=== PATIENT | male | born 1935 | race Caucasian/White ===

== ENCOUNTER 2020-06-14 18:34 | Observation (INO) | payer OTHER ==
--- OUTSIDE RECORDS SUMMARY | 2020-06-14 18:37 | XMS REPORT | Clinical Summary ---
:1935 Author Organization [facility] Address [address] [place] [address] Care Team Providers Name Role Phone Asked, Pcp Primary Care Provider Unavailable Allergies Active Allergy Reactions Severity Noted Date Comments Cefuroxime 03/27/2018 Morphine High 04/25/2016 Redness going u p his arm. Redness going u p his arm. Redness going u p his arm. Opioids - Morphine 07/14/2015 Analogues Penicillins Rash Low 04/25/2016 Sulfa (Sulfonamide Shortness Of Breath High 04/25/2016 Antibiotics) Sulfasalazine 01/21/2012 Medications Medication Sig Dispensed Refills Start Date End Date Status fluticasone (FLONASE) 2 sprays by Each 1 11/25/2016 Active 50 mcg/actuation nasal Nare route as spray needed. MULTIVITAMIN ORAL Take 1 tablet by 0 Active mouth. calcium carb-vitamin Take 1,200 mg by 0 Active D3-vit K2 600 mg-1,000 mouth. unit-90 mcg tablet warfarin (COUMADIN) 7.5 Take 7.5 mg by 0 Active MG tablet mouth. Taking for 6 days vitamins Take by mouth 2 0 Acti ve A,C,V-cecf-nwjerj (two) times a (ICAPS AREDS) day. [id number] onsr-tj-kwhj capsule metoprolol succinate XL Take 25 mg by 3 08/06/2018 Active (TOPROL-XL) 25 mg 24 hr mouth daily. tablet doxazosin (CARDURA) 4 TAKE 1 TABLET BY 90 tablet 4 09/09/2018 Active MG tablet MOUTH EVERY DAY Additional Information Patient taking differently: 4 mg oral nightly, Informant: Self, Reported on 10/27/2019 11:14 AM LISINOPRIL-HCTZ 20-12.5 Take 1 tablet by 0 Active MG COMBO DOSE mouth daily. aspirin (ECOTRIN) 81 MG Take 1 tablet (81 90 tablet 4 04/13/20 1 Active enteric coated tablet mg total) by mouth 9 daily. amLODIPine (NORVASC) 5 Take 1 tablet (5 90 tablet 3 10/18/19 Active mg tablet mg total) by mouth 0 21 daily. lansoprazole (PREVACID) Take 30 mg by 0 Active 30 MG capsule mouth daily. psyllium husk (METAMUCIL Take by mouth. 2 0 Active ORAL) tsp. daily vit Place under the 0 Acti ve D2-byznew-O6-V00-znaovvo tongue. h (B COMPLEX) 1.7-20-2-1.2 mg/mL liquid cholecalciferol, vitamin Take 2,000 Units 0 Active D3, (VITAMIN D3) 2,000 by mouth daily. unit tablet atorvastatin (LIPITOR) TAKE 1 TABLET BY 90 tablet 4 Active 40 MG tablet MOUTH EVERY DAY 0 warfarin (COUMADIN) 5 MG TAKE 1 & 1/2 TABS 135 tablet 3 Active tablet 6 DAYS A WEEK AND 0 1 TAB ONE DAY A WEEK lansoprazole (PREVACID) TAKE 1 CAPSULE 90 capsule 2 10/27/19 Discontinued 30 MG capsule EVERY DAY 6 20 atorvastatin (LIPITOR) Take 1 tablet (40 90 tablet 4 10/27/19 Discontinued 40 MG tablet mg total) by mouth 9 20 daily. warfarin (COUMADIN) 5 MG TAKE 1 & 1/2 TABS 135 tablet 3 10/27/19 Discontinued tablet 6 DAYS A WEEK AND 9 20 1 TAB ONE DAY A WEEK sodium citrate (CITRA PH Take by mouth. 0 10/27/19 Discontinued ORAL) Powder dissolves 20 in water once daily atorvastatin (LIPITOR) Take 40 mg by 0 06/01 Discontinued 40 MG tablet mouth daily. 20 Default OP ins doxazosin (CARDURA) 4 MG Take 4 mg by mouth 0 10/28/19 Discontinued tablet nightly. 20 warfarin (COUMADIN) 5 MG Take 5 mg by mouth 0 03/27/20 Discontinued tablet daily. Taking only 20 on Tuesdays. doxazosin (CARDURA) 4 MG TAKE 1 TABLET BY 90 tablet 4 10/28/19 2 10/28/19 Discontinued tablet MOUTH EVERY DAY 0 20 Active Problems Problem Noted Date Atherosclerosis of mi[place]kmaq coronary artery of mi[place]ma[place] he art without angina 10/21/2019 pectoris Overview: Added automatically from request for [place] jimenez [id number] L[place]ia angina 10/21/2019 Coronary atherosclerosis of mi'kmaq coronary artery 11/2018 History of colonic polyps 04/13/2019 longterm current use of anticoagulant therapy 019 Multiple nodules of lung 03/17/2019 Adenocarcinoma of prostate 02/23/2019 Essential hypertension 11/24/2018 Mixed hyperlipidemia 11/24/2018 Class 1 obesity due to excess calories without serious comorbidity with 11/24/2018 body mass index (BMI) of 31.0 to 31.9 in adult Anticoagulated on Coumadin 03/17/2018 Combined forms of age-related cataract of both eyes Presence of stent in coronary artery in patient with c oronary artery 08/12/2017 disease Atrial fibrillation [I48.91] 08/23/2016 Macular degeneration, bilateral 07/22/2016 Nuclear senile cataract of both eyes 07/22/2016 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 Reflux esophagitis 06/24/2012 Memory loss 01/21/2012 Resolved Problems Problem Noted Date Resolved Date Progressive angina 08/12/2017 11/12/2019 Encounters Date Type Specialty Care Team Description 06/13/2020 Telephone Cardiology Lana Rodriguez MA 06/01/2020 Telephone Cardiology [place], Anticoagulation Anuradha, STEWARD/STEWARDESS SECOND CLASS 05/16/2020 Telephone Cardiology [place], Anticoagulation Anuradha, STEWARD/STEWARDESS SECOND CLASS 05/02/2020 Telephone Cardiology [place], Anticoagulation Anuradha, STEWARD/STEWARDESS SECOND CLASS 04/19/2020 Telephone Cardiology Lana Rodriguez MA 04/04/2020 Telephone Cardiology [place], Anticoagulation Anuradha, STEWARD/STEWARDESS SECOND CLASS 03/26/2020 Refill Cardiology Jose E Lynch MD 03/22/2020 Telephone Cardiology [place], Anticoagulation Anuradha, STEWARD/STEWARDESS SECOND CLASS 03/07/2020 Telephone Cardiology [place], Anticoagulation Anuradha, STEWARD/STEWARDESS SECOND CLASS 02/22/2020 Telephone Cardiology [place], Anticoagulation Anuradha, STEWARD/STEWARDESS SECOND CLASS 02/08/2020 Telephone Cardiology [place], Anticoagulation Anuradha, STEWARD/STEWARDESS SECOND CLASS 01/25/2020 Telephone Cardiology Lana Rodriguez ANTICOAGULATIO Jude Pina, MALCOM 01/18/2020 Refill Cardiology ZoJose E whitman Refill MD Indira 01/11/2020 Telephone Cardiology Lana Rodriguez ANTICOAGULATIO Jude Pina, MALCOM 01/04/2020 Telephone Cardiology [place], Anticoagulation Anuradha, STEWARD/STEWARDESS SECOND CLASS 12/22/2019 Telephone Cardiology [place], Anticoagulation Anuradha, STEWARD/STEWARDESS SECOND CLASS 12/08/2019 Telephone Cardiology [place], Anticoagulation Anuradha, STEWARD/STEWARDESS SECOND CLASS 11/09/2019 [facility] Atrial fibri llation, unspecified type (HCC) (Primary Dx); MD Indira Coronary artery disease with angina pectoris, unspecified vessel or lesion type, unspecified whether mi'kmaq or transplanted heart (HCC); Louisa pina (HCC); Essential hyper tension 11/09/2019 Telephone Cardiology [place], Anticoagulation Anuradha, STEWARD/STEWARDESS SECOND CLASS 10/28/2019 Surgery Procedural Lazaro Meza Selective coron scott Cardiology MD Susan angiography [[id number] (CPT)] 10/28/2019 Hospital Encounter Procedural Lazaro Meza Atheroscl erosis of Cardiology MD Susan mi'kmaq coronary artery of mi'kmaq heart without angina pectoris 10/27/2019 [facility] Indira 10/26/2019 Telephone Cardiology [place], Anticoagulation Anuradha, STEWARD/STEWARDESS SECOND CLASS 10/21/2019 Orders Only Cardiology Libia, Lorenzo [employer] [facility] [place] mi'kmaq coronary artery of mi'kmaq heart without angina pectoris (Primary Dx) 10/19/2019 Office Visit Cardiology Jose E Lynch Atrial fibri llation, unspecified type (HCC) (Primary Dx); MD Indira Essential hyper tension; Mixed hyperlipi demia; Louisa pina (HCC) 10/14/2019 Telephone Cardiology [place], Anticoagulation Anuradha, STEWARD/STEWARDESS SECOND CLASS 09/28/2019 Telephone Cardiology Lana Rodriguez ANTICOAGULATIO Jude Pina, MALCOM 09/20/2019 Telephone Cardiology [place], Anticoagulation Anuradha, STEWARD/STEWARDESS SECOND CLASS 09/01/2019 Telephone Cardiology [place], Anticoagulation Anuradha, STEWARD/STEWARDESS SECOND CLASS 08/18/2019 Telephone Cardiology [place], Anticoagulation Anuradha, STEWARD/STEWARDESS SECOND CLASS 08/04/2019 Telephone Cardiology Lana Rodriguez ANTICOAGULATIO Jude Pina, MALCOM 07/20/2019 Telephone Cardiology [place], Anticoagulation Anuradha, STEWARD/STEWARDESS SECOND CLASS 07/06/2019 Telephone Cardiology [place], Anticoagulation Anuradha, STEWARD/STEWARDESS SECOND CLASS 06/22/2019 Telephone Cardiology Naeem Anticoagulation Anuradha, STEWARD/STEWARDESS SECOND CLASS after 06/14/2019 Family History Medical History Relation Name Comments Colon cancer Father Liam Loredo Colon polyps Father Liam Loredo No Known Problems Mother Relation Name Status Comments Father Liam Loredo Mother Social History Tobacco Use Types Packs/Day Years Used Date Former Smoker Cigarettes, Pipe, Cigars 1.5 10 Qu it: 1970 Smokeless Tobacco: Never Used Tobacco Cessation: Counseling Given: No Alcohol Use Drinks/Week oz/Week Comments Not Currently Sex Assigned at Date Recorded Not on file Job Start Date Occupation Industry Not on file Not on file Not on file Travel History Travel Start Travel End No recent travel history available. Last Filed Vital Signs Vital Sign Reading Time Taken Comments Blood Pressure 151/80 11/19/2019 9:44 AM HEEL [facility]DER Pulse 60 11/19/2019 9:44 AM HEEL MOLDER Temperature 36.9 C (98.5 F) 10/28/2019 1:30 PM HEEL MOLDER Respiratory Rate 16 11/09/2019 10:02 AM HEEL MOLDER Oxygen Saturation 100% 11/19/2019 9:44 AM HEEL MOLDER Inhaled Oxygen Concentration - - Weight 102 kg (224 lb) 11/19/2019 9:44 AM HEEL MOLDER Height 167.6 cm (5' 6") 11/19/2019 9:44 AM HEEL MOLDER Body Mass Index 36.15 11/19/2019 9:44 AM HEEL MOLDER Plan of Treatment Health Maintenance Due Date Last Done Comments SHINGLES VACCINES (#1) 1984 65+ PNEUMOCOCCAL VACCINE (1 of 2 - PCV13) 1999 INFLUENZA VACCINE 07/13/2020 07/15/2019, 07/14/2018 Procedures Procedure Name Priority Date/Time Associated Diagnosis Comme nts PROTHROMBIN TIME WITH Routine 06/13/2020 Result s for this INR procedure are i n the results section. PROTHROMBIN TIME WITH Routine 05/31/2020 Result s for this INR procedure are i n the results section. PROTHROMBIN TIME WITH Routine 05/02/2020 Result s for this INR procedure are i n the results section. PROTHROMBIN TIME WITH Routine 04/18/2020 Result s for this INR procedure are i n the results section. PROTHROMBIN TIME WITH Routine 04/04/2020 Result s for this INR procedure are i n the results section. PROTHROMBIN TIME WITH Routine 03/21/2020 Result s for this INR procedure are i n the results section. PROTHROMBIN TIME WITH Routine 03/07/2020 Result s for this INR procedure are i n the results section. PROTHROMBIN TIME WITH Routine 02/22/2020 Result s for this INR procedure are i n the results section. PROTHROMBIN TIME WITH Routine 02/08/2020 Result s for this INR procedure are i n the results section. PROTHROMBIN TIME WITH Routine 01/25/2020 Result s for this INR procedure are i n the results section. PROTHROMBIN TIME WITH Routine 01/11/2020 Result s for this INR procedure are i n the results section. PROTHROMBIN TIME WITH Routine 01/04/2020 Result s for this INR procedure are i n the results section. PROTHROMBIN TIME WITH Routine 12/22/2019 Result s for this INR procedure are i n the results section. PROTHROMBIN TIME WITH Routine 12/08/2019 Result s for this INR procedure are i n the results section. NM MYOCARDIAL Routine 11/19/2019 3:36 Coronary artery Results for this PERFUSION STRESS REST PM HEEL MOLDER disease with angina procedure are in 1 DAY pectoris, unspecified the re sults vessel or lesion type, secti on. unspecified whether mi'kmaq or transplanted heart (HCC) CV STRESS TEST Routine 11/19/2019 3:36 Coronary artery Result s for this NUCLEAR CARDIO PM HEEL MOLDER disease with angina proced ure are in pectoris, unspecified the re sults vessel or lesion type, secti on. unspecified whether mi'kmaq or transplanted heart (HCC) ECG 12-LEAD Routine 11/09/2019 10:17 Atrial fibrillation, Res ults for this AM [facility]EL M[facility]DER unspecified type (HCC) proce dure are in the results section. PROTHROMBIN TIME WITH Routine 11/09/2019 Result s for this INR procedure are i n the results section. CV SELECTIVE CORONARY Routine 10/28/2019 12:57 Atherosclerosis of Results for this ANGIOGRAPHY PM HEEL MOLDER mi'kmaq coronary artery proce dure are in of mi'kmaq heart the results without angina section. pectoris PROTHROMBIN TIME WITH STAT 10/28/2019 11:56 Re sults for this INR AM [facility]EL M[facility]DER procedure are i n the results section. POC PANEL Routine 10/28/2019 11:54 Results for this AM [facility]EL [facility]DER procedure are i n the results section. ESTIMATED GFR Routine 10/28/2019 11:54 Results fo r this AM [facility]EL [facility]DER procedure are i n the results section. PROTHROMBIN TIME WITH Routine 10/26/2019 Result s for this INR procedure are i n the results section. COMPREHENSIVE Routine 10/19/2019 12:13 Atrial fibrillation, Re sults for this METABOLIC PANEL PM HEEL MOLDER unspecified type (HCC) procedure are in Essential hypert ension the results Mixed hyperlipidemia section . CBC WITH PLATELET AND Routine 10/19/2019 12:13 Atrial fibrilla tion, Results for this DIFFERENTIAL PM HEEL MOLDER unspecified type (HCC) procedure are in Essential hypert ension the results Mixed hyperlipidemia section . ECG 12-LEAD Routine 10/19/2019 11:10 Atrial fibrillation, Res ults for this AM HEEL MOLDER unspecified type (HCC) proce dure are in the results section. PROTHROMBIN TIME WITH Routine 10/13/2019 Result s for this INR procedure are i n the results section. PROTHROMBIN TIME WITH Routine 09/28/2019 Result s for this INR procedure are i n the results section. PROTHROMBIN TIME WITH Routine 09/16/2019 Result s for this INR procedure are i n the results section. PROTHROMBIN TIME WITH Routine 09/01/2019 Result s for this INR procedure are i n the results section. PROTHROMBIN TIME WITH Routine 08/18/2019 Result s for this INR procedure are i n the results section. PROTHROMBIN TIME WITH Routine 08/04/2019 Result s for this INR procedure are i n the results section. PROTHROMBIN TIME WITH Routine 07/20/2019 Result s for this INR procedure are i n the results section. PROTHROMBIN TIME WITH Routine 07/06/2019 Result s for this INR procedure are i n the results section. PROTHROMBIN TIME WITH Routine 06/22/2019 Result s for this INR procedure are i n the results section. after 06/14/2019 Results Prothrombin time with INR (06/13/2020)Only the most recent of26 resultswithin the time period is included. Pathologist [facility] [place] 2.50 EXTERNAL LAB NON-INTERFACED Specimen Blood Performing Organization Address [facility] Phone Number EXTERNAL LAB NON-INTERFACED Cv stress test (11/19/2019 3:36 PM HEEL MOLDER) Resting HR 66 [facility] Resting BP 151 [facility] Peak MET Achieved 1.0 [facility] Protocol Name Isauro [facility] Time in Exercise 00:00:15 [facility] Phase Max Systolic BP 151 [facility] Max Diastolic BP 80 [facility] Max Heart Rate 91 [facility] Max Predicted Heart 135 [facility] Rate Target HR Formula (220 - Age)*85% [facility] Test Indication coronary artery disease [facility] with angina pectioris Arrhy During Ex [facility] ECG Interp Before EX [facility] ECG Interp During Ex [facility] Ex Summary Comment [facility] Overall HR Response [facility] to Exercise Overall BP Response [facility] To Exercise Reason for As per Isauro [facility] Termination protocol Stress Test Waveform interpreted in [facility] Impression report associated with image study. No interpretation is provided as part of this Stress ECG report.--Electronically Signed By Maycol COVARRUBIAS, Radha Monteiro ([id number]), editorial director Jacqueline Flannery ([id number]) on 11/23/2019 9:14:38 AM Specimen Narrative Performed At This result has an attachment that is no t available. Performing Organization Address City/State/Zipcode Phone Number [facility] [address] [place] [address] Nd myocardial perfusion (11/19/2019 3:36 PM HEEL MOLDER) Specimen Narrative Performed At [facility] [address] [facility], [address] [place] [id number] Myocardial Pe rfusion Imaging Report Pat.Name: AV LOREDO Pat.ID: [id number]Date: 11/19/2019 Refer.MD: JOSE E LYNCH MD Exam Time: 10:38:00 AM Study Type:Myocardial Perfusion Imaging Height: 69in Weight: 224lb BSA: 2.17 m2 Ag e: 1935,84Y Sex: MALE Nuclear Tech:GEOVANI LassiterMT, [facility] ( [place]) Nuclear Event ID:[id number] Order ID: [id number] Reason for Study:CAD, unspecified*, Shor tness of breath Procedures: Single Day Stress / Rest Race: Clinical Symptoms:Regadenoson SUMMARY: BASELINE ECG Atrial fibrillation with slow ventricular response, Nonspecific ST abnormality STRESS TEST RESULTS Maximal Predicted HR 135 beats/minute 85% Maximal Predicted HR 114 beats/minute Stress Test Duration 1 minutes 00 seco nds Resting Heart Rate 66 beats/minute Max imal Heart Rate 91 beats/minute Resting Blood Pressure 151/80 mmHg Max imal Blood Pressure 151/80 mmHg % Maximal Heart Rate Achieved 67% Symptoms During Test None Reason for Stopping Test As per regade noson protocol Maximal ST-segment shift None Stress-Induced Arrhythmias None Ischemic electrocardiographic changes (S T-segment depression) did not occur at peak regadenoson stress. _. STRESS TEST INTERPRETATION Normal saturnino l regadenoson stress test. _. SCINTIGRAPHIC RESULTS Perfusion Defect Size (% LV) 0 % Total 0 % Ischemia 0 % Scar Left Ventricular Perfusion Results There is normal tracer distribution duri ng stress and rest. Gated SPECT Results The post-stress left ventricular ejectio n fraction is 73 % with normal regional wall motion and left ventricula r thickening. Left ventricular end-diastolic volume is 88 m l; end-systolic volume is 24 ml. The left ventricle is of normal size at stress and at rest. The right ventricle is of normal size with n ormal wall motion. Conclusion Normal regadenoson Tc-99m tetrofosmin my ocardial perfusion study. The left ventricular ejection fraction is no rmal. Comments Patients with a normal stress myocardial perfusion study have a low (< 1%) annual risk of cardiac or nonf atal myocardial infarction. Study Quality/Artifacts The study quality is good. The mild redu ction in basal inferolateral wall counts during stress is probably du e to diaphragmatic and other soft tissue attenuation artifacts rather than coronary artery disease. Comparison to Previous Study The previous study dated 02/03/2017 was a lso normal. FINDINGS: Signed 11/19/2019 04:14 PM Radha Severino MD Procedure Note Interface, Radiology Results In - 2019 4:14 PM HEEL MOLDER Nuclear Cardiology L [facility] [address] [facility], [address] [place], [place] [address] Fax: Myocardial Perfusion I magganesh Report Pat.Name: AV LOREDOI D: [id number] .Date: 11/19/2019 Refer .MD: JOSE E LYNCH MD Exam Time: 10:38:00 AM Study Type:Myocardial Perfusion Imaging Height: 69in Weigh t: 224lb BSA: 2.17 m2 Age: 7 1935,84Y Sex: MALE Nuclear Tech:Emelina Levin [facility] ( [place]) Nuclear Event ID:[id number] Order ID: [id number] Reason for Study:CAD, unspecified*, Shor tness of breath Procedures: Single Day Stress / Rest Race: Clinical Symptoms:Regadenoson SUMMARY: BASELINE ECG Atrial fibrillation with s low ventricular response, Nonspecific ST abnormality STRESS TEST RESULTS Maximal Predicted HR 135 beats/minute 8 5% Maximal Predicted HR 114 beats/minute Stress Test Duration 1 minutes 00 secon ds Resting Heart Rate 66 beats/minute Maxi mal Heart Rate 91 beats/minute Resting Blood Pressure 151/80 mmHg Maxi mal Blood Pressure 151/80 mmHg % Maximal Heart Rate Achieved 67% Symptoms During Test None Reason for Stopping Test As per regaden oson protocol Maximal ST-segment shift None Stress-Induced Arrhythmias None Ischemic electrocardiographic changes (S T-segment depression) did not occur at peak regadenoson stress. _. STRESS TEST INTERPRETATION Normal saturnino l regadenoson stress test. _. SCINTIGRAPHIC RESULTS Perfusion Defect Size (% LV) 0 % Total 0 % Ischemia 0 % Scar Left Ventricular Perfusion Results There is normal tracer distribution duri ng stress and rest. Gated SPECT Results The post-stress left ventricular ejectio n fraction is 73 % with normal regional wall motion and left ventricula r thickening. Left ventricular end-diastolic volume is 88 m l; end-systolic volume is 24 ml. The left ventricle is of normal size at stress and at rest. The right ventricle is of normal size with n ormal wall motion. Conclusion Normal regadenoson Tc-99m tetrofosmin my ocardial perfusion study. The left ventricular ejection fraction is no rmal. Comments Patients with a normal stress myocardial perfusion study have a low (< 1%) annual risk of cardiac or nonf atal myocardial infarction. Study Quality/Artifacts The study quality is good. The mild redu ction in basal inferolateral wall counts during stress is probably du e to diaphragmatic and other soft tissue attenuation artifacts rather than coronary artery disease. Comparison to Previous Study The previous study dated 02/03/2017 was a lso normal. FINDINGS: Signed 11/19/2019 04:14 PM Radha Severino MD Performing Organization Address [facility] Phone Number [facility] [id number] [place] [address] ECG 12 lead (11/09/2019 10:17 AM HEEL MOLDER)Only the most recent of2 resultswithin the time period is included. Pathologist Sig nature Ventricular rate 61 [facility] Atrial rate 88 [facility] QRSD interval 92 [facility] QT interval 428 [facility] QTC interval 430 [facility] QRS axis 1 -39 [facility] T wave axis -20 [facility] EKG impression Atrial [facility] fibrillation-Left axis deviation-Abnormal ECG-In automated comparison with ECG of 19-OCT-2019 11:10,-No significant change was found- Specimen Narrative Performed At This result has an attachment that is no t available. Performing Organization Address City/[facility] Phone Number [facility] [address] [place] [address] blood bank laboratory technologist procedure (10/28/2019 12:57 PM HEEL MOLDER) Specimen Narrative Performed At This result has an attachment that is no t available. PATIENT PROFILE: SYNGO 84 YO M with PMHx of HTN, HLD, Afib and CAD now presen ting with worsening angina. PROCEDURE DETAILS: The right radial artery was located, skin was infiltra valorie was lidocaine. The artery was accessed under ultrasound guidance delores carrera the Seldinger technique, and a 6F glidesheath was inserted. NTG and verapamil were administered intra-arterially via sheath. Heparin was administered intravenously. A TIG catheter was advanced over a wh oley wire and selective coronary angiography was performed, standard views were obtained. 6Fr 3DRC was used for right coronary angiogr aphy. At the end of the procedure, the right radial sheath w as removed and TR band was applied. DIAGNOSTIC ANGIOGRAM: LMT: Mild (20%) stenosis distally. LAD: Mild (40%) stenosis proximal and distal to prior stent. Patent stent with no ISR in mid LAD LCx: Mild disease in the proximal segment. Non dominan t artery. RCA: Mild (40%) disease in the proximal segment. CONCLUSION: - Patent stent in mid LAD. - Mild disease elsewhere. - No significant interval changes since the last cath in 2016. PLAN: - Aggressive medical management and life style modific ations Performing Organization Address [facility] Phone Number [facility] [address] [place] [address], Estimated GFR (10/28/2019 11:54 AM HEEL MOLDER) [facility] Estimated GFR 77 mL/min/1.73 [facility] Comment: HOSPITAL Catergory Units Interpretation G1 >=90 Normal or high G2 60-89 Mildly decreased G3a 45-59 Mildly to moderately decreas ed G3b 30-44 Moderately to severely decre ased G4 15-29 Severely decreased G5 <15 Kidney failure The eGFR was calculated using the Chronic Kidney Disea se Epidemiology Collaboration (CKD-EPI) equation. Interpretation is based on recommendations of the National Kidney Foundation-Kidney Disease Outcomes Lenin lity Initiative (NKF-KDOQI) published in 2014. Specimen Blood Performing Organization Address [facility] [facility]/Zipcode Phone Number [facility] DEPARTMENT OF PATHOLOGY AND [address] [place], [place] [address] GENOMIC MED[address]INE [address] [address] POC panel (10/28/2019 11:54 AM HEEL MOLDER) Pathologist [facility] POC sodium 137 135 - 148 [facility] mmol/L [facility] POC potassium 4.1 3.5 - 5.0 [facility] mmol/L [facility] POC chloride 101 99 - 109 [facility] mmol/L [facility] POC CO2 28 24 - 31 mmol/L [facility] POC glucose 116 (H) 65 - 99 mg/dL [facility] POC BUN 17 8 - 24 mg/dL [facility] POC creatinine 0.9 0.7 - 1.2 [facility] mg/dl [facility] POC hematocrit 37 (L) 41 - 51 % [facility] POC anion gap 14 8 - 20 mmol/L [facility] Comment: HOSPITAL Stuffed Casing Tier Name: Radha Penalzoa Device ID: [id number] Specimen Performing Organization Address City/State/Zipcode Phone Number [facility] DEPARTMENT OF PATHOLOGY AND [address] [place], [place] [address] GENOMIC MEDICINE [facility] [address] [place] [phone] CBC with platelet and differential (10/19/2019 12:13 PM HEEL MOLDER) WBC 4.8 3.8 - 10.8 [facility] Thousand/uL [place] RBC 3.56 (L) 4.20 - 5.80 [facility] Million/uL [place] HGB 12.9 (L) 13.2 - 17.1 [facility] g/dL [place] HCT 36.2 (L) 38.5 - 50.0 % [facility] [place] MCV 101.7 (H) 80.0 - 100.0 [facility] fL [place] MCH 36.2 (H) 27.0 - 33.0 pg [facility] [place] MCHC 35.6 32.0 - 36.0 [facility] g/dL [place] RDW 14.1 11.0 - 15.0 % [facility] Platelet count 158 140 - 400 [facility] Thousand/uL [place] MPV 11.7 7.5 - 12.5 fL [facility] Neutrophils, absolute 3,029 1,500 - 7,800 [facility] cells/uL [place] Lymphocytes, absolute 1,022 850 - 3,900 [facility] cells/uL [place] Monocytes, absolute 518 200 - 950 [facility] cells/uL [place] Eosinophils, absolute 202 15 - 500 [facility] cells/uL [place] Basophils, absolute 29 0 - 200 [facility] cells/uL [place] Neutrophils 63.1 % [facility] [place] Lymphocytes 21.3 % [facility] [place] Monocytes 10.8 % [facility] [place] Eosinophils 4.2 % [facility] Basophils + RC 0.6 % [facility] [place] Specimen Blood Resulting Agency Comment Performing Organization Information: Site ID: [id number] Name: [facility] Danielle lin Address: [address] [place] [id number] Director: Warren Mcmullen Performing Organization Address City/State/Zipcode Phone Number [facility] [place] [address] [place] [address] Comprehensive metabolic panel (10/19/2019 12:13 PM HEEL MOLDER) Glucose 109 (H) 65 - 99 [facility] Comment: mg/dL [place] Fasting reference interval For someone without known diabetes, a glucose value between 100 and 125 mg/dL is consistent with prediabetes and should be confirmed with a follow-up test. BUN 16 7 - 25 mg/dL [facility] [place] Creatinine 0.93 0.70 - 1.11 [facility] Comment: mg/dL [place] For patients >49 years of age, the reference limit for Creatinine is approximately 13% higher for people identified as -Surinamese. EGFR Non-Afr. 75 > OR = 60 [facility] [place]amese mL/min/1.73m [place] 2 EGFR 86 > OR = 60 [facility] [place] mL/min/1.73m [place] 2 BUN/creatinine NOT APPLICABLE 6 - 22 [facility] ratio (calc) [place] Sodium 141 135 - 146 [facility] mmol/L [place] Potassium 4.1 3.5 - 5.3 [facility] mmol/L [place] Chloride 102 98 - 110 [facility] mmol/L [place] CO2 31 20 - 32 [facility] mmol/L [place] Calcium 9.9 8.6 - 10.3 [facility] mg/dL [place] Protein 6.9 6.1 - 8.1 [facility] g/dL [place] Albumin, S 4.3 3.6 - 5.1 [facility] g/dL [place] Globulin, total 2.6 1.9 - 3.7 [facility] g/dL (calc) [place] Albumin/globulin 1.7 1.0 - 2.5 [facility] ratio (calc) [place] Total bilirubin 0.7 0.2 - 1.2 [facility] mg/dL [place] Alkaline 47 40 - 115 U/L [facility] phosphatase [place] AST 34 10 - 35 U/L [facility] [place] ALT 50 (H) 9 - 46 U/L [facility] [place] Specimen Blood Resulting Agency Comment Performing Organization Information: Site ID: [id number] Name: [facility] Address: [address] [place] [address] Director: Warren Mcmullen Performing Organization Address City/State/Zipcode Phone Number [facility] [place] [address] [place] [address] [phone] after 06/14/2019 (Work) Advance Directives For more information, please contact: [phone] Type Date Recorded Patient Telemetry Monitor Explanati on Advance Directives, Living Will 01/21/2017 10:57 AM and Medical Power of Animal Damage Control Agent
--- OUTSIDE RECORDS SUMMARY | 2020-06-14 18:37 | XMS REPORT | Clinical Summary ---
:1935 Author Organization [facility] Address [address] [place] [address] Care Team Providers Name Role Phone Mathew Garsia MD Primary Care Provider Allergies Active Allergy Reactions Severity Noted Date Comments Cefuroxime 03/27/2018 Morphine 04/25/2016 Redness going u p his arm. Penicillins Rash Low 04/25/2016 Sulfa (Sulfonamide Shortness Of Breath High 04/25/2016 Antibiotics) Medications Medication Sig Dispensed Refills Start Date End Date Status atorvastatin (LIPITOR) Take 20 mg by 0 Active 20 MG tablet mouth daily. clopidogrel (PLAVIX) 75 Take 75 mg by 0 Active mg tablet mouth daily. doxazosin (CARDURA) 4 Take 4 mg by 0 Active MG tablet mouth nightly. fluticasone (FLONASE) 1 spray by Nasal 0 Active 50 mcg/actuation nasal route daily. spray lisinopril Take 20 mg by 0 Activ e (PRINIVIL,ZESTRIL) 20 mouth daily. MG tablet olopatadine (PATADAY) Apply to eye(s). 0 Active 0.2 % Drop lansoprazole (PREVACID) Take 30 mg by 0 Active 30 MG capsule mouth daily. warfarin (COUMADIN) 10 Take 10 mg by 0 Active MG tablet mouth daily. warfarin (COUMADIN) 7.5 Take 7.5 mg by 0 Active MG tablet mouth daily. difluprednate (DUREZOL) Apply to eye(s). 0 Active 0.05 % Drop bromfenac (PROLENSA) Apply to eye(s). 0 Active 0.07 % Drop polymyxin B 1 drop. 0 Active sulf-trimethoprim (POLYTRIM) 10,000 unit- 1 mg/mL Drop omega 5-myj-tqm-fish Take by mouth. 0 Active oil (FISH OIL) 1,000 mg (120 mg-180 mg) Cap loratadine (CLARITIN) Take 10 mg by 0 Active 10 mg tablet mouth daily. multivitamin per tablet Take 1 tablet by 0 Active mouth daily. cholecalciferol, Take by mouth. 0 Active vitamin D3, 2,000 unit Cap cyanocobalamin (VITAMIN Take 1,000 mcg by 0 Active B-12) 1000 MCG tablet mouth daily. calcium Take 1 tablet by 0 Act joao carbonate-vitamin D3 mouth 2 (two) (CALCIUM-VITAMIN D) 500 times daily with mg(1,250mg) -200 unit breakfast and per tablet dinner. ascorbic acid, vitamin Take 1,000 mg by 0 Active C, (VITAMIN C) 1000 MG mouth daily. tablet VIT A/VIT C/VIT Take by mouth. 0 Active E/ZINC/COPPER (ICAPS AREDS ORAL) Active Problems Not on file Social History Tobacco Use Types Packs/Day Years Used Date Former Smoker Quit: 10/13/18 63 Smokeless Tobacco: Never Used Alcohol Use Drinks/Week oz/Week Comments No Sex Assigned at Date Recorded Not on file Job Start Date Occupation Industry Not on file Not on file Not on file Travel History Travel Start Travel End No recent travel history available. Last Filed Vital Signs Not on file Plan of Treatment Not on file Implants Implanted Type Area Precision Lens Centerer And Edger Device Shelf Model / Identifier Expiration Serial / Lot Date Ring Tension Capsular 12-14.5 Actr12 - [id number] Ophthalmology Left: [facility]:SURG 02/09/2022 [id number] / Implanted: Qty: 1 on 03/30/2018 by Bob Kunz MD Eye [id number] / [employer]ERSON Iol Lens 16.0 Diopter [id number] 16.0 - [id number] Ophthalmology Left: [employer] 02/15/2021 [id number] 16.0 / Implanted: Qty: 1 on 03/30/2018 by Bob Kunz MD Eye [id number] / Iol Tecnis Toric Aspheric 225 [id number] - [id number] Ophthalm ology Right: [employer] & 01/22/2021 [id number] / Implanted: Qty: 1 on 05/11/2018 by Bob Kunz MD [employer] [id number] / Results Not on fileafter 06/14/2019 Insurance Payer Benefit Plan / Subscriber ID Type Phone Address Group AET[employer] - MEDICARE AETNA MEDICARE HMO xxxxxxxx [address] [place] [address]
--- OUTSIDE RECORDS SUMMARY | 2020-06-14 18:38 | XMS REPORT | Summary of Care ---
:1935 Author Organization [facility] [place] [address] Care Team Providers Name Role Phone Mathew Garsia MD Primary Care Provider Reason for Visit Reason Comments Procedure Outpatient Surgery (Routine) Status Reason Specialty Diagnoses / Referred By Referred To Procedures Contact Contact Authorization Not Ophth Cornea Diagnoses Other secondary cataract, left eye YAG OS ADVISED MASK REQ. Ze Cooley Douglas Needed Specialist / Procedures PA DISCISSION,2ND CATARACT,LASER YAG LASER 15 Ca Prado MD Ophthalmology OD [address] Phone: [phone] Phone: Encounter Details Date Type Department Care Team Description 05/09/2020 Office Visit [facility] Bob Kunz MD Procedure Ophthalmology [address] 1977 [facility] [place] [address] [place] [address] [phone] Allergies Active Allergy Reactions Severity Noted Date Comments Cefuroxime 03/27/2018 Opioid Analgesics 07/14/2015 Penicillin G Potassium 01/21/2012 Sulfa Antibiotics 01/21/2012 documented as of this encounter (statuses as of 05/09/2020) Medications Medication Sig Dispensed Refills Start Date End Date Status doxazosin (CARDURA) 4 MG Take 4 mg by 0 Active tablet mouth daily. warfarin (COUMADIN) 7.5 Take 7.5 mg by 0 Active MG tablet mouth daily. Mondays, Friday, Fri, and Fred aspirin 81 MG tablet Take 81 mg by 0 Active mouth daily. lisinopril (PRINIVIL, Take 10 mg by 0 Active ZESTRIL) 10 MG tablet mouth two times daily. Multiple Take by mouth. 0 Acti ve Vitamins-Minerals (VITEYES COMPLETE OR) olopatadine HCl 0 Acti ve (PATADAY) 0.2 % ophthalmic solution atorvastatin (LIPITOR) Take 20 mg by 0 Active 20 MG tablet mouth daily. Xpihimn-Tddxdlqhw-Ihhssi Take 1,200 mg by 0 Active n D (CALCIUM 1200+D3 OR) mouth. Cholecalciferol (VITAMIN Take by mouth. 0 Active D3) 2000 UNITS CAPS Cyanocobalamin (VITAMIN Take by mouth. 0 Active B-12 OR) docusate (COLACE) 50 Take 1 tablet by 0 Active MG/5ML liquid mouth. Nepafenac (ILEVRO) 0.3 % Place 1 Drop 1.7 mL 1 01/21/2018 Active SUSP into the left eye daily. Calcium Take 1 Tab by 0 Active Carb-Cholecalciferol mouth. (CALCIUM-VITAMIN D) 500-200 MG-UNIT per tablet lisinopril-hydrochloroth TAKE 1 TABLET BY 3 05/14/20 19 Active iazide (PRINZIDE, MOUTH TWICE A ZESTORETIC) 20-12.5 MG DAY per tablet Multiple Vitamin Take 1 Tab by 0 Active (MULTI-VITAMINS) TABS mouth. metoprolol (TOPROL-XL) Take 25 mg by 0 06/19/2018 Active 25 MG XL tablet mouth. fluticasone (FLONASE) 50 daily as needed. 0 11/25/19 17 Active MCG/ACT nasal spray FERROCITE 324 MG TABS TAKE 1 TABLET BY 0 04/19/2020 Active MOUTH EVERY DAY Calcium-Vitamin Take 1,200 mg by 0 Active D-Vitamin K mouth. 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 COVID-19 Exposure Response Date Recorded In the last month, have you been in contact with No / Unsure 05/05/2020 11:46 AM CDT someone who was confirmed or suspected to have Coronavirus / COVID-19? documented as of this encounter Last Filed Vital Signs Not on filedocumented in this encounter Progress Notes Bob Kunz MD - 05/09/2020 3:25 PM CDTWill likely need OD done soon documented in this encounter Plan of Treatment Date Type Specialty Care Team Description 05/24/2020 Office Visit Ophthalmology Jacob Sebastian, OD [address] [facility] [address] [place], [place] [address] [phone] Health Maintenance Due Date Last Done Comments TETANUS SHOT (ADULT) 1950 FALL SCREEN 1999 PNEUMOVAX >=65 (PPSV23) 1999 MEDICARE AWV (Initial) 10/13/2013 FLU VACCINE > 6 MONTHS 05/13/2020 documented as of this encounter Procedures Procedure Name Priority Date/Time Associated Comments Diagnosis YAG CAPSULOTOMY - OS Routine 05/09/2020 5:44 PCO (posterior R esults for this - LEFT EYE PM CDT capsular procedure are i n opacification), the results bilateral section. documented in this encounter Results YAG CAPSULOTOMY - OS - LEFT EYE (05/09/2020 5:44 PM CDT) Specimen Impressions Performed At AND REVIEW OF INFORMED CONSENT: Memo Loredo and I have discussed that there is a visually significant secondary cataract (cloudy posterior capsu le) in the left eye and that the patient has requested Nd:YAG laser surger y. I have reviewed with the patient the risks, benefits, and alternatives to this surgery. The major potential sight-threatening complication is retinal detachment, which would require additional surgery a nd could result in permanent partial or complete loss of vision. A partial list of other potential complications includes glaucoma, floaters, and damage to the lens implant. PLAN: The planned procedure is Nd:YAG posterior capsulotomy in the left eye. Nd:YAG posterior capsulotomy was perform ed on the left eye. Parameters were: 22 pulses 3.5 mJ There were no complications. One drop of Combigan was given, and I reviewed instructions re care of the eye and activity. Narrative Performed At ASSESSMENT: Posterior capsular opacification, left e ye documented in this encounter Visit Diagnoses Diagnosis PCO (posterior capsular opacification), bilateral - Primary After-cataract, unspecified documented in this encounter Insurance Payer Benefit Plan / Subscriber ID Effective Dates Phone Addre ss Type Group [employer] MEDICARE PLAN PPO xxxxxxxx 2013-Present [address] [place] [id number] documented as of this encounter
--- OUTSIDE RECORDS SUMMARY | 2020-06-14 18:38 | XMS REPORT | Continuity of Care Document ---
:1935 Author Organization [facility] t Address [address] [place] [place] [address] Care Team Providers Name Role Phone Mathew Garsia MD Primary Care Physician Jeny Rodriguez MA Attending Clinician Unavailable Naeem ZAVALA Attending Clinician Unavailable Rachael Sebastian OD Attending Clinician Indira Gao MD Attending Clinician Sabino COVARRUBIAS RMichelle Attending Clinician Libia العراقي Attending Clinician Unavailable SABINO Admitting Clinician Unavailable Payers Payer Name Policy Type Policy Number Effective Date Expiration Date S alma AETNA xxxxxxxx 2013 [place] MEDICAREAETNA 00:00:00 Hindu MEDIC[facility] HMO[facility] Problems Condition Condition Condition Status Onset Resolution Last Treating Co mments Source Name Details Category Date Date Treatment Clinician Date Atheroscle Atheroscle Disease Active Overview : [place] rosis of rosis of 10-21 Added Method i benton benton 00:00: automatic st coronary coronary 00 ally from artery of artery of request benton benton for heart heart surgery without without [id number] angina angina pectoris pectoris Crescendo Crescendo Disease Active Yael ston angina angina 10-21 Methodi 00:00: st 00 Coronary Coronary Disease Active [place]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 atheroscle 04-13 [facility] rosis of rosis of 00:00: st benton benton 00 coronary coronary artery artery History of History of Disease Active H matias colonic colonic 04-13 Methodi polyps polyps 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: 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 MCFP Disease Active Yael kovacs current current 04-13 Methodi use of use of 00:00: st anticoagul anticoagul 00 ant ant therapy therapy Multiple Multiple Disease Active [place] nodules of nodules of 03-17 Me odi lung lung 00:00: st 00 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 00:00: st 00 Essential Essential Disease Active Yael kovacs hypertensi hypertensi 2-12 Me thodi on on 00:00: st 00 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 2-12 Me thodi emia emia 00:00: st 00 Class 1 Class 1 Disease Active [place] obesity obesity 2-12 Methodi due to due to 00:00: st excess excess 00 calories calories without without serious serious comorbidit comorbidit y with y with body mass body mass index index (BMI) of (BMI) of 31.0 to 31.0 to 31.9 in 31.9 in adult adult Anticoagul Anticoagul Disease Active H matias ated on ated on 03-17 Methodi Coumadin Coumadin 00:00: st 00 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 Method i 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 age-relate 00:00: st d cataract d cataract 00 of both of both eyes eyes Presence Presence Disease Active 2016-10 [place] of stent of stent 0 Method i in in 00:00: st coronary coronary 00 artery in artery in patient patient with with coronary coronary artery artery disease disease Atrial Atrial Disease Active 2015-10 [place] fibrillati fibrillati 1-11 Me thodi on on 00:00: st [I48.91] [I48.91] 00 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 0-10 Me thodi on, on, 00:00: st bilateral bilateral 00 Nuclear Nuclear Disease Active 2015-10 [place] senile senile 0-10 Methodi cataract cataract 00:00: st of both of both 00 eyes eyes Pseudoexfo Pseudoexfo Disease Active 2015-10 matias liation liation 0-10 Methodi (PXF) of (PXF) of 00:00: st lens lens 00 capsule capsule Reflux Reflux Disease Active [place] esophagiti esophagiti 9-12 Me thodi s s 00:00: st 00 Memory Memory Disease Active [place] loss loss 4-10 Methodi 00:00: st 00 History of Past Illness Condition Condition Condition Status Onset Resolution Last Treating Co mments Source Name Details Category Date Date Treatment Clinician Date Progressiv Progressiv Disease Resolve 2016-102019-11-12 2019-11-12 [place] e angina e angina d 00:00:00 06:26:17 Me thodi 00:00: st 00 Allergies, Adverse Reactions, Alerts Allergy Allergy Status Severity Reaction(s) Onset Inactive Treating Comm ents Source Name Type Date Date Clinician Cefuroxi Propensi Active [facility] adverse [facility]: [facility] reaction 00 Center s Cefuroxi Propensi Active [place] ty to 6-15 Methodi adverse 00:00: st reaction 00 s to drug Morphine Propensi Active Redness [facility] 7[facility]14 [facility] up [facility] - adverse 00:00: his arm. Medical reaction 00 Center s Penicill Propensi Active Rash [facility] ins ty to 7-14 [facility] - adverse 00:00: Medical reaction 00 Center s Sulfa Propensi Active Shortness Of [facility] (Sulfona ty to Breath 7-14 [facility] - mide adverse 00:00: Medical Antibiot reaction 00 Center ics) s Morphine Propensi Active Severe Redness [place] ty to 7-14 going up Methodi adverse 00:00: his st reaction 00 arm.Redne s to ss going drug up his arm.Redne ss going up his arm. Penicill Propensi Active Rash [place] ins ty to 7-14 Methodi adverse 00:00: st reaction 00 s to drug Sulfa Propensi Active Shortness Of [place] ra[place] (Sulfona ty to Breath 7-14 Methodi mide adverse 00:00: st Antibiot reaction 00 ics) s to drug Opioids Propensi Active 2014-10 [facility] - ty to 0-02 Methodi Morphine adverse 00:00: st Analogue reaction 00 s s to drug Sulfasal Propensi Active [place] azine ty to 4-10 Methodi adverse 00:00: st reaction 00 s to drug Family History Family Member Diagnosis Comments Start Date Stop Date Source Natural father Colon cancer Allen Dillon Natural father Colon polyps Allen Dillon Natural mother No Known Problems Yaelsamara Dillon Social History Social Habit Start Date Stop Date Quantity Comments Source History of tobacco Current smoker Memo cabezas Hindu use Sex Assigned At [facility] ethodist Cigarettes smoked 2019-11-19 2019-11-19 Allen Jacobsonist current (pack per 00:00:00 00:00:00 day) - Reported Cigarette 2019-11-19 2019-11-19 Allen Jacobson ist pack-years 00:00:00 00:00:00 Alcohol intake 2019-11-19 2019-11-19 Ex-drinker [facility] thodist 00:00:00 00:00:00 (finding) Smoking Status Start Date Stop Date Source Former smoker 2019-11-19 00:00:00 2019-11-19 00:00:00 Allen Jacobsonist Medications Ordered Filled Start Stop Current Ordering Indication Dosage Frequency Signature Comments Components Source Medication Medication Date Date Medication? Clinician (SIG) Name Name warfarin 2020- No 5mg QD Take 5 mg Yael krisn (COUMADIN) 6-15 06-15 by mouth Meth breanna 5 MG tablet 09:02: 00:[address] 20 :00 Taking only on Tuesdays. warfarin Yes TAKE 1 & [place] (COUMADIN) 6-15 1/2 TABS 6 Met hodi 5 MG tablet 00:00: DAYS A st 00 WEEK AND 1 TAB ONE DAY A WEEK atorvastati 2019- No 40mg QD Take 40 mg [place] n (LIPITOR) 4-08 04-08 by mouth Met hodi 40 MG 08:51: 00:[address] tablet 26 :00 Default OP ins atorvastati Yes TAKE 1 [place] (LIPITOR) 4-08 TABLET BY Met hodi 40 MG 00:00: MOUTH st tablet 00 EVERY DAY MULTIVITAMI 2019- Yes 1{tbl} Take 1 [place] N ORAL 1-28 tablet by Methodi 10:03: mouth. st 07 calcium 2019- Yes 1200mg Take 1,200 [place] carb-vitami 1-28 mg by Methodi n D3-vit K2 10:03: mouth. st 600 07 mg-1,000 unit-90 mcg tablet warfarin 2020-0 Yes 7.5mg Take 7.5 [place] (COUMADIN) 1-28 mg by Methodi 7.5 MG 10:03: mouth. st tablet 07 Taking for 6 days vitamins 2020-0 Yes Q.5D Take by Naheed geronimo A,C,E-zinc- 11-09 mouth 2 Metho di copper 10:03: (two) st (ICAPS 07 times a AREDS) day. 14,320-226- 200 unit-mg-uni t capsule LISINOPRIL- 2020-0 Yes 1{tbl} QD Take 1 [place] HCTZ - tablet by Methodi 20-12.5 MG 10:03: mouth st COMBO DOSE 07 daily. lansoprazol 2020-0 Yes 30mg QD Take 30 mg [facility] e 11-09 by mouth Methodi (PREVACID) 10:03: daily. st 30 MG 07 capsule psyllium 2020-0 Yes Take by Naheed geronimo husk 11-09 mouth. 2 Methodi (METAMUCIL 10:03: tsp. daily s t ORAL) 07 vit 2020-[address] [place] B2-niacin-B 11-09 under the Met hodi 6-R43-kobyw 10:03: tongue. st nth (B 07 COMPLEX) 1.7-20-2-1. 2 mg/mL liquid cholecalcif 2020-0 Yes 2000U QD Take 2,000 [place] dickson, 1-28 Units by Methodi vitamin D3, 10:03: mouth st (VITAMIN 07 daily. D3) 2,000 unit tablet doxazosin 2020-0 2020- No 4mg QD Take 4 mg [place] (CARDURA) 4 10-28 by mouth Met hodi MG tablet 13:16: 00:[address] 32 :00 doxazosin 2020-0 2020- No TAKE 1 [place] (CARDURA) 4 10-28 TABLET BY Nc thodi MG tablet 00:00: 00:[address] 00 :00 EVERY DAY sodium 2020-0 2020- No Take by [place] citrate 10-2715 mouth. Methodi (CITRA PH 11:17: 00:[address] ORAL) 07 :00 dissolves in water once daily amLODIPine 20192020- No 5mg QD Take 1 [place] (NORVASC) 5 1-07 01-06 tablet (5 Me thodi mg tablet 00:00: 23:59 mg total) st 00 :00 by mouth daily. aspirin Yes 81mg QD Take 1 [facility] (ECOTRIN) 7-02 tablet (81 Meth breanna 81 MG 00:00: mg total) st enteric 00 by mouth coated daily. tablet warfarin 2019- No TAKE 1 & Christen ton (COUMADIN) 4-10-27 1/2 TABS 6 Me thodi 5 MG tablet 00:00: 00:[address] 00 :00 WEEK AND 1 TAB ONE DAY A WEEK atorvastati 2019- No 40mg QD Take 1 Yael kovacs n (LIPITOR) 210-27 tablet (40 M ethodi 40 MG 00:00: 00:00 mg total) st tablet 00 :00 by mouth daily. doxazosin 2017-10 Yes TAKE 1 Christento n (CARDURA) 4 - TABLET BY Met hodi MG tablet 00:00: MOUTH st 00 EVERY DAY metoprolol 2017-10 Yes 25mg QD Take 25 mg [place] succinate 0-25 by mouth Method i XL 00:00: daily. st (TOPROL-XL) 00 25 mg 24 hr tablet cyanocobala Yes 1000ug QD Take 1,[address] min 6-15 mcg by [facility] - (VITAMIN 14:48: mouth Medical B-12) 1000 56 daily. Center MCG tablet calcium Yes 1{tbl} Take [address] carbonate-v 6-15 tablet by Brynn es - itamin D3 14:48: mouth 2 Medic al (CALCIUM- 56 (two) Center TAMIN D) times 500 daily with mg(1,250mg) breakfast -200 unit and per tablet dinner. ascorbic Yes 1000mg QD Take 1,[address] acid, 6-15 mg by [facility] - vitamin C, 14:48: mouth Medica l (VITAMIN C) 56 daily. Center 1000 MG tablet VIT A/VIT Yes Take by [facility] t C/VIT 6-15 mouth. Greg - E/ZINC/KENNETH 14:48: Medica l ER (ICAPS 56 Center AREDS ORAL) omega Yes Take by [facility] 3-dha-epa-f 6-15 mouth. [facility] - suhas oil 14:48: Medical (FISH OIL) 55 [place] 1,000 mg (120 mg-180 mg) Cap loratadine 0 Yes 10mg QD Take [address] (CLARITIN) 6-15 by mouth [facility] - 10 mg 14:48: daily. Medical tablet 55 [place] multivitami 2018-0 Yes 1{tbl} QD Take [address] n per 6-15 tablet by [facility] - tablet 14:48: mouth Medical 55 daily. [place] cholecalcif 0 Yes Take by [facility] dickson, 6-15 mouth. [facility] - vitamin D3, 14:48: Medica l 2,000 unit 55 Center Cap olopatadine 0 Yes Apply to [facility] (PATADAY) 6-15 eye(s). [facility] - 0.2 % Drop 14:47: Medical 14 [place] lansoprazol 20180 Yes 30mg QD Take [address] [facility] e 6-15 by mouth [facility] - (PREVACID) 14:47: daily. Medic al 30 MG 14 [place] capsule warfarin 0 Yes 10mg QD Take [address] (COUMADIN) 6-15 by mouth [facility] - 10 MG 14:47: daily. Medical tablet 14 [place] warfarin 0 Yes 7.5mg QD Take 7.[address] (COUMADIN) 6-15 mg by [facility] - 7.5 MG 14:47: mouth Medical tablet 14 daily. [place] diflupredna Yes Apply to [facility] te 6-15 eye(s). [facility] - (DUREZOL) 14:47: Medical 0.05 % Drop 14 Center bromfenac 0 Yes Apply to [facility] (PROLENSA) 6-15 eye(s). [facility] - 0.07 % Drop 14:47: Medica l 14 [place] polymyxin B 2017-0 Yes 1[drp] [address] sulf-trimet 6-15 [facility] - hoprim 14:47: Medical (POLYTRIM) 14 [place] 10,000 unit- 1 mg/mL Drop atorvastati 2018-0 Yes 20mg QD Take [address] n (LIPITOR) 6-15 by mouth Luke s - 20 MG 14:47: daily. Medical tablet 13 [place] clopidogrel 20180 Yes 75mg QD Take [address] (PLAVIX) 75 6-15 by mouth Luke s - mg tablet 14:47: daily. Medica l 13 [place] doxazosin Yes 4mg QD Take [address] (CARDURA) 4 6-15 by mouth Luke s - MG tablet 14:47: nightly. Medi germania 13 [place] fluticasone Yes 1{spray QD [address] (FLONASE) 6-15 } Nasal [facility] - 50 14:47: route Medical mcg/actuati 13 daily. Center on nasal spray lisinopril Yes 20mg QD Take [address] (PRINIVIL,Z 6-15 by mouth Luke s - ESTRIL) 20 14:47: daily. Medic al MG tablet 13 [place] fluticasone Yes 2{spray 2 sprays [place] (FLONASE) 2-13 } by Each Methodi 50 00:00: Nare route st mcg/actuati 00 as needed. on nasal spray lansoprazol 2015-10- No TAKE 1 Yael ston e -30 15 CAPSULE Methodi (PREVACID) 00:00: 00:00 EVERY DAY s t 30 MG 00 :00 capsule Vital Signs Vital Name Observation Time Observation Value Comments Source Systolic blood 2019-11-19 09:44:00 151 mm[Hg] Christento n Hindu pressure Diastolic blood 2019-11-19 09:44:00 80 mm[Hg] [place] Hindu pressure Heart rate 2019-11-19 09:44:00 60 /min Allen Dillon Body height 2019-11-19 09:44:00 167.6 cm Allen Dillon Body weight 2019-11-19 09:44:00 101.606 kg Allen Dillon BMI 2019-11-19 09:44:00 36.15 kg/m2 Allen Dillon Oxygen saturation in 2019-11-19 09:44:00 100 /min Allen Dillon Arterial blood by Pulse oximetry Respiratory rate 2019-11-09 10:02:00 16 /min Christen Dillon Body temperature 2019-10-28 13:30:00 36.94 Hazel Christen ton Hindu Procedures Procedure Date / Time Performed Performing Clinician Mohsen ortiz PROTHROMBIN TIME WITH INR 2020-06-13 00:00:00 Provider, Historic al [place] [facility] PROTHROMBIN TIME WITH INR 2020-05-31 00:00:00 Provider, Historic al [place] [facility] PROTHROMBIN TIME WITH INR 2020-05-02 00:00:00 Provider, Historic al [place] [facility] PROTHROMBIN TIME WITH INR 2020-04-18 00:00:00 Provider, Historic al [place] [facility] PROTHROMBIN TIME WITH INR 2020-04-04 00:00:00 Provider, Historic al [place] [facility] PROTHROMBIN TIME WITH INR 2020-03-21 00:00:00 Provider, Historic al [place] [facility] PROTHROMBIN TIME WITH INR 2020-03-07 00:00:00 Provider, Historic al [place] [facility] PROTHROMBIN TIME WITH INR 2020-02-22 00:00:00 Provider, Historic al [place] [facility] PROTHROMBIN TIME WITH INR 2020-02-08 00:00:00 Provider, Historic al [place] [facility] PROTHROMBIN TIME WITH INR 2020-01-25 00:00:00 Provider, Historic al [place] [facility] PROTHROMBIN TIME WITH INR 2020-01-11 00:00:00 Provider, Historic al [place] [facility] PROTHROMBIN TIME WITH INR 2020-01-04 00:00:00 Provider, Historic al [place] [facility] PROTHROMBIN TIME WITH INR 2019-12-22 00:00:00 Provider, Historic al [place] [facility] PROTHROMBIN TIME WITH INR 2019-12-08 00:00:00 Provider, Kekeic al Allen Hindu CV STRESS TEST NUCLEAR 2019-11-19 15:36:50 Romain Gao CARDIO NM MYOCARDIAL PERFUSION 2019-11-19 15:36:50 Romain Gao STRESS REST 1 DAY ECG 12-LEAD 2019-11-09 10:17:13 Romain Gao M ethodist PROTHROMBIN TIME WITH INR 2019-11-09 00:00:00 Provider, Sasha Pineda CV SELECTIVE CORONARY 2019-10-28 12:57:44 Taz Meza n Hindu ANGIOGRAPHY PROTHROMBIN TIME WITH INR 2019-10-28 11:56:00 Taz Meza Hindu ESTIMATED GFR 2019-10-28 11:54:00 Taz Meza Meth odist POC PANEL 2019-10-28 11:54:00 Taz Meza Meth odist PROTHROMBIN TIME WITH INR 2019-10-26 00:00:00 Provider, Sasha Pineda CBC WITH PLATELET AND 2019-10-19 12:13:00 Romain Gao DIFFERENTIAL COMPREHENSIVE METABOLIC 2019-10-19 12:13:00 Romain Gao PANEL ECG 12-LEAD 2019-10-19 11:10:40 Romain Gao ethodist PROTHROMBIN TIME WITH INR 2019-10-13 00:00:00 Provider, Historic elidia [place] Hindu PROTHROMBIN TIME WITH INR 2019-09-28 00:00:00 Provider, Historic al Allen Hindu PROTHROMBIN TIME WITH INR 2019-09-16 00:00:00 Provider, Historic elidia [place] Hindu PROTHROMBIN TIME WITH INR 2019-09-01 00:00:00 Provider, Historic al Allen Hindu PROTHROMBIN TIME WITH INR 2019-08-18 00:00:00 Provider, Historic al Allen Hindu PROTHROMBIN TIME WITH INR 2019-08-04 00:00:00 Provider, Historic elidia [place] Hindu PROTHROMBIN TIME WITH INR 2019-07-20 00:00:00 Provider, Historic al Allen Hindu PROTHROMBIN TIME WITH INR 2019-07-06 00:00:00 Provider, Historic al Allen Hindu PROTHROMBIN TIME WITH INR 2019-06-22 00:00:00 Provider, Sasha Pineda Plan of Care Planned Activity Planned Date Details Comments Source Future Scheduled 2020-07-13 INFLUENZA VACCINE Chrisetnto juanpablo Hindu Test 00:00:00 [code = INFLUENZA VACCINE] Future Scheduled 1999 65+ PNEUMOCOCCAL [facility] Hindu Test 00:00:00 VACCINE (1 of 2 - PCV13) [code = 65+ PNEUMOCOCCAL VACCINE (1 of 2 - PCV13)] Future Scheduled 1984 SHINGLES VACCINES (#1) H matias Hindu Test 00:00:00 [code = SHINGLES VACCINES (#1)] Encounters Start End Encounter Admission Attending Care Care Encounter Source Date/Time Date/Time Type Type Clinicians Facility Department ID 2020-05-24 2020-05-24 Office JACQUES Sebastian [id number] 09:07:01 11:32:48 Visit Jacob Cano AMBULATOR [id number] Y [id number] 2019-10-28 2019-10-28 Outpatient SABINO, [facility] [id number] [place] 00:00:00 00:00:00 TAZ [address] Results Test Description Test Time Test Comments Results Result Comments Source Prothrombin time with INR 2020-06-13 00:00:00 Test Item Value Reference Range Interpretation Comme nts INR (test code = 47582-4) 2.50 [facility]G 12 [id number] 16:21:50 Test Item Value Reference Range Interpretation Comments Ventricular rate (test 61 code = 253) Atrial rate (test code 88 = 255) QRSD interval (test 92 code = 260) QT interval (test code 428 = 264) QTC interval (test code 430 = 265) QRS axis 1 (test code = -39 268) T wave axis (test code -20 = 270) EKG impression (test Atrial code = 273) fibrillation-Left axis deviation-Abnormal ECG-In automated comparison with ECG of 19-OCT-2019 11:10,-No significant change was found- [facility] [id number] 13:23:56PATIENT PROFILE: 84 YO M with PMHx of HTN, HLD, Afib and CAD now presenting with worsening angina. P ROCEDURE DETAILS: The right radial artery was located, skin was infiltrated was lidocaine. The artery was accessed under ultrasound guidance using the Seldinger technique, and a 6F glidesheath was inserted. NTG and verapamil were administered intra-arterially via sheath. Heparin was administered intrav enously. A TIG catheter was advanced over a wholey wire and selective coronary angiography was performed, standard views were obtained. 6Fr 3DRC was used for right coronary angiography. At the end of the procedure, the right radial sheath was removed and TR band was applied. DIAGNOSTIC ANGIOGRAM:LMT: Mild (20%) stenosis distally. LAD: Mild (40%) stenosis proximal and distal to prior stent. Patent stent with no ISR in mid LAD LCx: Mild disease in the proximal segment. Non dominant artery. RCA:Mild (40%) disease in the proximal segment. CONCLUSION: - Patent stent in mid LAD. - Mild disease elsewhere. - No significant interval changes since the last cath in 2015. PLAN:- Aggressive medical management and life style modificationsMakoti MethodistPOC panel 2019-10-28 11:56:33 Test Item Value Reference Range Interpretation Comments POC sodium (test code = 137 mmol/L 772-177 1352-0) POC potassium (test code 4.1 mmol/L 3.5-5 = 6298-4) POC chloride (test code = 101 mmol/L 99-109 2069-3) POC CO2 (test code = 28 mmol/L 24-31 01340-6) POC glucose (test code = 116 mg/dL 65-99 H 2339-0) POC BUN (test code = 17 mg/dL 8-24 6299-2) POC creatinine (test code 0.9 mg/dl 0.7-1.2 = 60828-2) POC hematocrit (test code 37 % 41-51 L = 4544-3) POC anion gap (test code 14 mmol/L 8 Ope rator Name: = [id number]) Radha Baltazar DDevice ID: [id number] Lab Interpretation (test Abnormal code = 99088-5) [place] MethodistEstimated [id number] 11:56:33 Test Item Value Reference Range Interpretation Comments Estimated GFR (test 77 mL/min/1.73 m2 Caterg ory Units code = 17151-8) Interpretati onG1 >=90 Normal or highG2 60-89 Mildly hqgkqjfkoG7x 45-59 Mildly to mode rately jgyjuvqlgD1x 30-44 Moderately to severely decreasedG4 15-29 Severely decre asedG5 <15 Kidn ey failureThe eGFR was calculated delores carrera the Chronic Kidney Disease Epidemiology Co llaboration (CKD-EPI) equat ion. Interpretation is based on recommendations of the National Kidney Foundation-Kidn ey Disease Outcomes Qualit y Initiative (NKF-KDOQI) pub lished in 2014. [facility]Comprehensive metabolic [id number] 09:24:00 Test Item Value Reference Interpretation Comments Range Glucose (test code 109 mg/dL 65-99 H Fasting = 2345-7) reference inter do For someone wit hout known diabetes, a glucose valuebe tween 100 and 125 mg/ dL is consistent withprediabetes and should be confi rmed with afollow-up test. BUN (test code = 16 mg/dL 05-06 3094-0) Creatinine (test 0.93 mg/dL 0.7-1.11 For patient s >49 code = 2160-0) years of age, the reference limit for Creatinine is approximately 1 3% higher for peopleidentifie d as -Odalys n. EGFR Non-Afr. 75 > OR = 60 Zambian (test code mL/min/1.73m2 = 2775) EGFR 86 > OR = 60 [place]ian (test code mL/min/1.73m2 = 79066-2) BUN/creatinine NOT APPLICABLE - 22 (calc) ratio (test code = 3097-3) Sodium (test code = 141 mmol/L 003-891 6028-2) Potassium (test 4.1 mmol/L 3.5-5.3 code = 2823-3) Chloride (test code 102 mmol/L 98-110 = 2075-0) CO2 (test code = 31 mmol/L 20-32 2027-) Calcium (test code 9.9 mg/dL 8.6-10.3 = 91977-8) Protein (test code 6.9 g/dL 6.1-8.1 = 2885-2) Albumin, S (test 4.3 g/dL 3.6-5.1 code = 1751-7) Globulin, total 2.6 1.9- 3.7 g/dL (test code = (calc) 16615-3) Albumin/globulin 1.7 1.0- 2.5 ratio (test code = (calc) 1759-0) Total bilirubin 0.7 mg/dL 0.2-1.2 (test code = 1974-2) Alkaline 47 U/L 40-115 phosphatase (test code = 6768-6) AST (test code = 34 U/L 10-35 0-8) ALT (test code = 50 U/L 9-46 H 1742-6) RAC (test code = Performing RAC) Organization Information: Site ID: [id number] Name: [facility] Address: [address] [place] [address] Director: Warren Mcmullen Lab Interpretation Abnormal (test code = 73241-5) [facility] with platelet and [id number] 09:24:00 Test Item Value Reference Range Interpretation Comments WBC (test code = 4.8 3.8- 10.8 6690-2) Thousand/uL RBC (test code = 789-8) 3.56 4.20- 5.80 L Million/uL HGB (test code = 718-7) 12.9 g/dL 13.2-17.1 L HCT (test code = 36.2 % 38.5-50 L 4544-3) MCV (test code = 787-2) 101.7 fL 80-100 H MCH (test code = 785-6) 36.2 pg 27-33 H MCHC (test code = 35.6 g/dL 32-36 786-4) RDW (test code = 788-0) 14.1 % 11-15 Platelet count (test 158 140- 400 code = 777-3) Thousand/uL MPV (test code = 776-5) 11.7 fL 7.5-12.5 Neutrophils, absolute 3029 1,500 - 7,800 (test code = 751-8) cells/uL Lymphocytes, absolute 1022 850- 3,900 (test code = 731-0) cells/uL Monocytes, absolute 518 200- 950 cells/uL (test code = 742-7) Eosinophils, absolute 202 15- 500 cells/uL (test code = 711-2) Basophils, absolute 29 0- 200 cells/uL (test code = 704-7) Neutrophils (test code 63.1 % = 770-8) Lymphocytes (test code 21.3 % = 736-9) Monocytes (test code = 10.8 % 5905-5) Eosinophils (test code 4.2 % = 713-8) Basophils + RC (test 0.6 % code = 706-2) RAC (test code = RAC) Performing Organization Information: Site ID: [id number] [facility]: [facility] Address: [address] [place] [id number] Director: Warren Mcmullen Lab Interpretation Abnormal (test code = 86204-6) Allen Dillon
--- OUTSIDE RECORDS SUMMARY | 2020-06-14 18:38 | XMS REPORT | Summary of Care ---
:1935 Author Organization [facility] [place] [address] Care Team Providers Name Role Phone Mathew Garsia MD Primary Care Provider Reason for Visit Reason Comments Pseudophakia Encounter Details Date Type Department Care Team Description 04/27/2020 Office Visit [facility] Usama Cooley, Pseudophakia Ophthalmology OD [address] [place] [address] [place] [address] [phone] Allergies Active Allergy Reactions Severity Noted Date Comments Cefuroxime 03/27/2018 Opioid Analgesics 07/14/2015 Penicillin G Potassium 01/21/2012 Sulfa Antibiotics 01/21/2012 documented as of this encounter (statuses as of 04/27/2020) Medications Medication Sig Dispensed Refills Start Date End Date Status doxazosin (CARDURA) Take 4 mg by 0 Active 4 MG tablet mouth daily. warfarin (COUMADIN) Take 7.5 mg 0 Active 7.5 MG tablet by mouth daily. Mondays, Friday, Fri, and Friday aspirin 81 MG tablet Take 81 mg by 0 Active mouth daily. lisinopril Take 10 mg by 0 Activ e (PRINIVIL, ZESTRIL) mouth two 10 MG tablet times daily. Multiple Take by 0 Active Vitamins-Minerals mouth. (VITEYES COMPLETE OR) olopatadine HCl 0 Acti ve (PATADAY) 0.2 % ophthalmic solution atorvastatin Take 20 mg by 0 Act joao (LIPITOR) 20 MG mouth daily. tablet Gongjzc-Soorwxxha-Qm Take 1,200 mg 0 Active tamin D (CALCIUM by mouth. 1200+D3 OR) Cholecalciferol Take by 0 Acti ve (VITAMIN D3) 2000 mouth. UNITS CAPS Cyanocobalamin Take by 0 Activ e (VITAMIN B-12 OR) mouth. docusate (COLACE) 50 Take 1 tablet 0 Active MG/5ML liquid by mouth. Nepafenac (ILEVRO) Place 1 Drop 1.7 mL 1 01/21/2018 Active 0.3 % SUSP into the left eye daily. Calcium Take 1 Tab by 0 Active Carb-Cholecalciferol mouth. (CALCIUM-VITAMIN D) 500-200 MG-UNIT per tablet lisinopril-hydrochlo TAKE 1 TABLET 3 05/14/2019 Active rothiazide BY MOUTH (PRINZIDE, TWICE A DAY ZESTORETIC) 20-12.5 MG per tablet Multiple Vitamin Take 1 Tab by 0 Active (MULTI-VITAMINS) mouth. TABS metoprolol Take 25 mg by 0 06/19/2018 Acti ve (TOPROL-XL) 25 MG XL mouth. tablet fluticasone daily as 0 11/25/2016 Active (FLONASE) 50 MCG/ACT needed. nasal spray FERROCITE 324 MG TAKE 1 TABLET 0 04/19/2020 Active TABS BY MOUTH EVERY DAY Calcium-Vitamin Take 1,200 mg 0 Active D-Vitamin K by mouth. (CALCIUM+MENAQ7) 600-1000-90 MG-UNT-MCG TABS lansoprazole Take 30 mg by 0 04/27/20 Dis continued (PREVACID) 30 MG mouth daily. 20 (*Therapy capsule completed) metoprolol Take 50 mg by 0 04/27/20 Disco ntinued (TOPROL-XL) 50 MG XL mouth daily. 20 (*Therapy tablet completed) warfarin (COUMADIN) Take 5 mg by 0 0 Discontinued 5 MG tablet mouth daily. 20 (*The rapy Friday and complet ed) Friday Loratadine 10 MG Take by 0 04/27/20 Dis continued CAPS mouth. 20 (*Therapy completed) cycloSPORINE 1 Drop two 0 04/27/20 Discon tinued (RESTASIS) 0.05 % times daily. 20 (*Therapy ophthalmic emulsion completed) Ascorbic Acid Take by 0 04/27/20 Discon tinued (VITAMIN C OR) mouth. 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 documented as of this encounter Last Filed Vital Signs Not on filedocumented in this encounter Progress Notes Kaylah Cooley, OD - 04/27/2020 9:00 AM CDTOphthalmology Service OPTOMETRY PROGRESS NOTE 84 y.o. male presented to clinic with complaints of decreased vision at distance and near OS>>OD. Pt has been using readers for the first time since his CEIOL since he hasn't been able to see well at all. ASSESSMENT/PLAN: Patient educated on all exam findings below: 1. 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 Refractive error OU - defer at this time - refract at fu 3. 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 Early dry AMD OU - continue on AREDS - OCT Mac after YAG - Return to clinic in PRN or sooner if any increase in flashes/floaters, no resolution of symptoms or sudden loss of vision. ATTESTATIONS: I have reviewed the [facility], SH, FHX, ROS, MEDS, ALLERGIES and TECH NOTE, and have updated the computerized patient record appropriately. The risks, benefits, and alternatives of treatment were discussed with the patient (& family, ifpresent). All questions regarding diagnosis and treatment were answered to the patient's satisfaction. 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
--- OUTSIDE RECORDS SUMMARY | 2020-06-14 18:38 | XMS REPORT | Summary of Care ---
:1935 Author Organization [facility] [place] [address] Care Team Providers Name Role Phone Mathew Garsia MD Primary Care Provider Reason for Visit Reason Comments Post-op Follow-up Encounter Details Date Type Department Care Team Description [facility] -[facility] Follow-up Medicine Ophthalmolo gy OD [address] [place] [address] [facility] [phone] [address] [place], [place] [address] [phone] Allergies Active Allergy Reactions Severity Noted Date Comments Cefuroxime 03/27/2018 Opioid Analgesics 07/14/2015 Penicillin G Potassium 01/21/2012 Sulfa Antibiotics 01/21/2012 documented as of this encounter (statuses as of 05/24/2020) Medications Medication Sig Dispensed Refills Start Date End Date Status doxazosin (CARDURA) 4 MG Take 4 mg by 0 Active tablet mouth daily. warfarin (COUMADIN) 7.5 Take 7.5 mg by 0 Active MG tablet mouth daily. Mondays, Friday, Fri, and Friday [...] 0 Active 20 MG tablet mouth daily. 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 documented as of this encounter Last Filed Vital Signs Not on filedocumented in this encounter Progress Notes Jacob Sebastian, OD - 05/24/2020 10:15 AM CDT S/P YAG OS ASSESSMENT: - IOL centered and clear - capsule open - a/c quite - vitreous debris noted - retina attached and unremarkable PLAN: - answered all questions - f/u as directed - f/u nov, likely YAG OD documented in this encounter Plan of Treatment Date Type Specialty Care Team Description 08/23/2020 Office Visit Ophthalmology Jacob Sebastian, OD [address] [facility] [address] [place], [place] [address] [phone] Health Maintenance Due Date Last Done Comments TETANUS SHOT (ADULT) 1950 ZOSTER VACCINE (1 of 2) 1984 FALL SCREEN 1999 PNEUMOVAX >=65 (PPSV23) 1999 MEDICARE AWV (Initial) 10/13/2013 FLU VACCINE > 6 MONTHS 05/13/2020 documented as of this encounter Results Not on filedocumented in this encounter Visit Diagnoses Diagnosis PCO (posterior capsular opacification), bilateral - Primary After-cataract, unspecified documented in this encounter Insurance Payer Benefit Plan / Subscriber ID Effective Dates Phone Addre ss Type Group [employer] MEDICARE PLAN PPO [id number] 2013-Present [id number] Medicare [place] [address] documented as of this encounter
[2020-06-14] MEDS ORDERED: FAMOTIDINE 20 MG/2 ML VIAL IV ONE (19:51)
[2020-06-14] MEDS ORDERED: NA CHLORIDE 0.9% 1,000 ML ONE (19:51)
[2020-06-14] MEDS ORDERED: METRONIDAZOLE 500mg IVPB 500 MG/100 ML BAG IV ONE (19:51)
[2020-06-14] MEDS ORDERED: CIPROFLOXACIN 400mg IV 400 MG/200 ML BAG IV ONE (19:51)
[2020-06-14 20:17] LABS: Basophils % 0.9 % (0-1.3); Hematocrit 29.7 % (39.6-49.0); Lymphocytes % 16.8 % (15.3-44.8); MPV 8.8 fL (7.6-11.3); RBC Red Blood Cell Count 2.93 M/uL (4.33-5.43)
[2020-06-14 20:48] LABS: ALT/SGPT 41 U/L (12-78); AST/SGOT 30 U/L (15-37); Albumin 3.3 g/dL (3.4-5.0); Alkaline Phosphatase 49 U/L (45-117); BUN Blood Urea Nitrogen 21 mg/dL (7-18); Bicarbonate 27 mmol/L (21-32); Bilirubin Direct 0.1 mg/dL (0-0.2); Bilirubin Total 0.3 mg/dL (0.2-1.0); Glucose Level 94 mg/dL (74-106); Lipase 109 U/L (73-393); Magnesium 1.5 mg/dL (1.8-2.4); NT PRO-BNP 276 pg/mL (<450); Potassium 3.8 mmol/L (3.5-5.1); Protein, Total 6.9 g/dL (6.4-8.2); Sodium Level 137 mmol/L (136-145); Troponin (Emerg Dept Use Only) < 0.02 ng/mL (0.0-0.045)
--- NOTE | 2020-06-14 20:54 | ER ---
Nurse's Notes [facility] Name: Memo Loredo Age: 85 yrs Sex: Male : 1935 Arrival Date: 06/14/2020 Time: 18:34 Bed 2 Private MD: Diagnosis: Gastrointestinal hemorrhage, unspecified-lower;Atrial fibrillation and flutter;Coagulation defect, unspecified-coumadin therapy Presentation: 06/14 18:45 Chief complaint: Patient states: Noticed bright red blood coming from rectum today 1 ll1 hour [employer]. Was just walking to his room. No BM. + weakness and SOB. Coronavirus screen: Client denies travel out of the [place] in the last 14 days. At this time, the client does not indicate any symptoms associated with coronavirus-19. Ebola Screen: Patient denies travel to an Ebola-affected area in the 21 days before illness onset. Initial Sepsis Screen: Does the patient meet any 2 criteria? No. Patient's initial sepsis screen is negative. Risk Assessment: Do you want to hurt yourself or someone else? Patient reports no desire to harm self or others. Onset of symptoms was June 14, 2020. 18:45 Method Of Arrival: Ambulatory ll1 18:45 Acuity: JOANNE 3 ll1 19:30 Initial Sepsis Screen: Does the patient have a suspected source of infection? No. mt2 Patient's initial sepsis screen is negative. Triage Assessment: 19:30 General: Appears in no apparent distress. Behavior is cooperative. Pain: Denies pain. mt2 EENT: No deficits noted. Neuro: No deficits noted. Cardiovascular: Rhythm is atrial fibrillation. Respiratory: No deficits noted. GI: Reports rectal bleeding. : No deficits noted. : Reports prostate ca. Derm: No deficits noted. Musculoskeletal: No deficits noted. Historical: - Allergies: 18:48 PENICILLINS; ll1 18:48 Morphine; ll1 18:48 Sulfa (Sulfonamide Antibiotics); ll1 18:48 Cefuroxime; ll1 - PMHx: 18:48 Atrial Fib; Hypertension; ll1 - PSHx: 18:48 Tonsillectomy; ll1 - Immunization history:: Flu vaccine is up to date. - Social history:: Smoking status: Patient denies any tobacco usage or history of. Patient/guardian denies using alcohol, street drugs. - Family history:: not pertinent. Screenin:30 Abuse screen: Denies threats or abuse. Nutritional screening: No deficits noted. mt2 Tuberculosis screening: No symptoms or risk factors identified. Fall Risk None identified. Assessment: 20:00 Reassessment: Patient and/or family updated on plan of care and expected duration. Pain mt2 level reassessed. Patient is alert, oriented x 3, equal unlabored respirations, skin warm/dry/pink. Patient denies pain at this time. General: Appears in no apparent distress. Behavior is cooperative. 21:00 Reassessment: Patient and/or family updated on plan of care and expected duration. Pain mt2 level reassessed. Patient is alert, oriented x 3, equal unlabored respirations, skin warm/dry/pink. Patient denies pain at this time. General: Appears comfortable, Behavior is cooperative. 22:00 Reassessment: Patient and/or family updated on plan of care and expected duration. Pain mt2 level reassessed. Patient is alert, oriented x 3, equal unlabored respirations, skin warm/dry/pink. Patient denies pain at this time. Vital Signs: 18:45 BP 109 / 66; Pulse 79; Resp 18; Temp 98.2; Pulse Ox 98% ; Weight 102.06 kg; Height 5 ll1 ft. 9 in. (175.26 cm); Pain 0/10; 20:13 BP 122 / 66; Pulse 67; Resp 16; Pulse Ox 96% on R/A; Pain 0/10; mt2 21:00 BP 127 / 67; Pulse 89; Resp 16; Temp 97.6; Pulse Ox 97% ; Pain 0/10; mt2 22:00 BP 122 / 56; Pulse 66; Resp 18; Pulse Ox 100% on R/A; mt2 18:45 Body Mass Index 33.23 (102.06 kg, 175.26 cm) ll1 ED Course: 18:34 Patient arrived in ED. ds1 18:47 Triage completed. ll1 18:48 Arm band placed on Patient placed in an exam room, on a stretcher. ll1 18:56 Armando Parham MD is Attending Physician. josué 19:30 Patient has correct armband on for positive identification. Call light in reach. Side mt2 rails up X 1. Side rails up X2. equipment monitor phototypesetting on. Pulse ox on. NIBP on. 19:54 Amarilys Mcmillan, BILLY is Primary Nurse. mt2 20:00 Inserted saline lock: 20 gauge in right antecubital area, using aseptic technique. oe Blood collected. 20:52 Jeny Garsia MD is Hospitalizing Provider. [facility] 21:00 XRAY Chest (1 view) In Process Unspecified. EDWY 21:37 No provider procedures requiring assistance completed. Patient admitted, IV remains in mt2 place. Administered Medications: 19:55 Drug: Cipro 400 mg Volume: 200 ml; Route: IVPB; Infused Over: 60 mins; Site: right mt2 antecubital; 21:04 Follow up: Response: No adverse reaction; IV Status: Completed infusion 19:55 Drug: Pepcid 20 mg Route: IVP; Site: right antecubital; ct2 21:04 Follow up: Response: No adverse reaction 21:28 Follow up: Response: No adverse reaction [facility] 19:56 Drug: NS 0.9% 1000 ml Route: IV; Rate: 125 ml/hr; Site: right antecubital; ct2 21:03 Follow up: Response: No adverse reaction; IV Status: Completed infusion 20:58 Drug: Flagyl 500 mg Volume: 100 ml; Route: IVPB; Rate: 200 ml/hr; Infused Over: 30 wh mins; Site: right antecubital; 21:46 Follow up: Response: No adverse reaction; IV Status: Completed infusion ct2 21:45 Drug: Magnesium Sulfate 2 grams Route: IVPB; Infused Over: 2 hrs; Site: right mt2 antecubital; 22:15 Follow up: Response: No adverse reaction; IV Status: Infusion continued upon admission mt2 Outcome: 20:54 Decision to Hospitalize by Provider. [facility] 21:37 Condition: stable mt2 21:37 Instructed on the need for admit. 22:14 Admitted to Med/surg accompanied by tech, via wheelchair, room 223, with chart, Report mt2 called to Susie Lobato RN 22:14 Condition: stable 22:14 Instructed on the need for admit. 22:17 Patient left the ED. mt2 Signatures: Dispatcher [employer] EDArmando Rivers MD MD cha Sanford, Demi ds1 Bassem Weir Rudy Dietrich Casper Santos RN RN ll1 Amarilys Mcmillan, RN RN mt2
--- NOTE | 2020-06-14 20:54 | EDPHYS ---
Physician Documentation [facility] Name: Memo Loredo Age: 85 yrs Sex: Male : 1935 Arrival Date: 06/14/2020 Time: 18:34 Bed 2 Private MD: ED Physician Armando Parham HPI: 06/14 20:47 This 85 yrs old Male presents to ER via Ambulatory with complaints of Rectal josué Bleeding. 20:47 The patient presents to the emergency department with bleeding from the rectum/anus, josué that is mild. Onset: The symptoms/episode began/occurred this morning. Context: the patient has no known special context relating to the rectal area complaint(s). Modifying factors: The symptoms are alleviated by nothing, The symptoms are aggravated by bowel movement. Associate signs and symptoms: The patient has no apparent associated signs or symptoms. The patient has not experienced similar symptoms in the past. Historical: - Allergies: 18:48 PENICILLINS; ll1 18:48 Morphine; ll1 18:48 Sulfa (Sulfonamide Antibiotics); ll1 18:48 Cefuroxime; ll1 - PMHx: 18:48 Atrial Fib; Hypertension; ll1 - PSHx: 18:48 Tonsillectomy; ll1 - Immunization history:: Flu vaccine is up to date. - Social history:: Smoking status: Patient denies any tobacco usage or history of. Patient/guardian denies using alcohol, street drugs. - Family history:: not pertinent. ROS: 20:47 Constitutional: Negative for fever, chills, and weight loss, Eyes: Negative for injury, josué pain, redness, and discharge, ENT: Negative for injury, pain, and discharge, Neck: Negative for injury, pain, and swelling, Cardiovascular: Negative for chest pain, palpitations, and edema, Respiratory: Negative for shortness of breath, cough, wheezing, and pleuritic chest pain, Back: Negative for injury and pain, : Negative for injury, bleeding, discharge, and swelling, MS/Extremity: Negative for injury and deformity, Skin: Negative for injury, rash, and discoloration, Neuro: Negative for headache, weakness, numbness, tingling, and seizure, Psych: Negative for depression, anxiety, suicide ideation, homicidal ideation, and hallucinations, Allergy/Immunology: Negative for hives, rash, and allergies, Endocrine: Negative for neck swelling, polydipsia, polyuria, polyphagia, and marked weight changes, Hematologic/Lymphatic: Negative for swollen nodes, abnormal bleeding, and unusual bruising. 20:47 Abdomen/GI: Positive for rectal bleeding. Exam: 20:47 Constitutional: This is a well developed, well nourished patient who is awake, alert, josué and in no acute distress. Head/Face: Normocephalic, atraumatic. Eyes: Pupils equal round and reactive to light, extra-ocular motions intact. Lids and lashes normal. Conjunctiva and sclera are non-icteric and not injected. Cornea within normal limits. Periorbital areas with no swelling, redness, or edema. ENT: Nares patent. No nasal discharge, no septal abnormalities noted. Tympanic membranes are normal and external auditory canals are clear. Oropharynx with no redness, swelling, or masses, exudates, or evidence of obstruction, uvula midline. Mucous membranes moist. Neck: Trachea midline, no thyromegaly or masses palpated, and no cervical lymphadenopathy. Supple, full range of motion without nuchal rigidity, or vertebral point tenderness. No Meningismus. Chest/axilla: Normal chest wall appearance and motion. Nontender with no deformity. No lesions are appreciated. Cardiovascular: Regular rate and rhythm with a normal S1 and S2. No gallops, murmurs, or rubs. Normal PMI, no JVD. No pulse deficits. Respiratory: Lungs have equal breath sounds bilaterally, clear to auscultation and percussion. No rales, rhonchi or wheezes noted. No increased work of breathing, no retractions or nasal flaring. Back: No spinal tenderness. No costovertebral tenderness. Full range of motion. Male : Normal genitalia with no discharge or lesions. MS/ Extremity: Pulses equal, no cyanosis. Neurovascular intact. Full, normal range of motion. Neuro: Awake and alert, GCS 15, oriented to person, place, time, and situation. Cranial nerves II-XII grossly intact. Motor strength 5/5 in all extremities. Sensory grossly intact. Cerebellar exam normal. Normal gait. Psych: Awake, alert, with orientation to person, place and time. Behavior, mood, and affect are within normal limits. 20:47 Abdomen/GI: Inspection: distension, Bowel sounds: normal, Palpation: abdomen is soft and non-tender, Rectal exam: Prostate: normal, rectal tone normal, Stool: guaiac positive, trace positive, no gross blolod, Liver: no appreciated palpable abnormalities, Hernia: not appreciated. 20:52 ECG was reviewed by the Attending Physician. [facility] Vital Signs: 18:45 BP 109 / 66; Pulse 79; Resp 18; Temp 98.2; Pulse Ox 98% ; Weight 102.06 kg; Height 5 ll1 ft. 9 in. (175.26 cm); Pain 0/10; 20:13 BP 122 / 66; Pulse 67; Resp 16; Pulse Ox 96% on R/A; Pain 0/10; mt2 21:00 BP 127 / 67; Pulse 89; Resp 16; Temp 97.6; Pulse Ox 97% ; Pain 0/10; mt2 22:00 BP 122 / 56; Pulse 66; Resp 18; Pulse Ox 100% on R/A; mt2 18:45 Body Mass Index 33.23 (102.06 kg, 175.26 cm) ll1 MDM: 18:56 Patient medically screened. [facility] 20:50 Data reviewed: vital signs, nurses notes, lab test result(s), EKG, radiologic studies, josué CT scan, plain films. 20:51 Differential diagnosis: hemorrhoids, fissure. 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 Interpretation: normal. Test interpretation: by ED physician or midlevel provider: ECG, plain radiologic studies. Counseling: I had a detailed discussion with the patient and/or guardian regarding: the historical points, exam findings, and any diagnostic results supporting the discharge/admit diagnosis, lab results, radiology results, the need for further work-up and treatment in the hospital. 06/14 19:21 Order name: Basic Metabolic Panel; Complete Time: 20:50 [facility] 06/14 19:21 Order name: CBC with Diff; Complete Time: 20:47 [facility] 06/14 19:21 Order name: LFT's; Complete Time: 20:50 [facility] 06/14 19:21 Order name: Magnesium; Complete Time: 20:50 [facility] 06/14 19:21 Order name: NT PRO-BNP; Complete Time: 20:50 [facility] 06/14 19:21 Order name: PT-INR; Complete Time: 20:47 [facility] 06/14 19:21 Order name: Troponin (emerg Dept Use Only); Complete Time: 20:50 [facility] 06/14 19:21 Order name: XRAY Chest (1 view); Complete Time: 22:04 [facility] 06/14 19:21 Order name: Lipase; Complete Time: 20:50 [facility] 06/14 19:21 Order name: Type And Screen; Complete Time: 22:04 [facility] 06/14 19:21 Order name: CT Abd/Pelvis - IV Contrast Only [facility] 06/14 19:21 Order name: EKG; Complete Time: 19:52 [facility] 06/14 19:21 Order name: Cardiac monitoring; Complete Time: 19:57 [facility] 06/14 19:21 Order name: EKG - Nurse/Tech; Complete Time: 19:57 [facility] 06/14 19:21 Order name: IV Saline Lock; Complete Time: 19:57 [facility] 06/14 19:21 Order name: Labs collected and sent; Complete Time: 19:57 [facility] 06/14 19:21 Order name: O2 Per Protocol; Complete Time: 19:58 [facility] 06/14 19:21 Order name: O2 Sat Monitoring; Complete Time: 19:58 [facility] 06/14 19:22 Order name: IV Saline Lock - Large Bore; Complete Time: 19:55 [facility] EC:52 Rate is 67 beats/min. Rhythm is irregularly irregular. QRS Melvin is Normal. NH interval josué is normal. QRS interval is normal. QT interval is normal. No Q waves. T waves are Normal. No ST changes noted. Clinical impression: Atrial Fibrillation. Interpreted by me. Reviewed by me. Administered Medications: 19:55 Drug: Cipro 400 mg Volume: 200 ml; Route: IVPB; Infused Over: 60 mins; Site: right mt2 antecubital; 21:04 Follow up: Response: No adverse reaction; IV Status: Completed infusion 19:55 Drug: Pepcid 20 mg Route: IVP; Site: right antecubital; nc2 21:04 Follow up: Response: No adverse reaction 21:28 Follow up: Response: No adverse reaction [facility] 19:56 Drug: NS 0.9% 1000 ml Route: IV; Rate: 125 ml/hr; Site: right antecubital; nc2 21:03 Follow up: Response: No adverse reaction; IV Status: Completed infusion 20:58 Drug: Flagyl 500 mg Volume: 100 ml; Route: IVPB; Rate: 200 ml/hr; Infused Over: 30 wh mins; Site: right antecubital; 21:46 Follow up: Response: No adverse reaction; IV Status: Completed infusion mt2 21:45 Drug: Magnesium Sulfate 2 grams Route: IVPB; Infused Over: 2 hrs; Site: right mt2 antecubital; 22:15 Follow up: Response: No adverse reaction; IV Status: Infusion continued upon admission mt2 Disposition: 06/14/20 20:54 Hospitalization ordered by Jeny Garsia for Inpatient Admission. Preliminary diagnosis are Gastrointestinal hemorrhage, unspecified - lower, Atrial fibrillation and flutter, Coagulation defect, unspecified - coumadin therapy. - Bed requested for Telemetry/MedSurg (Inpatient). - Status is Inpatient Admission. mt2 - Condition is Stable. - Problem is new. - Symptoms have improved. Signatures: Dispatcher [employer] EDMS Armando Parham MD MD cha Lasagna, Tonya, RN RN tl1 Rudy Dietrich Lynsay, RN RN ll1 Amarilys Mcmillan RN RN mt2 Corrections: (The following items were deleted from the chart) 20:55 20:54 Hospitalization Ordered by A Sun COVARRUBIAS for Inpatient Admission. Preliminary josué diagnosis is Gastrointestinal hemorrhage, unspecified - lower. Bed requested for Telemetry/MedSurg (Inpatient). Status is Inpatient Admission. Condition is Stable. Problem is new. Symptoms have improved. josué 21:32 20:55 06/14/2020 20:54 Hospitalization Ordered by A Sun COVARRUBIAS for Inpatient Admission. tl1 Preliminary diagnosis is Gastrointestinal hemorrhage, unspecified - lower; Atrial fibrillation and flutter; Coagulation defect, unspecified - coumadin therapy. Bed requested for Telemetry/MedSurg (Inpatient). Status is Inpatient Admission. Condition is Stable. Problem is new. Symptoms have improved. josué 22:17 21:32 06/14/2020 20:54 Hospitalization Ordered by A Sun COVARRUBIAS for Inpatient Admission. mt2 Preliminary diagnosis is Gastrointestinal hemorrhage, unspecified - lower; Atrial fibrillation and flutter; Coagulation defect, unspecified - coumadin therapy. Bed requested for Telemetry/MedSurg (Inpatient). Status is Inpatient Admission. Condition is Stable. Problem is new. Symptoms have improved. tl1
[2020-06-14] MEDS ORDERED: Magnesium Sulfate 2gm IVPB 2 G/50 ML BAG IV ONE (21:13)
--- NOTE | 2020-06-14 21:15 | RAD REPORT ---
EXAM DESCRIPTION: Maxime Single View06/14/2020 9:00 pm CLINICAL HISTORY: Abdominal pain COMPARISON: 2015 FINDINGS: The lungs appear clear of acute infiltrate. The heart is normal size IMPRESSION: No acute abnormalities displayed
[2020-06-14] MEDS ORDERED: ONDANSETRON 4 MG/2 ML VIAL IV PRN (23:06)
[2020-06-14] MEDS: NA CHLORIDE 0.9% 1,000 ML IV SCH (23:06)
[2020-06-14 23:25] VITALS: BMI 30.7
[2020-06-14] MEDS ORDERED: ACETAMINOPHEN 325 MG TABLET PO PRN (23:27)
[2020-06-14 23:44] VITALS: O2SAT 97
[2020-06-15] MEDS: METRONIDAZOLE 500mg IVPB 500 MG/100 ML BAG IV SCH ×2 (02:05→08:47)
[2020-06-15] MEDS: NA CHLORIDE 0.9% 1,000 ML IV SCH ×2 (05:11→09:06)
[2020-06-15 05:21] LABS: Absolute Lymphocytes (CBC) 0.9 K/uL (0.7-4.9); Basophils % 0.9 % (0-1.3); Hematocrit 28.2 % (39.6-49.0); Lymphocytes % 16.3 % (15.3-44.8); MPV 8.6 fL (7.6-11.3); RBC Red Blood Cell Count 2.78 M/uL (4.33-5.43)
[2020-06-15 05:22] LABS: Protime INR 2.42
[2020-06-15 05:48] LABS: Potassium 3.6 mmol/L (3.5-5.1)
[2020-06-15 08:41] LABS: Ferritin 136.1 ng/mL (26-388); Folic Acid, (Folate) 7.6 ng/mL (3.1-17.5)
[2020-06-15 08:46] VITALS: BP 150/83; TEMP 97.5
[2020-06-15] MEDS ORDERED: FAMOTIDINE 20 MG/2 ML VIAL IV SCH (09:00)
[2020-06-15] MEDS ORDERED: CIPROFLOXACIN 400mg IV 400 MG/200 ML BAG IV SCH (09:00)
--- NOTE | 2020-06-15 11:08 | RAD REPORT ---
EXAM DESCRIPTION: Abdomen Pelvis W Contrast CLINICAL HISTORY: 85 years Male ABD PAIN COMPARISON: None. TECHNIQUE: Contiguous axial images obtained through the abdomen and pelvis following IV contrast. Re formatted images obtained. This exam was performed according to our department optimization program which includes automated exp osure control, adjustment of the mA and/or kv according to patient size and/or use of iterative recon struction technique. FINDINGS: Minimal scarring/atelectasis in the lower lungs. The liver appears unremarkable. The spleen and pancreas appear unremarkable. No adrenal masses. The kidneys appear unremarkable. No hydronephrosis. The gallbladder is visualized. Atherosclerotic calcifications. No aneurysmal dilatation of the aorta. There is a splenic artery aneu rysm measuring approximately 1.8 cm in maximum diameter. No bowel obstruction. The appendix appears unremarkable. There is colonic diverticulosis most pr onounced in the descending and sigmoid colon. There is mild nonspecific stranding in the perirectal f at. This may be chronic but clinical correlation is recommended to exclude the possibility of proctit is or some other inflammatory process. No significant free pelvic fluid. There are small fat-containing inguinal hernias. There is a small fat-containing umbilical hernia. Degenerative changes in the spine. IMPRESSION: There is mild nonspecific stranding in the perirectal fat. This may be chronic but clini germania correlation is recommended to exclude the possibility of proctitis or some other inflammatory pro cess. 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 Colonic diverticulosis without diverticulitis. Other findings as above. Electronically signed by: Kris Melton MD 06/14/2020 10:18 PM CDT Due to temporary technical issues with the PACS/Fluency reporting system, reports are being signed by the in house radiologist without review as a courtesy to ensure prompt reporting. The interpreting r adiologist is fully responsible for the content of the report.
--- NOTE | 2020-06-16 06:46 | HP ---
Date of Admission: 06/15/2020 Chief Complaint: Rectal bleeding. 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 He felt like his underwear was feeling wet and back of the leg was feeling a little wet, so he went to the bathroom to check on it and noted a small amount of bright red blood. There was no active ongoing bleeding. Denies any constipation problem. Denies any pain in the rectum or any abdominal pain, nausea, vomiting, fever, chills, etc. He does have a history of small amount of blood that he noticed on the tissue paper from time to time after bowel movement, but what happened yesterday was something new, so he came into the emergency room. After he came into the ER, he was admitted to the hospital. Overnight, his condition has remained stable and does not have any new complaints. Medications: List reviewed. Review of Systems: GI: As mentioned above, all other systems reviewed and negative. Allergies: TO SULFA, PENICILLIN, MORPHINE, CEFUROXIME. Past Medical History: Significant for impaired fasting glucose, obstructive sleep apnea, hypertension, hyperlipidemia, coronary artery disease, chronic atrial fibrillation, on chronic anticoagulation therapy, gastroesophageal reflux disease, elevated PSA, thrombocytopenia, and hyponatremia. Past Surgical History: Tonsillectomy, adenoidectomy, coronary artery angioplasty with stent placement in 02/2016. Social History: Prior history of smoking, not at present time. Use of alcohol, negative. Family History: Father had colon cancer and hypertension. Mother, Alzheimer disease and hypertension. Physical Examination: Vital Signs: Temperature 97.9, pulse 89, respiratory rate 16, blood pressure 131/86, oxygen saturation 97%. Height 5 feet 9 inches, weight 208 pounds. General: Awake, alert, oriented, not in distress. HEENT: Head atraumatic, normocephalic. Conjunctivae nonerythematous. Sclerae white. Mouth, no thrush or edema noted. Ears/Nose, no mass, lesion, discharge noted. Neck: Supple. No JVD, lymph nodes, bruit, thyromegaly noted. Lungs: Bilateral good equal air entry. Clear to auscultation. No rhonchi. No rales. Heart: Normal heart sounds, no murmur or gallop. Abdomen: Soft, bowel sounds normal. No guarding, rigidity, tenderness, mass, hepatosplenomegaly, distention, or bruit noted. Extremities: No leg edema. No calf tenderness. Skin: No rash, ulcer, cellulitis. Lymphatics: No lymph node enlargement in neck, supraclavicular, infraclavicular region. Neuro: No focal neurological deficit. Chest: Unremarkable. External Genitalia: Deferred. Rectal: Exam was done which showed normal sphincter tone. No evidence of mass or tenderness in rectum. Rectum was empty. There was no evidence of any stool and no evidence of any blood on the examining finger. Laboratory Data: White count 5.9, hemoglobin 10.5, and platelets 159; this was last night. This morning; white count 5.2, hemoglobin 9.9, and platelets 153. Initial INR was 3, today INR 2.42. Yesterday; sodium 137, potassium 3.8, chloride 101, bicarb 27, BUN 21, creatinine 1.14, and glucose 94. Liver function tests unremarkable. Magnesium 1.5. Chest x-ray was no acute abnormality. CAT scan of the abdomen was also no acute abnormality. Hospital Course: After I evaluated the patient, we did anemia workup and B12 and folic acid level were normal. The patient was discharged to go home in stable condition. I suspect that his bleeding could be a problem and CAT scan of the abdomen did not show any acute changes, except it did show some inflammation in the perirectal fat area, could be due to proctitis. Overall, the patient's condition is stable and he was advised to go ahead and take Anusol rectal suppository as prescribed for 1 week and he was advised to call office to schedule followup appointment for next week. The patient says that about 2 years ago he went to get a repeat colonoscopy with his physician in [place], but he was advised instead of colonoscopy to go ahead and do Cologuard, but insurance will not cover it, so he never had Cologuard test or colonoscopy. We will discuss all the details with him next week when I see him and we will also talk about colonoscopy. Discharge Medications And Instructions: 1. Continue all prior home medications. 2. Anusol-HC rectal suppository 2 times a day for 1 week. Final Diagnoses: 1. Proctitis. 2. Anemia. 3. Hypertension. 4. Hyperlipidemia. 5. Chronic atrial fibrillation. 6. Coronary artery disease. 7. Gastroesophageal reflux disease. 8. Impaired fasting glucose. 9. Chronic anticoagulation therapy. BECCA/LIZBET Voice ID: [id number] MTDD
--- NOTE | 2020-06-16 11:15 | EKG ---
Test Date: 2020-06-14 Test Time: 19:35:50 Surgical Garment Assembler: JOHNATHAN MEASUREMENT RESULTS: Intervals: Rate: 67 VA: QRSD: 92 QT: 428 QTc: 452 Carriere: P: VA: QRS: -46 T: -8 INTERPRETIVE STATEMENTS: Atrial fibrillation Left anterior fascicular block Abnormal ECG Compared to ECG 01/22/2016 09:22:07 Left anterior fascicular block now present Left-axis deviation no longer present ST (T wave) deviation no longer present Electronically Signed On 06-16-20 11:10:42 CDT by Taiwo Burdick
== END 2020-06-15 11:51 | disposition home or self-care (01) ==
LOC: ER 18:34 → ERHOLD 20:57 → 2ND 21:39
PROVIDERS: ADMIT Internal Medicine; ATTEND Internal Medicine
DX: K62.89 Other specified diseases of anus and rectum (principal); K92.2 Gastrointestinal hemorrhage, unspecified; D64.9 Anemia, unspecified; I10 Essential (primary) hypertension; E78.5 Hyperlipidemia, unspecified; I48.20 Chronic atrial fibrillation, unspecified; I48.92 Unspecified atrial flutter; I25.10 Atherosclerotic heart disease of native coronary artery without angina pectoris; K21.9 Gastro-esophageal reflux disease without esophagitis; R73.01 Impaired fasting glucose; G47.33 Obstructive sleep apnea (adult) (pediatric); D69.6 Thrombocytopenia, unspecified; E87.1 Hypo-osmolality and hyponatremia; D68.9 Coagulation defect, unspecified; Z20.828 Contact with and (suspected) exposure to other viral communicable diseases; Z79.01 Long term (current) use of anticoagulants; Z95.5 Presence of coronary angioplasty implant and graft; Z87.891 Personal history of nicotine dependence; Z88.0 Allergy status to penicillin; Z88.1 Allergy status to other antibiotic agents; Z88.2 Allergy status to sulfonamides; Z88.6 Allergy status to analgesic agent; Z82.49 Family history of ischemic heart disease and other diseases of the circulatory system; Z80.0 Family history of malignant neoplasm of digestive organs
CPT/HCPCS: 96365; 96367; 93005 ×2; 85025 ×2; 80048 ×2; 36415; 86900; 83735; 86850; 85610 ×2; 86901; 80076; 84484; 82728; 82746; 82607; 83690; 83540; 83880; 84466; 74177; 71045; 96375; 99285; U0002; Q9967; J3475; J7030 ×2; J0744 ×2; G0378 ×2

== ENCOUNTER 2023-02-14 12:55 | Emergency (ER) | payer OTHER ==
--- OUTSIDE RECORDS SUMMARY | 2023-02-14 13:00 | XMS REPORT | Continuity of Care Document ---
:1935 Author Organization [facility] t Address [address] [place] [address] [address] [place] [address] Care Team Providers Name Role Phone [phone] Primary Care Physician Unavailable SYSTEM, PROVIDER NOT IN Attending Clinician Unavailable Anuradha Hartley LVN Attending Clinician Unavailable Lana Rodriguez MA Attending Clinician Unavailable LEVY TYLER Attending Clinician Unavailable Jose E Gao MD Attending Clinician STEPHANE GALLO Attending Clinician Unavailable Maria L Holliday MD Attending Clinician [phone] Eleuterio Christensen DO Attending Clinician iSl [place] Attending Clinician SIL GILBERT Attending Clinician Unavailable Doctor Unassigned, [place] Attending Clinician Unavailable Jacob Sebastian OD Attending Clinician Bob Kunz MD Attending Clinician Kaylah Cooley OD Attending Clinician TAZ GALLO Attending Clinician Unavailable Nakia Lara OD Attending Clinician KAYLEE BRAMBILA Attending Clinician Unavailable TAZ GALLO Admitting Clinician Unavailable Payers Payer Name Policy Type Policy Number Effective Date Expiration Date S alma AETNA MEDICARE PPO [id number] 2021 00:00:00 MEDICARE PLAN PPO [id number] - AETNA MEDICARE PART B - [id number] MEDICARE Problems Condition Condition Condition Status Onset Resolution Last Treating Co mments Source Name Details Category Date Date Treatment Clinician Date Other Other Disease Active Methodi chest pain chest pain 11-21 00:00: Hospita 00 l History of History of Disease Active M ethodi GI bleed GI bleed 11-21 st 00:00: Hospita 00 l Rectal Rectal Disease Active Methodi bleeding bleeding 07-11 st 00:00: Hospita 00 l Proctitis Proctitis Disease Active Met hodi 07-11 st 00:00: Hospita 00 l Atheroscle Atheroscle Disease Active Overview : Methodi rosis of rosis of 10-[address] nikolski nikolski 00:00: g of this Hospita coronary coronary 00 note l artery of artery of might be nikolski nikolski different heart heart from the without without original. 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 00:00: Hospita 00 l 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 00:00: Hospit a 00 l Essential Essential Disease Active Met hodi hypertensi hypertensi 2-12 st on on 00:00: Hospita 00 l 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 2-12 st emia emia 00:00: Hospita 00 l 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 2 st due to due to 00:00: Hospita excess excess 00 l calories calories without without serious serious comorbidit comorbidit y with y with body mass body mass index index (BMI) of (BMI) of 31.0 to 31.0 to 31.9 in 31.9 in adult adult Combined Combined Disease Active [facility]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 of 03-17 Colleg e age-relate age-relate 00:00: of d cataract d cataract 00 Me dicin of both of both e eyes eyes Anticoagul Anticoagul Disease Active M ethodi ated on ated on 03-17 Coumadin Coumadin 00:00: Hospit a 00 l 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 of 03-17 age-relate age-relate 00:00: Ho spita d cataract d cataract 00 l of both of both eyes eyes Presence Presence Disease Active 2016-10 Metho di of stent of stent 0 st in in 00:00: Hospita coronary coronary 00 l artery in artery in patient patient with with coronary coronary artery artery disease disease Atrial Atrial Disease Active 2015-10 Methodi fibrillati fibrillati 1-11 st on on 00:00: Hospita [I48.91] [I48.91] 00 l 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 0-10 st on, on, 00:00: Hospita bilateral bilateral 00 l Nuclear Nuclear Disease Active 2015-10 Methodi senile senile 0-10 st cataract cataract 00:00: Hospit a of both of both 00 l eyes eyes Pseudoexfo Pseudoexfo Disease Active 2015-10 M ethodi liation liation 0-10 st (PXF) of (PXF) of 00:00: Hospit a lens lens 00 l capsule capsule Reflux Reflux Disease Active Methodi esophagiti esophagiti 9-12 st s s 00:00: Hospita 00 l Memory Memory Disease Active [facility] loss loss 4-10 College 00:00: of 00 Medicin e Memory Memory Disease Active Methodi loss loss 4-10 st 00:00: Hospita 00 l Allergies, Adverse Reactions, Alerts Allergy Allergy Status Severity Reaction(s) Onset Inactive Treating Comm ents Source Name Type Date Date Clinician Sulfa Propensi Active Unknown - Patient Univ ers (Sulfona ty to See comments 9-11 states he ity of mide adverse 00:00: "Turns [place] Antibiot reaction 00 blue" Medica l ics) s Branch Cefuroxi Propensi Active Swelling 2020-0 Eyes Univ ers me ty to 9-11 swell ity of adverse 00:00: [place] reaction 00 Medical s Branch Morphine Propensi Active Other - See 2020-0 Pain in Univers ty to comments 9-11 arm and ity of adverse 00:00: gets red [place] reaction 00 Medical s Branch CEFUROXI DRUG Active Swelling 2020-0 Univer s ME INGREDI 9-11 ity of 00:00: [place] 00 Medical Branch MORPHINE DRUG Active Other-Cmnt 2020-0 Univ ers INGREDI 9-11 ity of 00:00: [place] 00 Medical Branch Penicill Propensi Active Rash 2020-0 Univer s in ty to 9-11 ity of adverse 00:00: [place] reaction 00 Medical s Branch PENICILL DRUG Active Rash 2020-0 Univers IN INGREDI 9 ity of 00:00: [place] 00 Medical Branch SULFA Drug Active Unknown-Cmnt 2020-0 Univ ers (SULFONA Class 9- ity of MIDE 00:00: [place] ANTIBIOT 00 Medical ICS) Branch CEFUROXI DRUG Active Swelling 2019-0 MD ME INGREDI 3-21 Anderso 00:00: n 00 CEFUROXI DRUG Active Swelling 2019-0 MD ME INGREDI 3-21 Anderso 00:00: n 00 CEFUROXI DRUG Active Swelling 2019-0 MD ME INGREDI 3-21 Anderso 00:00: n 00 CEFUROXI DRUG Active Swelling 2019-0 MD ME INGREDI 3-21 Anderso 00:00: n 00 CEFUROXI DRUG Active Swelling 2019-0 MD ME INGREDI 3-21 Anderso 00:00: n 00 CEFUROXI DRUG Active Swelling 2019-0 MD ME INGREDI 3-21 Anderso 00:00: n 00 CEFUROXI DRUG Active Swelling 2019-0 MD ME INGREDI 3-21 Anderso 00:00: n 00 CEFUROXI DRUG Active Swelling 2019-0 MD ME INGREDI 3-21 Anderso 00:00: n 00 Cefuroxi Propensi Active 2018-[address] [facility] 6[facility]15 [facility]: Medical reaction 00 Center s Cefuroxi Propensi Active 2018-0 Method i me ty to 6-15 st adverse 00:00: Hospita reaction 00 l s to drug Morphine Propensi Active 2016-0 [facility] adverse 00:[facility]: his arm. Medical reaction 00 Center s Penicill Propensi Active Rash 2016-[address] [facility] ins ty to 04-25 [facility] adverse 00:[facility]: Medical reaction 00 Center s Sulfa Propensi Active Shortness Of 2016-[address] (Sulfona ty to Breath 04-25 [facility] mide adverse 00:00: Medical Antibiot reaction 00 Center ics) s SULFA Drug Active High Sob 2016-0 MD (SULFONA Class 7-14 Anderso MIDE 00:00: n ANTIBIOT 00 ICS) PENICILL Drug Active Low Rash 2016-0 MD INS Class 7-14 Anderso 00:00: n 00 MORPHINE DRUG Active High 2016-0 MD INGREDI 7-14 Anderso 00:00: n 00 SULFA Drug Active High Sob 2016-0 MD (SULFONA Class 7-14 Anderso MIDE 00:00: n ANTIBIOT 00 ICS) PENICILL Drug Active Low Rash 2016-0 MD INS Class 7-14 Anderso 00:00: n 00 MORPHINE DRUG Active High 2016-0 MD INGREDI 7-14 Anderso 00:00: n 00 SULFA Drug Active High Sob 2016-0 MD (SULFONA Class 7-14 Anderso MIDE 00:00: n ANTIBIOT 00 ICS) PENICILL Drug Active Low Rash 2016-0 MD INS Class 7-14 Anderso 00:00: n 00 MORPHINE DRUG Active High 2016-0 MD INGREDI 7-14 Anderso 00:00: n 00 SULFA Drug Active High Sob 2016-0 MD (SULFONA Class 7-14 Anderso MIDE 00:00: n ANTIBIOT 00 ICS) PENICILL Drug Active Low Rash 2016-0 MD INS Class 7-14 Anderso 00:00: n 00 MORPHINE DRUG Active High 2016-0 MD INGREDI 7-14 Anderso 00:00: n 00 SULFA Drug Active High Sob 2016-0 MD (SULFONA Class 7-14 Anderso MIDE 00:00: n ANTIBIOT 00 ICS) PENICILL Drug Active Low Rash 2016-0 MD INS Class 7-14 Anderso 00:00: n 00 MORPHINE DRUG Active High 2016-0 MD INGREDI 7-14 Anderso 00:00: n 00 SULFA Drug Active High Sob 2016-0 MD (SULFONA Class 7-14 Anderso MIDE 00:00: n ANTIBIOT 00 ICS) PENICILL Drug Active Low Rash 2016-0 MD INS Class 7-14 Anderso 00:00: n 00 MORPHINE DRUG Active High 2016-0 MD INGREDI 7-14 Anderso 00:00: n 00 SULFA Drug Active High Sob 2016-0 MD (SULFONA Class 7-14 Anderso MIDE 00:00: n ANTIBIOT 00 ICS) PENICILL Drug Active Low Rash 2016-0 MD INS Class 7-14 Anderso 00:00: n 00 MORPHINE DRUG Active High 2016-0 MD INGREDI 7-14 Anderso 00:00: n 00 SULFA Drug Active High Sob 2016-0 MD (SULFONA Class 7-14 Anderso MIDE 00:00: n ANTIBIOT 00 ICS) PENICILL Drug Active Low Rash 2016-0 MD INS Class 7-14 Anderso 00:00: n 00 Morphine Propensi Active Redness Metho di ty to 04-[address] adverse 00:00: his Hospita reaction 00 arm.Redne l s to ss going drug up his arm.Redne ss going up his arm. Penicill Propensi Active Rash Method i ins ty to 04-25 st adverse 00:00: Hospita reaction 00 l s to drug Sulfa Propensi Active Shortness Of Me thodi (Sulfona ty to Breath 04-25 st mide adverse 00:00: Hospita Antibiot reaction 00 l ics) s to drug MORPHINE DRUG Active High 2015-0 MD INGREDI 7-14 Anderso 00:00: n 00 Opioid Propensi Active 2014-10 [facility] Analgesi ty to 0-02 [place] cs adverse 00:00: of reaction 00 Medicin s to e drug Opioids Propensi Active 2014-10 Methodi - ty to 0-02 st Morphine adverse 00:00: Hospita Analogue reaction 00 l s s to drug Penicill Propensi Active [facility] in G ty to 4-10 [place] Potassiu adverse 00:00: of m reaction 00 Medicin s to e drug Sulfa Propensi Active [facility] Antibiot ty to 4-10 [place] ics adverse 00:00: of reaction 00 Medicin s to e drug Sulfasal Propensi Active Method i azine ty to 4-10 st adverse 00:00: Hospita reaction 00 l s to drug NO KNOWN Drug Active Univers ALLERGIE Class ity of S [facility] Family History Family Member Diagnosis Comments Start Date Stop Date Source Natural [facility] father Colon polyps Method t [facility] Social History Social Habit Start Date Stop Date Quantity Comments Source Exposure to Not sure University SARS-CoV-2 (event) [facility] Gender identity [facility] Sexual orientation [facility] Alcohol intake 2020-11-25 2020-11-25 Ex-drinker [facility] 00:00:00 00:00:00 (finding) Hospital History of Social 2020-11-25 2020-11-[address] function 00:00:00 00:00:00 Hospital Tobacco use and 2020-05-24 2020-05-24 Never used [facility] llege of exposure 00:00:00 00:00:00 Medicine Cigarettes smoked 2019-10-28 2019-10-[address] current (pack per 00:00:00 00:00:00 Hospita l day) - Reported Cigarette 2019-10-28 2019-10-28 [facility] pack-years 00:00:00 00:00:00 Hospital History of tobacco 1973-10-13 Smoker [facility] College of use 00:00:00 Medicine Sex [birth year] [facility] 00:00:00 00:00:00 Hospital Smoking Status Start Date Stop Date Source Unknown if ever smoked [facility]it y [facility] Former smoker 2020-05-24 00:00:00 2020-05-24 00:00:00 [facility] of Medicine Medications Ordered Filled Start Stop Current Ordering Indication Dosage Frequency Signature Comments Components Source Medication Medication Date Date Medication? Clinician (SIG) Name Name warfarin Yes TAKE 1 & Metho di (COUMADIN) 2-03 1/[address] 5 MG tablet 00:00: DAYS A Hosp josé 00 WEEK AND 1 l TAB ONE DAY A WEEK isosorbide Yes TAKE 1 Metho di mononitrate 1-[address] (IMDUR) 30 00:00: MOUTH Hospit a MG 24 hr 00 EVERY DAY l tablet IN THE MORNING atorvastati Yes TAKE 1 Meth breanna n (LIPITOR) 9-[address] 40 mg 00:00: MOUTH Hospita tablet 00 EVERY DAY l enoxaparin Yes Patient to M ethodi (Lovenox) [address] 100 mg/mL 00:00: 0.95mg/ml Hos maurice syringe 00 SQ in l abdomen twice a day or as directed by MD office warfarin Yes TAKE ONE Metho di (COUMADIN) -[address] 5 MG tablet 00:00: HALF Hospit a 00 TABLET l DAILY OR DIRECTED BY MD OFFICE isosorbide 2020-10- No TAKE 1 Meth breanna mononitrate 2-21 -[address] (IMDUR) 30 00:00: 00:00 MOUTH Hospi ta MG 24 hr 00 :00 EVERY l tablet MORNING atorvastati 2021- No TAKE 1 Met hodi n (LIPITOR) 6-25 09-[address] 40 mg 00:00: 00:00 MOUTH Hospita tablet 00 :00 EVERY DAY l warfarin 2021- No Take one Meth breanna (COUMADIN) 5-24 - and one st 5 MG tablet 00:00: 00:00 half Hospi ta 00 :00 tablet l daily or as directed by MD office doxazosin Yes TAKE 1 Method i (CARDURA) 4 4-[address] MG tablet 00:00: MOUTH Hospita 00 EVERY DAY l MULTIVITAMI Yes 1{tbl} Take 1 Me thodi N ORAL 2-[address] 09:35: mouth. Hospita 02 l calcium Yes 1200mg Take 1,200 Me thodi carb-vitami 2-[address] n D3-vit K2 09:35: mouth. Hosp josé 600 02 l mg-1,000 unit-90 mcg tablet warfarin Yes 7.5mg Take 7.5 Meth breanna (COUMADIN) 2-[address] 7.5 MG 09:35: mouth. Hospita tablet 02 Taking for l 6 days vitamins Yes Q.5D Take by Method i A,C,E-zinc- 2-[address] copper 09:35: (two) Hospita (ICAPS 02 times a l AREDS) day. 14,320-226- 200 unit-mg-uni t capsule LISINOPRIL- Yes 1{tbl} Q.5D Take 1 Me thodi HCTZ 2-[address] 20-12.5 MG 09:35: mouth 2 Hosp josé COMBO DOSE 02 (two) l times a day. lansoprazol 0 Yes 30mg QD Take 30 mg Methodi e 2-[address] (PREVACID) 09:35: daily. Hospi ta 30 MG 02 l capsule psyllium Yes Take by Method i husk 2-[address] (METAMUCIL 09:35: tsp. daily H ospita ORAL) [address] Methodi B2-niacin-B 11-[address] [id number] 09:35: tongue. Hos maurice nth (B 02 l COMPLEX) 1.7-20-2-1. 2 mg/mL liquid cholecalcif Yes 2000U QD Take 2,000 Methodi dickson, 2-[address] vitamin D3, 09:35: mouth Hospi ta (VITAMIN 02 daily. l D3) 2,000 unit tablet amLODIPine 2019-10 Yes TAKE 1 Metho di (NORVASC) 5 2-[address] mg tablet 00:00: MOUTH Hospita 00 EVERY DAY l MULTIVITAMI 2019-0 Yes 1{tbl} Take 1 Un karlie N ORAL 9-11 tablet by ity of 15:58: mouth. [address] MULTIVITAMI 2019-0 Yes 1{tbl} Take 1 Un karlie N ORAL 9-11 tablet by ity of 15:58: mouth. [address] MULTIVITAMI 2019-0 Yes 1{tbl} Take 1 Un karlie N ORAL 9-11 tablet by ity of 15:58: mouth. [address] MULTIVITAMI 2019-0 Yes 1{tbl} Take 1 Un karlie N ORAL 9-11 tablet by ity of 15:58: mouth. [address] Cholecalcif 0 Yes Take by Uni vers dickson, 06-23 mouth. ity of Vitamin D3, 15:57: [place] (VITAMIN 16 Medical D3) 50 mcg Branch (2,000 unit) tablet docusate 0 Yes 250mg Take 250 Univ ers sodium 9-11 mg by ity of (STOOL 15:57: mouth [place] SOFTENER) 16 daily. Medical 250 mg Branch capsule cyanocobala 2020-[address] Uni vers min, - 5,000 mcg ity of vitamin 15:57: under the [place] B-12, 16 tongue. Medical (VITAMIN Branch B-12) 5,000 mcg Subl Cholecalcif 2020-0 Yes Take by Uni vers dickson, 9-11 mouth. ity of Vitamin D3, 15:57: [place] (VITAMIN 16 Medical D3) 50 mcg Branch (2,000 unit) tablet docusate 2020-0 Yes 250mg Take 250 Univ ers sodium 9-11 mg by ity of (STOOL 15:57: mouth [place] SOFTENER) 16 daily. Medical 250 mg Branch capsule cyanocobala 2020-[address] Uni vers min, 06-23 5,000 mcg ity of vitamin 15:57: under the [place] B-12, 16 tongue. Medical (VITAMIN Branch B-12) 5,000 mcg Subl Cholecalcif 2020-0 Yes Take by Uni vers dickson, -11 mouth. ity of Vitamin D3, 15:57: [place] (VITAMIN 16 Medical D3) 50 mcg Branch (2,000 unit) tablet docusate 2020-0 Yes 250mg Take 250 Univ ers sodium 9-11 mg by ity of (STOOL 15:57: mouth [place] SOFTENER) 16 daily. Medical 250 mg Branch capsule cyanocobala 2020-[address] Uni vers min, 06-23 5,000 mcg ity of vitamin 15:57: under the [place] B-12, 16 tongue. Medical (VITAMIN Branch B-12) 5,000 mcg Subl Cholecalcif 2020-0 Yes Take by Uni vers dickson, 9-11 mouth. ity of Vitamin D3, 15:57: [place] (VITAMIN 16 Medical D3) 50 mcg Branch (2,000 unit) tablet docusate 2020-0 Yes 250mg Take 250 Univ ers sodium 9-11 mg by ity of (STOOL 15:57: mouth [place] SOFTENER) 16 daily. Medical 250 mg Branch capsule cyanocobala 2020-[address] Uni vers min, - 5,000 mcg ity of vitamin 15:57: under the [place] B-12, 16 tongue. Medical (VITAMIN Branch B-12) 5,000 mcg Subl lisinopriL 2020-0 Yes 20mg Take 20 mg U nivers 20 mg 9-11 by mouth. ity of tablet 15:44: [address] aspirin 81 2020-0 Yes 81mg Take 81 mg U nivers mg EC 9-11 by mouth. ity of tablet 15:44: [address] doxazosin 4 2020-0 Yes 4mg Take 4 mg U nivers mg tablet 9-11 by mouth. ity o f 15:44: [address] fluticasone 2020-0 Yes 1{spray Use 1 Un karlie propionate 9-11 } [place] in ity o f 50 15:44: each [place] mcg/actuati 24 nostril. Medi germania on nasal Branch spray lisinopriL 2020-0 Yes 20mg Take 20 mg U nivers 20 mg 9-11 by mouth. ity of tablet 15:44: [address] aspirin 81 2020-0 Yes 81mg Take 81 mg U nivers mg EC 9-11 by mouth. ity of tablet 15:44: [address] doxazosin 4 2020-0 Yes 4mg Take 4 mg U nivers mg tablet 9-11 by mouth. ity o f 15:44: [address] fluticasone 2020-0 Yes 1{spray Use 1 Un karlie propionate 9-11 } [place] in ity o f 50 15:44: each [place] mcg/actuati 24 nostril. Medi germania on nasal Branch spray lisinopriL 2020-0 Yes 20mg Take 20 mg U nivers 20 mg 9-11 by mouth. ity of tablet 15:44: [address] aspirin 81 2020-0 Yes 81mg Take 81 mg U nivers mg EC 9-11 by mouth. ity of tablet 15:44: [address] doxazosin 4 2020-0 Yes 4mg Take 4 mg U nivers mg tablet 9-11 by mouth. ity o f 15:44: [address] fluticasone 2020-0 Yes 1{spray Use 1 Un karlie propionate 9-11 } [place] in ity o f 50 15:44: each [place] mcg/actuati 24 nostril. Medi germania on nasal Branch spray lisinopriL 2020-0 Yes 20mg Take 20 mg U nivers 20 mg 9-11 by mouth. ity of tablet 15:44: [place] 24 Medical Branch aspirin 81 2020-0 Yes 81mg Take 81 mg U nivers mg EC 9-11 by mouth. ity of tablet 15:44: [address] Branch doxazosin 4 2020-0 Yes 4mg Take 4 mg U nivers mg tablet 9-11 by mouth. ity o f 15:44: [address] fluticasone 2020-0 Yes 1{spray Use 1 Un karlie propionate 9-11 } [place] in ity o f 50 15:44: each [place] mcg/actuati 24 nostril. Medi germania on nasal Branch spray warfarin 2020-0 Yes 7.5mg Take 7.5 Univ ers 7.5 mg 9-11 mg by ity of tablet 15:42: mouth. [address] warfarin 2020-0 Yes 7.5mg Take 7.5 Univ ers 7.5 mg 9-11 mg by ity of tablet 15:42: mouth. [address] warfarin 2020-0 Yes 7.5mg Take 7.5 Univ ers 7.5 mg 9-11 mg by ity of tablet 15:42: mouth. [address] Branch warfarin 2020-0 Yes 7.5mg Take 7.5 Univ ers 7.5 mg 9-11 mg by ity of tablet 15:42: mouth. [address] Branch metoprolol 2020-0 Yes 12.5mg Take 12.5 Univers succinate 8-25 mg by ity of XL 25 mg 24 00:00: mouth [place] hr tablet 00 daily. Medical Branch metoprolol 2020-0 Yes 12.5mg Take 12.5 Univers succinate 8-25 mg by ity of XL 25 mg 24 00:00: mouth [place] hr tablet 00 daily. Medical Branch metoprolol 2020-0 Yes 12.5mg Take 12.5 Univers succinate 8-25 mg by ity of XL 25 mg 24 00:00: mouth [place] hr tablet 00 daily. [facility] Branch metoprolol 2020-0 Yes 12.5mg Take 12.5 Univers succinate 8-25 mg by ity of XL 25 mg 24 00:00: mouth [place] hr tablet 00 daily. Medical Branch tamsulosin 2020-0 Yes .4mg QD Take 0.4 Met hodi (FLOMAX) 8-[address] 0.4 mg 00:00: mouth Hospita capsule 00 daily. l tamsulosin 2020-0 Yes .4mg Take 0.4 Uni vers 0.4 mg 24 8-07 mg by ity of hr capsule 00:00: mouth. [place] [address] Medical Branch tamsulosin 2020-0 Yes .4mg Take 0.4 Uni vers 0.4 mg 24 8-07 mg by ity of hr capsule 00:00: mouth. [place] [address] Medical Branch tamsulosin 2020-0 Yes .4mg Take 0.4 Uni vers 0.4 mg 24 8-07 mg by ity of hr capsule 00:00: mouth. [place] [address] Medical Branch tamsulosin 2020-0 Yes .4mg Take 0.4 Uni vers 0.4 mg 24 8-07 mg by ity of hr capsule 00:00: mouth. [place] [address] Medical Branch olopatadine 2020-0 Yes [facility] HCl 7-28 [place] ([facility]) 21:34: of 0.2 % 51 Medicin ophthalmic e solution atorvastati 2020-0 Yes 20mg Take 20 mg [facility] n (LIPITOR) 7-28 by mouth Beto ege 20 MG 21:34: daily. of tablet 51 Medicin e Calcium-Mag 2020-0 Yes 1200mg Take 1,200 [facility] nesium-Leanna 7-28 mg by [place] min D 21:34: mouth. of (CALCIUM 51 Medicin 1200+D3 OR) e Cholecalcif 2020-0 Yes Take by [facility] dickson 7-28 mouth. [place] (VITAMIN 21:34: of D3) 2000 51 Medicin UNITS CAPS e Cyanocobala 2020-0 Yes Take by [place] kamilla min 7-28 mouth. [place] (VITAMIN 21:34: of B-12 OR) 51 Medicin e docusate 2020-0 Yes 1{tbl} Take 1 [facility] (COLACE) 50 7-28 tablet by Col lege MG/5ML 21:34: mouth. of liquid 51 Medicin e Calcium 2020-0 Yes 1{tbl} Take 1 Tab Ba ylor Carb-Cholec 7-28 by mouth. Col lege alciferol 21:34: of (CALCIUM- 51 Medicin TAMIN D) e 500-200 MG-UNIT per tablet Multiple 2020-0 Yes 1{tbl} Take 1 Tab B aylor Vitamin 7-28 by mouth. [place] (MULTI-LEANNA 21:34: of MINS) TABS 51 Medicin e Calcium-Vit 2020-0 Yes 1200mg Take 1,200 [place] marie 7-28 mg by [place] D-Vitamin K 21:34: mouth. of (CALCIUM+ME 51 Medicin NAQ7) e 600-1000-90 MG-UNT-MCG TABS olopatadine 2020-0 Yes [facility] HCl 7-28 [place] ([facility]) 21:34: of 0.2 % 51 Medicin ophthalmic e solution atorvastati 2020-0 Yes 20mg Take 20 mg [facility] n (LIPITOR) 7-28 by mouth Beto ege 20 MG 21:34: daily. of tablet 51 Medicin e Calcium-Mag 2020-0 Yes 1200mg Take 1,200 [facility] nesium-Leanna 7-28 mg by [place] min D 21:34: mouth. of (CALCIUM 51 Medicin 1200+D3 OR) e Cholecalcif 2020-0 Yes Take by [place] kamilla dickson 7-28 mouth. [place] (VITAMIN 21:34: of D3) 2000 51 Medicin UNITS CAPS e Cyanocobala 2020-0 Yes Take by [place] kamilla min 7-28 mouth. [place] (VITAMIN 21:34: of B-12 OR) 51 Medicin e docusate 2020-0 Yes 1{tbl} Take 1 [facility] (COLACE) 50 7-28 tablet by Col lege MG/5ML 21:34: mouth. of liquid 51 Medicin e Calcium 2020-0 Yes 1{tbl} Take 1 Tab Ba ylor Carb-Cholec 7-28 by mouth. Col lege alciferol 21:34: of (CALCIUM- 51 Medicin TAMIN D) e 500-200 MG-UNIT per tablet Multiple 2020-0 Yes 1{tbl} Take 1 Tab B aylor Vitamin 7-28 by mouth. [place] (MULTI-LEANNA 21:34: of MINS) TABS 51 Medicin e Calcium-Vit 2020-0 Yes 1200mg Take 1,200 [facility] marie 7-28 mg by [place] D-Vitamin K 21:34: mouth. of (CALCIUM+ME 51 Medicin NAQ7) e 600-1000-90 MG-UNT-MCG TABS Calcium-Vit 2020-0 Yes 1200mg Take 1,200 [place] marie 7-16 mg by [place] D-Vitamin K 13:29: mouth. of (CALCIUM+ME 01 Medicin NAQ7) e 600-1000-90 MG-UNT-MCG TABS lansoprazol 2020-0 2020- No 30mg Take 30 mg [facility] e 04-27 by mouth [place] (PREVACID) 13:29: 00:00 daily. of 30 MG 01 :00 Medicin capsule e metoprolol 2020- No 50mg Take 50 mg [facility] (TOPROL-XL) 04-27 by mouth Col lege 50 MG XL 13:29: 00:00 daily. of tablet 01 :00 Medicin e warfarin 2020- No 5mg Take 5 mg [place] kamilla (COUMADIN) 04-27 by mouth Beto ege 5 MG tablet 13:29: 00:00 daily. of 01 :00 Friday Medicin and Manuel e Loratadine 2020- No Take by [place] kamilla 10 MG CAPS 04-27 mouth. Colleg e 13:29: 00:00 of 01 :00 Medicin e cycloSPORIN 0 2020- No 1[drp] 1 Drop two Norman E 04-27 times [place] (RESTASIS) 13:29: 00:00 daily. of 0.05 % 01 :00 Medicin ophthalmic e emulsion Ascorbic 2020- No Take by [facility] Acid 04-27 mouth. [place] (VITAMIN C 13:29: 00:00 of OR) 01 :00 Medicin e FERROCITE 2020-0 Yes 1{tbl} Take 1 Univ ers 324 mg (106 7-08 tablet by ity of mg iron) 00:00: mouth [place] Tab 00 daily. Medical Branch FERROCITE 2020-0 Yes 1{tbl} Take 1 Univ ers 324 mg (106 7-08 tablet by ity of mg iron) 00:00: mouth [place] Tab 00 daily. Medical [facility] FERROCITE 2020-0 Yes 1{tbl} Take 1 Univ ers 324 mg (106 7-08 tablet by ity of mg iron) 00:00: mouth [place] Tab 00 daily. Medical Branch FERROCITE 2020-0 Yes 1{tbl} Take 1 Univ ers 324 mg (106 7-08 tablet by ity of mg iron) 00:00: mouth [place] Tab 00 daily. Medical Branch FERROCITE 2020-0 Yes TAKE 1 [facility] 324 MG TABS 7-08 TABLET BY Col lege 00:00: MOUTH of 00 EVERY DAY Medicin e FERROCITE 2020-0 Yes TAKE 1 [facility] 324 MG TABS 7-08 TABLET BY Col lege 00:00: MOUTH of 00 EVERY DAY Medicin e FERROCITE 2020-0 Yes TAKE 1 [facility] 324 MG TABS 7-08 TABLET BY Col lege 00:00: MOUTH of 00 EVERY DAY Medicin e Ferrocite 2020-0 Yes 1{tbl} QD Take 1 [facility] breanna 324 mg (106 7-[address] mg iron) 00:00: mouth [facility]osp[facility] tablet 00 daily. l amLODIPine 2020-0 Yes 5mg Take 5 mg Un karlie 5 mg tablet 6-14 by mouth ity of 00:00: daily. [place] [facility] amLODIPine 2020-0 Yes 5mg Take 5 mg Un karlie 5 mg tablet 6-14 by mouth ity of 00:00: daily. [place] [facility] amLODIPine 2020-0 Yes 5mg Take 5 mg Un karlie 5 mg tablet 6-14 by mouth ity of 00:00: daily. [place] [facility] amLODIPine 2020-0 Yes 5mg Take 5 mg Un karlie 5 mg tablet 6-14 by mouth ity of 00:00: daily. [place] [facility] atorvastati 2020-0 Yes 40mg 40 mg. Univ ers n 40 mg 4-08 ity of tablet 00:00: [address] atorvastati 2020-0 Yes 40mg 40 mg. Univ ers n 40 mg 4-08 ity of tablet 00:00: [address] atorvastati 2020-0 Yes 40mg 40 mg. Univ ers n 40 mg 4-08 ity of tablet 00:00: [address] atorvastati 2020-0 Yes 40mg 40 mg. Univ ers n 40 mg 4-08 ity of tablet 00:00: [address] Branch [place]-3 2019-0 2019- No Take by [place] Fatty Acids 06-09 mouth four C ollege (OMEGA-3 15:33: 00:00 times of FISH OIL) 00 :00 daily. Medicin 1200 MG e CAPS clopidogrel 2018-0 2019- No 75mg Take 75 mg [facility] (PLAVIX) 75 06-09 by mouth Col lege MG tablet 15:33: 00:00 daily. of 00 :00 Medicin e Calcium 2018-0 Yes 1{tbl} Take 1 Tab [facility] Carb-Cholec 8-28 by mouth. Col lege alciferol 15:32: of (CALCIUM- 58 Medicin TAMIN D) e 500-200 MG-UNIT per tablet Multiple 2019-0 Yes 1{tbl} Take 1 Tab [facility] Vitamin 8-28 by mouth. [place] (MULTI-LEANNA 15:32: of MINS) TABS 58 Medicin e Calcium 2019-0 Yes 1{tbl} Take 1 Tab [facility] Carb-Cholec 8-28 by mouth. Col lege alciferol 15:32: of (CALCIUM- 58 Medicin TAMIN D) e 500-200 MG-UNIT per tablet Multiple 2019-0 Yes 1{tbl} Take 1 Tab [facility] Vitamin 8-28 by mouth. [place] (MULTI-LEANNA 15:32: of MINS) TABS 58 Medicin e lisinopril- Yes TAKE 1 [facility] hydrochloro 8-02 TABLET BY Col lege thiazide 00:00: MOUTH of (PRINZIDE, 00 TWICE A Medici n ZESTORETIC) DAY e 20-12.5 MG per tablet lisinopril- Yes TAKE 1 [facility] hydrochloro 8-02 TABLET BY Col lege thiazide 00:00: MOUTH of (PRINZIDE, 00 TWICE A Medici n ZESTORETIC) DAY e 20-12.5 MG per tablet lisinopril- Yes TAKE 1 [facility] hydrochloro 8-02 TABLET BY Col lege thiazide 00:00: MOUTH of (PRINZIDE, 00 TWICE A Medici n ZESTORETIC) DAY e 20-12.5 MG per tablet lisinopril- Yes TAKE 1 [facility] hydrochloro 8-02 TABLET BY Col lege thiazide 00:00: MOUTH of (PRINZIDE, 00 TWICE A Medici n ZESTORETIC) DAY e 20-12.5 MG per tablet aspirin Yes 81mg QD Take 1 [facility] (ECOTRIN) 7-02 tablet (81 st 81 MG 00:00: mg total) Hospita enteric 00 by mouth l coated daily. tablet metoprolol 2017-10 Yes 12.5mg QD Take 12.5 [facility] succinate 0-[address] XL 00:00: mouth Hospita (TOPROL-XL) 00 daily. l 25 mg 24 hr tablet metoprolol 0 Yes 25mg Take 25 mg [facility] (TOPROL-XL) 907 by mouth. Col lege 25 MG XL 00:00: of tablet 00 Medicin e metoprolol 2018-0 Yes 25mg Take 25 mg [facility] (TOPROL-XL) 907 by mouth. Col lege 25 MG XL 00:00: of tablet 00 Medicin e metoprolol 2018-0 Yes 25mg Take 25 mg [facility] (TOPROL-XL) 907 by mouth. Col lege 25 MG XL 00:00: of tablet 00 Medicin e atorvastati 0 Yes 20mg QD Take [address] [facility] (LIPITOR) 7-30 by mouth Luke s 20 MG 13:32: daily. Medical tablet 30 [place] clopidogrel 0 Yes 75mg QD Take [address] [facility] (PLAVIX) 75 7-30 by mouth Luke s mg tablet 13:32: daily. Medica l 30 [place] doxazosin Yes 4mg QD Take [address] [facility] (CARDURA) 4 7-30 by mouth Luke s MG tablet 13:32: nightly. Medi germania 30 [place] fluticasone 0 Yes 1{spray QD [address] [facility] (FLONASE) 7-30 } Nasal [facility] 50 13:32: route Medical mcg/actuati 30 daily. [place] on nasal spray lisinopril 0 Yes 20mg QD Take [address] (PRINIVIL,Z 7-30 by mouth Luke s ESTRIL) 20 13:32: daily. Medic al MG tablet 30 Center olopatadine Yes Apply to [facility] (PATADAY) 7-30 eye(s). [facility] 0.2 % Drop 13:32: Medical 30 [place] lansoprazol 0 Yes 30mg QD Take [address] [facility] [facility] e 7-30 by mouth [facility] (PREVACID) 13:32: daily. Medic al 30 MG 30 Center capsule warfarin 0 Yes 10mg QD Take [address] [facility] [facility] (COUMADIN) 7-30 by mouth [facility] 10 MG 13:32: daily. Medical tablet 30 [place] warfarin 0 Yes 7.5mg QD Take 7.[address] (COUMADIN) 7-30 mg by [facility] 7.5 MG 13:32: mouth Medical tablet 30 daily. [place] diflupredna Yes Apply to [facility] te 7-30 eye(s). [facility] (DUREZOL) 13:32: Medical 0.05 % Drop 30 Center bromfenac Yes Apply to [facility] (PROLENSA) 7-30 eye(s). [facility] 0.07 % Drop 13:32: Medica l 30 Center polymyxin B Yes 1[drp] [address] sulf-trimet 730 Tammy[facility] hoprim 13:32: Medical (POLYTRIM) 30 Center 10,000 unit- 1 mg/mL Drop omega Yes Take by [facility] 3-dha-epa-f 730 mouth. [facility]my[facility] suhas oil 13:32: Medical (FISH OIL) 30 Center 1,000 mg (120 mg-180 mg) Cap loratadine Yes 10mg QD Take [address] (CLARITIN) 730 by mouth [facility] 10 mg 13:32: daily. Medical tablet 30 [place] multivitami Yes 1{tbl} QD Take [address] [facility] per 30 tablet by LuReadz tablet 13:32: mouth Medical 30 daily. [place] cholecalcif Yes Take by [facility] St dickson, 7-30 mouth. Greg vitamin D3, 13:32: Medica l 2,000 unit 30 [facility] cyanocobala Yes 1000ug QD Take 1,[address] min 7-30 mcg by Greg (VITAMIN 13:32: mouth Medical B-12) 1000 30 daily. [place] MCG tablet calcium Yes 1{tbl} Take [address] carbonate-v 7-30 tablet by Brynn es itamin D3 13:32: mouth 2 Medic al (CALCIUM- 30 (two) Center TAMIN D) times 500 daily with mg(1,250mg) breakfast -200 unit and per tablet dinner. ascorbic Yes 1000mg QD Take 1,[address] acid, 7-30 mg by TammyReadz vitamin C, 13:32: mouth Medica l (VITAMIN C) 30 daily. [place] 1000 MG tablet VIT A/VIT Yes Take by [facility] S t C/VIT 7-30 mouth. Greg E/ZINC/KENNETH 13:32: Medica l ER (ICAPS 30 Center AREDS ORAL) diflupredna 2019- No 1[drp] Place 1 [facility] te 7- Drop into [place] (DUREZOL) 00:00: 00:00 the right of 0.05 % 00 :00 eye 3 Medicin ophthalmic times e emulsion daily. diflupredna 2019- No 1[drp] Place 1 [facility] te 03-17- Drop into [place] (DUREZOL) 00:00: 00:00 the left of 0.05 % 00 :00 eye 3 Medicin ophthalmic times e emulsion daily. trimethopri 2019- No 1[drp] Place 1 [facility] m-polymyxin 03-17 Drop into Co llege b 00:00: 00:00 the left of (POLYTRIM) 00 :00 eye 3 Medicin ophthalmic times e solution daily. PROLENSA 2019- No 1[drp] Apply 1 [place] kamilla 0.07 % 03-17 Drop to College ophthalmic 00:00: 00:00 eye daily. of solution 00 :00 Medicin e Nepafenac 2017-0 Yes 1[drp] Place 1 [place] [facility] (ILEVRO) 4-11 Drop into Colleg e 0.3 % SUSP 00:00: the left of 00 eye daily. Medicin e Nepafenac 2018-0 Yes 1[drp] Place 1 [place] [facility] (ILEVRO) 4-11 Drop into Colleg e 0.3 % SUSP 00:00: the left of 00 eye daily. Medicin e Nepafenac 2018-0 Yes 1[drp] Place 1 [place] [facility] (ILEVRO) 4-11 Drop into Colleg e 0.3 % SUSP 00:00: the left of 00 eye daily. Medicin e Nepafenac 2018-0 Yes 1[drp] Place 1 [place] [facility] (ILEVRO) 4-11 Drop into Colleg e 0.3 % SUSP 00:00: the left of 00 eye daily. Medicin e besifloxaci 2019- No 1[drp] Place 1 [facility] n 4-08 20- Drop into [place] (BESIVANCE) 00:00: 00:00 the left o f 0.6 % 00 :00 eye 3 Medicin ophthalmic times e suspension daily. Shake well before instillati on diflupredna 2019- No 1[drp] Place 1 [facility] te 4-11 - Drop into College (DUREZOL) 00:00: 00:00 the left of 0.05 % 00 :00 eye two Medicin ophthalmic times e emulsion daily. docusate Yes 1{tbl} Take 1 [facility] (COLACE) 50 9-06 tablet by Col lege MG/5ML 18:50: mouth. of liquid 43 Medicin e docusate Yes 1{tbl} Take 1 [facility] (COLACE) 50 9-06 tablet by Col lege MG/5ML 18:50: mouth. of liquid 43 Medicin e lisinopril Yes 10mg Take 10 mg [facility] (PRINIVIL, 06-18 by mouth Colle ge ZESTRIL) 10 18:49: two times o f MG tablet 04 daily. Medicin e Multiple Yes Take by [facility] Vitamins-Mi 9-06 mouth. Colleg e nerals 18:49: of (VITEYES 04 Medicin COMPLETE e OR) doxazosin Yes 4mg Take 4 mg [place] [facility] (CARDURA) 4 06-18 by mouth Beto ege MG tablet 18:49: daily. of 04 Medicin e warfarin Yes 7.5mg Take 7.5 [facility] (COUMADIN) -06 mg by College 7.5 MG 18:49: mouth of tablet 04 daily. Medicin Mondays, e Friday, Fri, and Friday aspirin 81 Yes 81mg Take 81 mg [facility] MG tablet 06-18 by mouth Colleg e 18:49: daily. of 04 Medicin e lisinopril Yes 10mg Take 10 mg [facility] (PRINIVIL, 06-18 by mouth Colle ge ZESTRIL) 10 18:49: two times o f MG tablet 04 daily. Medicin e Multiple Yes Take by [facility] Vitamins-Mi 9-06 mouth. Colleg e nerals 18:49: of (VITEYES 04 Medicin COMPLETE e OR) lansoprazol Yes 30mg Take 30 mg [facility] e -06 by mouth College (PREVACID) 18:49: daily. of 30 MG 04 Medicin capsule e doxazosin Yes 4mg Take 4 mg [place] [facility] (CARDURA) 4 06-18 by mouth Beto ege MG tablet 18:49: daily. of 04 Medicin e warfarin Yes 7.5mg Take 7.5 [facility] (COUMADIN) - mg by [place] 7.5 MG 18:49: mouth of tablet 04 daily. Medicin Mondays, e Friday, Fri, and Friday warfarin Yes 5mg Take 5 mg [facility] (COUMADIN) 06-18 by mouth Colle ge 5 MG tablet 18:49: daily. of Friday Medicin and Friday e aspirin 81 Yes 81mg Take 81 mg [facility] MG tablet 06-18 by mouth Colleg e 18:49: daily. of Medicin e lisinopril Yes 10mg Take 10 mg [facility] (PRINIVIL, 06-18 by mouth Colle ge ZESTRIL) 10 18:49: two times o f MG tablet 04 daily. Medicin e Multiple Yes Take by [facility] Vitamins-Mi 06-18 mouth. Colleg e nerals 18:49: of (VITEYES 04 Medicin COMPLETE e OR) Loratadine Yes Take by [place] 10 MG CAPS 06-18 mouth. [place] 18:49: of 04 Medicin e atorvastati Yes 20mg Take 20 mg [facility] n (LIPITOR) 06-18 by mouth Beto ege 20 MG 18:49: daily. of tablet Medicin e Calcium-Mag Yes 1200mg Take 1,200 [facility] nesium-Leanna 06-18 mg by [place] min D 18:49: mouth. of (CALCIUM 04 Medicin 1200+D3 OR) e Cholecalcif Yes Take by [place] [facility] dickson 06-18 mouth. [place] (VITAMIN 18:49: of D3) 2000 01 Medicin UNITS CAPS e Cyanocobala Yes Take by [place] [facility] min 06-18 mouth. [place] (VITAMIN 18:49: of B-12 OR) 04 Medicin e Ascorbic Yes Take by [facility] Acid 06-18 mouth. [place] (VITAMIN C 18:49: of OR) 04 Medicin e doxazosin Yes 4mg Take 4 mg [place] [facility] (CARDURA) 4 06-18 by mouth Beto ege MG tablet 18:49: daily. of Medicin e warfarin Yes 7.5mg Take 7.5 [facility] (COUMADIN) 9-06 mg by [place] 7.5 MG 18:49: mouth of tablet 04 daily. Medicin Mondays, e Friday, Fri, and Friday aspirin 81 Yes 81mg Take 81 mg [facility] MG tablet 06-18 by mouth Colleg e 18:49: daily. of Medicin e lisinopril Yes 10mg Take 10 mg [facility] (PRINIVIL, 06-18 by mouth Colle ge ZESTRIL) 10 18:49: two times o f MG tablet 04 daily. Medicin e Multiple Yes Take by [facility] Vitamins-Mi 06-18 mouth. Colleg e nerals 18:49: of (VITEYES Medicin COMPLETE e OR) atorvastati Yes 20mg Take 20 mg [facility] n (LIPITOR) 06-18 by mouth Beto ege 20 MG 18:49: daily. of tablet Medicin e Calcium-Mag Yes 1200mg Take 1,200 [facility] nesium-Leanna - mg by [place] min D 18:49: mouth. of (CALCIUM 04 Medicin 1200+D3 OR) e Cholecalcif Yes Take by [place] k[place] dickson 06-18 mouth. [place] (VITAMIN 18:49: of D3) 2000 01 Medicin UNITS CAPS e Cyanocobala Yes Take by [facility] min 06-18 mouth. [place] (VITAMIN 18:49: of B-12 OR) 04 Medicin e doxazosin Yes 4mg Take 4 mg [place] [facility] (CARDURA) 4 06-18 by mouth Beto ege MG tablet 18:49: daily. of Medicin e warfarin Yes 7.5mg Take 7.5 [facility] (COUMADIN) 9-06 mg by [place] 7.5 MG 18:49: mouth of tablet 04 daily. Medicin Mondays, e Friday, Fri, and Friday aspirin 81 Yes 81mg Take 81 mg [facility] MG tablet 06-18 by mouth Colleg e 18:49: daily. of 04 Medicin e cycloSPORIN Yes 1[drp] 1 Drop two [facility] E 06-18 times College (RESTASIS) 18:43: daily. of 0.05 % 25 Medicin ophthalmic e emulsion olopatadine Yes [place] HCl 06-18 [place] ([facility]) 18:43: of 0.2 % 25 Medicin ophthalmic e solution olopatadine Yes [facility] HCl 06-18 [place] ([facility]) 18:43: of 0.2 % 25 Medicin ophthalmic e solution fluticasone Yes INSTILL 2 [facility] (FLONASE) 8-10 SPRAYS IN Colle ge 50 MCG/ACT 00:00: EACH of nasal spray 00 NOSTRIL Medic in EVERY DAY e fluticasone 2019- No INSTILL 2 [facility] (FLONASE) 8-10 07-16 SPRAYS IN Beto ege 50 MCG/ACT 00:00: 00:00 EACH of nasal spray 00 :00 NOSTRIL Medic in EVERY DAY e fluticasone Yes daily as [facility] (FLONASE) 2-13 needed. College 50 MCG/ACT 00:00: of nasal spray 00 Medicin e fluticasone 2017 Yes daily as [facility] (FLONASE) 2-13 needed. College 50 MCG/ACT 00:00: of nasal spray 00 Medicin e fluticasone 2017-0 Yes daily as [facility] (FLONASE) 2-13 needed. College 50 MCG/ACT 00:00: of nasal spray 00 Medicin e fluticasone Yes 2{spray 2 sprays [facility] (FLONASE) 2-13 } by Each 50 00:00: Nare route Hospita mcg/actuati 00 as needed. l on nasal spray metoprolol 2014-10 Yes 50mg Take 50 mg [facility] (TOPROL-XL) 0-02 by mouth Beto ege 50 MG XL 18:09: daily. of tablet 48 Medicin e Immunizations Ordered Immunization Filled Immunization Date Status Commen ts Source Name Name CAROLYN SANDYID-Mya 2020-12-07 Completed [facility] VACC[facility]ATION 00:00:00 Hospital [facility] COVID-19 2020-10-31 Completed Methodis t MRNA VACCINATION 00:00:00 Hospital Vital Signs Vital Name Observation Time Observation Value Comments Source Systolic blood 2020-06-23 15:13:00 104 mm[facility]Hg[facility] 2020-06-23 15:13:00 62 mm[Hg] [facility] Heart rate 2020-06-23 15:13:00 72 /min [facility] Body weight 2020-06-23 15:13:[facility] 2020-06-23 15:13:00 104 [facility]Hg[facility] 2020-06-23 15:13:00 62 mm[Hg] [facility] Heart rate 2020-06-23 15:13:00 72 [facility] 2020-06-23 15:13:00 97.523 kg [facility] Procedures Procedure Date / Time Performing Clinician Source Performed PROTHROMBIN TIME WITH 2023-02-11 00:00:00 Provider, Not In [facility] PROTHROMBIN TIME WITH 2023-01-28 00:00:00 Provider, Not In [facility] PROTHROMBIN TIME WITH 2023-01-14 00:00:00 Provider, Not In [facility] PROTHROMBIN TIME WITH 2022-12-31 00:00:00 Provider, Not In [facility] PROTHROMBIN TIME WITH 2022-12-17 00:00:00 Provider, Not In [facility] PROTHROMBIN TIME WITH 2022-12-03 00:00:00 Provider, Not In [facility] PROTHROMBIN TIME WITH 2022-11-19 00:00:00 Provider, Not In [facility] PROTHROMBIN TIME WITH 2022-11-05 00:00:00 Provider, Not In [facility] PROTHROMBIN TIME WITH 2022-10-22 00:00:00 Provider, Not In [facility] PROTHROMBIN TIME WITH 2022-10-09 00:00:00 Provider, Not In [facility] PROTHROMBIN TIME WITH 2022-09-24 00:00:00 Provider, Not In [facility] PROTHROMBIN TIME WITH 2022-09-10 00:00:00 Provider, Not In [facility] PROTHROMBIN TIME WITH 2022-08-27 00:00:00 Provider, Not In [facility] PROTHROMBIN TIME WITH 2022-08-13 00:00:00 Provider, Not In [facility] PROTHROMBIN TIME WITH 2022-07-30 00:00:00 Provider, Not In [facility] PROTHROMBIN TIME WITH 2022-07-16 00:00:00 Provider, Not In [facility] PROTHROMBIN TIME WITH 2022-07-02 00:00:00 Provider, Not In [facility] PROTHROMBIN TIME WITH 2022-06-18 00:00:00 Provider, Not In [facility] PROTHROMBIN TIME WITH 2022-06-04 00:00:00 Provider, Not In [facility] PROTHROMBIN TIME WITH 2022-05-21 00:00:00 Provider, Not In [facility] PROTHROMBIN TIME WITH 2022-05-06 00:00:00 Provider, Not In [facility] PROTHROMBIN TIME WITH 2022-04-22 00:00:00 Provider, Not In [facility] MRI SPINE EXTERNAL 2022-04-08 20:04:00 Maria L Holliday [facility] STUDY [place] XR SPINE EXTERNAL STUDY 2022-04-02 20:04:00 Maria L Holliday [facility] PROTHROMBIN TIME WITH 2022-04-01 00:00:00 Provider, Not In [facility] PROTHROMBIN TIME WITH 2022-03-18 00:00:00 Provider, Not In [facility] PROTHROMBIN TIME WITH 2022-03-06 00:00:00 Provider, Not In [facility] PROTHROMBIN TIME WITH 2022-02-18 00:00:00 Provider, Not In [facility] XR HIPS 2 VW RIGHT 2020-06-23 15:24:53 Sil Gilbert [facility] ASSIGNMENT OF BENEFITS 2020-06-23 14:45:46 Doctor Unassigned, No [facility] YAG CAPSULOTOMY - OS - 2020-05-09 22:44:17 Bob Kunz [facility] EYE [facility] Plan of Care Planned Activity Planned Date Details Comments Source Future Scheduled 2023-02-11 65+ PNEUMOCOCCAL [facility] Test 13:36:59 VACCINE (1 - PCV) [code = 65+ PNEUMOCOCCAL VACCINE (1 - PCV)] Future Scheduled 2023-02-11 SHINGLES VACCINES (1 Met [facility] Test 13:36:59 of 2) [code = SHINGLES VACCINES (1 of 2)] Future Scheduled 2023-02-11 COVID-19 VACCINE (4 - [facility] Test 13:36:59 Booster for Moderna series) [code = COVID-19 VACCINE (4 - Booster for Moderna series)] Future Scheduled 2023-02-11 INFLUENZA VACCINE [facility] Test 13:36:59 [code = INFLUENZA VACCINE] Future Scheduled TETANUS SHOT (ADULT) [facility] College of Test [code = TETANUS SHOT Medicin e (ADULT)] Future Scheduled FALL SCREEN [code = [facility] or College of Test FALL SCREEN] Medicine Future Scheduled PNEUMOVAX >=65 [facility] Co llege of Test (PPSV23) [code = Medicine PNEUMOVAX >=65 (PPSV23)] Future Scheduled MEDICARE AWV (Initial) B [facility] College of Test [code = MEDICARE AWV Medicin e (Initial)] Future Scheduled FLU VACCINE > 6 MONTHS B [facility] of Test [code = FLU VACCINE > Medici ne 6 MONTHS] Future Scheduled TETANUS SHOT (ADULT) [place] [facility] College of Test [code = TETANUS SHOT Medicin e (ADULT)] Future Scheduled ZOSTER VACCINE (1 of [facility] of Test 2) [code = ZOSTER Medicine VACCINE (1 of 2)] Future Scheduled FALL SCREEN [code = [facility] FALL SCREEN] Medicine Future Scheduled PNEUMOVAX >=65 [facility] Co llege of Test (PPSV23) [code = Medicine PNEUMOVAX >=65 (PPSV23)] Future Scheduled [facility] [code = MEDICARE AWV Medicin e (Initial)] Future Scheduled FLU VACCINE > 6 MON[facility] Test [code = FLU VACCINE > Medici ne 6 MONTHS] Future Scheduled MEDICARE AWV [code = [place] [facility] of Test MEDICARE AWV] Medicine Future Scheduled TETANUS SHOT (ADULT) [place] [facility] of Test [code = TETANUS SHOT Medicin e (ADULT)] Future Scheduled FALL SCREEN [code = [facility] Test FALL SCREEN] Medicine Future Scheduled PNEUMOVAX >=65 [facility] of Test (PPSV23) [code = Medicine PNEUMOVAX >=65 (PPSV23)] Future Scheduled PREVNAR >= 65 (PCV13) Ba [facility] of Test [code = PREVNAR >= 65 Medici ne (PCV13)] Future Scheduled FLU VACCINE > 6 MONTHS B [facility] of Test [code = FLU VACCINE > Medici ne 6 MONTHS] Future Scheduled TETANUS SHOT (ADULT) [facility] of Test [code = TETANUS SHOT Medicin e (ADULT)] Future Scheduled FALL SCREEN [code = [facility] Test FALL SCREEN] Medicine Future Scheduled [facility] ([facility]) [code = Medicine PNEUMOVAX >=65 (PPSV23)] Future Scheduled MEDICARE AWV (Initial) B [facility] of Test [code = MEDICARE AWV Medicin e (Initial)] Future Scheduled FLU VACCINE > 6 MONTHS B [facility] Test [code = FLU VACCINE > Medici ne 6 MONTHS] Encounters Start End Encounter Admission Attending Care Care Encounter Source Date/Time Date/Time Type Type Clinicians Facility Department ID 2022-08-24 Outpatient SYSTEM, [facility] [id number] 10:05:00 PROVIDER Tuan o n 2021-09-18 Outpatient SYSTEM, [facility] [id number] 10:12:49 PROVIDER Tuan o n 2023-02-11 2023-02-11 Telephone Naeem, 1.2.840.1 [id number] Methodi 00:00:00 00:00:[id number] 3.430.2.7 Hospit a .3.918045 l .8 2023-01-29 2023-01-29 Telephone Naeem, 1.2.840.1 [id number] [id number] Methodi 00:00:00 00:00:[id number] 3.430.2.7 Hospit a .3.689890 l .8 2023-01-14 2023-01-14 Telephone Naeem, 1.2.840.1 [id number] Methodi 00:00:00 00:00:[id number] 3.430.2.7 Hospit a .3.165052 l .8 2022-12-31 2022-12-31 Telephone Michael, 1.2.840.1 [id number] [id number] Methodi 00:00:00 00:00:00 Lana A [id number] 3.430.2.7 Hospit a .3.984458 l .8 2022-12-17 2022-12-17 Telephone Hartley, 1.2.840.1 [id number] [id number] Methodi 00:00:00 00:00:[id number] 3.430.2.7 Hospit a .3.741965 l .8 2022-12-03 2022-12-03 Telephone Hartley, 1.2.840.1 [id number] 2099 [id number] Methodi 00:00:00 00:00:[id number] 3.430.2.7 Hospit a .3.212421 l .8 2022-11-29 2022-11-29 [facility] WENDY [facility] [id number] 10:08:30 10:56:53 LEVY geronimo 2022-11-19 2022-11-19 Telephone Michael, 1.2.840.1 [id number] [id number] Methodi 00:00:00 00:00:00 Lana A [id number] 3.430.2.7 Hospit a .3.172794 l .8 2022-11-05 2022-11-05 Telephone Michael, 1.2.840.1 [id number] 2099 [id number] Methodi 00:00:00 00:00:00 Lana A [id number] 3.430.2.7 Hospit a .3.485667 l .8 2022-10-29 2022-10-29 Refill Murray, 1.2.840.1 [id number] Methodi 00:00:00 00:00:00 Jose E Jacobson [id number] 739 s t 3.430.2.7 Hospit a .3.856510 l .8 2022-10-22 2022-10-22 [facility], 1.2.840.1 [id number] Methodi 00:00:00 00:00:00 Jose E A. 71606.1.1 848 s t 3.430.2.7 Hospit a .3.336677 l .8 2022-10-22 2022-10-22 Telephone Hartley, 1.2.840.1 [id number] 2099 [id number] Methodi 00:00:00 00:00:[id number] 3.430.2.7 Hospit a .3.848441 l .8 2022-10-10 2022-10-10 Telephone Hartley, 1.2.840.1 [id number] 2099 [id number] Methodi 00:00:00 00:00:[address] 3.430.2.7 Hospit a .3.019145 l .8 2022-10-09 2022-10-09 Telephone Hartley, 1.2.840.1 [id number] 2099 [id number] Methodi 00:00:00 00:00:[address] 3.430.2.7 Hospit a .3.091028 l .8 2022-09-24 2022-09-24 Telephone Hartley, 1.2.840.1 [id number] 2099 [id number] Methodi 00:00:00 00:00:[address] 3.430.2.7 Hospit a .3.418370 l .8 2022-09-10 2022-09-10 Telephone Hartley, 1.2.840.1 [id number] 2099 [id number] Methodi 00:00:00 00:00:[address] 3.430.2.7 Hospit a .3.099342 l .8 2022-08-29 2022-08-29 Outpatient WENDY GALLO MDA MDA [id number] 09:02:26 09:54:56 STEPHANE geronimo 2022-08-27 2022-08-27 Telephone Hartley, 1.2.840.1 [id number] 2099 [id number] Methodi 00:00:00 00:00:[address] 3.430.2.7 Hospit a .3.515584 l .8 2022-08-13 2022-08-13 Telephone Michael, 1.2.840.1 [id number] 2099 [id number] Methodi 00:00:00 00:00:00 Lana A [address].1.[address] 3.430.2.7 Hospit a .3.866716 l .8 2022-07-30 2022-07-30 Telephone Naeem, 1.2.840.1 [id number] 2099 [id number] Methodi 00:00:00 00:00:[address] 3.430.2.7 Hospit a .3.235723 l .8 2022-07-16 2022-07-16 Telephone Hartley, 1.2.840.1 [id number] 2099 [id number] Methodi 00:00:00 00:00:[address] 3.430.2.7 Hospit a .3.163484 l .8 2022-07-15 2022-07-15 Telephone Michael, 1.2.840.1 [id number] 2099 [id number] Methodi 00:00:00 00:00:00 L[address].1.[address] 3.430.2.7 Hospit a .3.369274 l .8 2022-07-02 2022-07-02 Telephone Naeem, 1.2.840.1 [id number] 2099 [id number] Methodi 00:00:00 00:00:[address] 3.430.2.7 Hospit a .3.029834 l .8 2022-06-26 2022-06-26 [facility], 1.2.840.1 [id number] 6235 Methodi 00:00:00 00:00:00 Jose E AMichelle 53549.1.1 070 s t 3.430.2.7 Hospit a .3.362684 l .8 2022-06-18 2022-06-18 Telephone Hartley, 1.2.840.1 [id number] 2099 [id number] Methodi 00:00:00 00:00:[address] 3.430.2.7 Hospit a .3.267315 l .8 2022-06-04 2022-06-04 Documentat Michael, 1.2.840.1 [id number] Methodi 00:00:00 00:00:00 ion Lana Fermin 89952.1.[address] 3.430.2.7 Hospit a .3.230898 l .8 2022-05-29 2022-05-29 Outpatient [facility] [id number] [address] [place] [address] 09:40:33 10:34:12 Rufino ortiz of Medicin e 2022-05-21 2022-05-21 Telephone Naeem, 1.2.840.1 [id number] 2099 [id number] Methodi 00:00:00 00:00:[address] 3.430.2.7 Hospit a .3.500733 l .8 2022-05-14 2022-05-14 Telephone Naeem, 1.2.840.1 [id number] 2099 [id number] Methodi 00:00:00 00:00:[address] 3.430.2.7 Hospit a .3.670946 l .8 2022-05-10 2022-05-10 Pre-Admiss Miya, 1.2.840.1 [id number] 862 [id number] Methodi 13:00:00 14:00:00 ion Maria L 15344.1.[address] Testing Dawson 3.430.2.7 Hospi ta .3.843864 l .8 2022-05-07 2022-05-07 Telephone Naeem, 1.2.840.1 [id number] 2099 [id number] Methodi 00:00:00 00:00:[address] 3.430.2.7 Hospit a .3.254331 l .8 2022-04-24 2022-04-24 [facility], 1.2.840.1 [id number] 64533 Methodi 11:42:58 23:59:00 Encounter Maria L 14434.1.1 068 s t [place] 3.430.2.7 Hospi ta .3.959375 l .8 2022-04-24 2022-04-24 [facility], 1.2.840.1 [id number] 31220 Methodi 11:40:22 11:41:00 Encounter Maria L 58933.1.1 663 s t [place] 3.430.2.7 Hospi ta .3.317638 l .8 2022-04-24 2022-04-24 [facility], 1.2.840.1 [id number] 39512 80030 Methodi 11:38:38 11:39:00 Encounter Maria L 95013.1.1 441 s t [place] 3.430.2.7 Hospi ta .3.946199 l .8 2022-04-24 2022-04-24 Outpatient SELLIN, [facility] [id number] [address] 00:00:00 00:00:00 MARIA L [address] 2022-04-24 2022-04-24 Outpatient [facility], [facility] [id number] [address] 00:00:00 00:00:00 MARIA L [address] 2022-04-24 2022-04-24 Outpatient [facility], [facility] [id number] [address] 00:00:00 00:00:00 MARIA L [address] 2022-04-24 2022-04-24 Orders Naeem, 1.2.840.1 [id number] 4970 Methodi 00:00:00 00:00:00 [address]ur[address]ha 13433.1.[address] 3.430.2.7 Hospit a .3.249702 l .8 2022-04-24 2022-04-24 Telephone Naeem, 1.2.840.1 [id number] 2100 402454 Methodi 00:00:00 00:00:[address] 3.430.2.7 Hospit a .3.503150 l .8 2022-04-22 2022-04-22 Telephone Michael, 1.2.840.1 [id number] 2099 [id number] Methodi 00:00:00 00:00:00 [address] Fermin [address]40.1.[address] 3.430.2.7 Hospit a .3.797116 l .8 2022-04-16 2022-04-16 Refill Murray, 1.2.840.1 [id number] 6501 Methodi 00:00:00 00:00:00 Jose E Jacobson 44695.1.1 794 s t 3.430.2.7 Hospit a .3.088167 l .8 2022-04-09 2022-04-09 Telephone Naeem, 1.2.840.1 [id number] 2099 [id number] Methodi 00:00:00 00:00:[address] 3.430.2.7 Hospit a .3.067218 l .8 2022-04-01 2022-04-01 Telephone Naeem, 1.2.840.1 [id number] 2099 [id number] Methodi 00:00:00 00:00:[address] 3.430.2.7 Hospit a .3.369738 l .8 2022-03-18 2022-03-18 Documentat Michael, 1.2.840.1 [id number] 577 [id number] Methodi 00:00:00 00:00:00 ion Lana Fermin 23403.1.[address] 3.430.2.7 Hospit a .3.323288 l .8 2022-03-06 2022-03-06 Telephone Naeem, 1.2.840.1 [id number] 2099 [id number] Methodi 00:00:00 00:00:[address] 3.430.2.7 Hospit a .3.543691 l .8 2022-02-19 2022-02-19 Telephone Naeem, 1.2.840.1 [id number] 2099 [id number] Methodi 00:00:00 00:00:00 Anuradha 61637.1.1 653 3.430.2.7 Hospit a .3.607414 l .8 2021-11-29 2021-11-29 Outpatient WENDY TYLER MDA MDA [id number] 09:01:11 10:15:20 LEVY geronimo 2021-10-24 2021-10-24 Outpatient [facility] BC [id number] [facility] 08:58:30 11:08:26 Agustín Medicin e 2021-08-30 2021-08-30 Outpatient WENDY GALLO MDA MDA [id number] 08:53:21 09:38:16 STEPHANE geronimo 2021-08-28 2021-08-28 Outpatient WENDY GALLO MDA MDA [id number] 09:21:06 10:00:39 STEPHANE geronimo 2020-12-07 2020-12-07 Outpatient [facility] [id number] 00:00:00 00:00:00 552 Method i 2020-12-06 2020-12-06 Outpatient [facility] [id number] [address] 00:00:00 00:00:00 JOSE E 589 Method i 2020-12-06 2020-12-06 Outpatient [facility] [id number] [address] 00:00:00 00:00:00 JOSE E 629 Method i 2020-11-21 2020-11-21 Outpatient [facility] [id number] [address] 00:00:00 00:00:00 JOSE E 257 Method i 2020-11-21 2020-11-21 Outpatient [facility] [id number] [address] 00:00:00 00:00:00 JOSE E [address] 2020-11-05 2020-11-05 Patient Fermin MNJAY 1.2.840.114 [id number] [facility] 00:00:00 00:00:00 Outreach Eleuterio ORNELAS 350.1.13.10 i ty of [facility] 4.2.7.2.686 Kb BUTLER [id number] In dical [address] 2020-10-31 2020-10-31 Outpatient [facility] [id number] [address] 00:00:00 00:00:[address] 2020-07-11 2020-07-11 [facility] [id number] [address] 00:00:00 00:00:00 JOSE E Lewis [facility] 2020-06-23 2020-06-23 Hospital [facility] 1.2.840.114 [id number] [employer] 10:24:53 23:59:00 Encounter [facility] 350.1.13.10 ity of Surgical 4.2.7.2.686 Nicholas as Specialti [id number] Me dical es 809 [facility] 2020-06-23 2020-06-23 [facility] 1.2.840.114 [id number] 09:49:06 10:55:00 Visit [facility] 350.1.13.10 Surgical 4.2.7.2.686 Specialti [id number] es 198 [place] 2020-06-23 2020-06-23 Office [facility] 1.2.840.114 [id number] Univers 09:49:06 10:55:00 Visit [facility] 350.1.13.10 it y of Surgical 4.2.7.2.686 Nicholas as Specialti [phone] Me dical es 198 [facility] 2020-06-23 2020-06-23 [facility] [id number] [facility] 10:00:00 10:00:00 SIL ity of [facility] 2020-06-23 2020-06-23 Orders Doctor ROGELIO 1.2.840.114 [id number] Univers 00:00:00 00:00:00 Only Unassigned, HOLGER 350.1.13.10 ity of [facility] 4.2.7.2.686 Nicholas as [id number] [facility] germania [address] 2020-05-24 2020-05-24 Office JACQUES Sebastian 1.2.840.114 [id number] [facility] 09:07:01 11:32:48 Visit Jacob Cano AMBULATOR 350.1.13.21 College Y 0.2.7.2.686 of [id number] [facility] eron 300 e 2020-05-24 2020-05-24 Office JACQUES Sebastian 1.2.840.114 [id number] 09:07:01 11:32:48 Visit Jacob Cano AMBULATOR 350.1.13.21 Y 0.2.7.2.686 [id number] 300 2020-05-09 2020-05-09 Office JACQUES Kunz 1.2.840.114 [id number] [facility] 15:33:07 16:55:39 Visit Bob D AMBULATOR 350.1.13.21 College Y 0.2.7.2.686 of [id number] Medi eron 300 e 2020-04-27 2020-04-27 Office Yasir, JACQUES 1.2.840.114 [id number] [facility] 07:59:49 09:37:41 Visit Kaylah AMBULATOR 350.1.13.21 College Trace Y 0.2.7.2.686 of [id number] Medi eron 300 e 2019-10-28 2019-10-28 Outpatient [facility] [id number] [place] [address] 00:00:00 00:00:00 TAZ [address] 2019 2019 Office JACQUES Lara 1.2.840.114 [id number] [facility] 10:24:38 11:34:18 Visit Nakia AMBULATOR 350.1.13.21 College Y 0.2.7.2.686 of [id number] Medi eron 300 e 2017-12-30 2017-12-31 Outpatient WENDY BRAMBILA MDA MDA [id number] 07:54:16 07:37:34 KAYLEE geronimo Results Test Description Test Time Test Comments Results Result Comments Source Prothrombin time with INR 2023-02-11 00:00:00 Test Item Value Reference Range Interpretation Comme nts INR (test code = 70111-4) [facility] [id number] 15:51:53He has degenerative changes in his right hip but they are ?[facility] CAPSULOTOMY - OS - LEFT [id number] 22:44:17 AND REVIEW OF INFORMED CONSENT: Av Loredo and I have discussed that there is a 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 I have reviewed with the patient the risks, benefits, and alternatives to this surgery. The major potential sight- threatening complication is retinal detachment, which wouldrequire additional surgery and could result in permanent partial or complete loss of vision. A partial list of other potential complications includes glaucoma, floaters, and damage to the lens implant.PLAN:The planned procedure is Nd:YAG posterior capsulotomy in the left eye. Nd:YAG posterior capsulotomy was performed on the left eye. Parameters were: 22 pulses 3.5 mJ There were no complications. One drop of Combigan was given, and I reviewed instructions re care of the eye and activity. ASSESSMENT:[facility]
--- NOTE | 2023-02-14 14:06 | RAD REPORT ---
EXAM DESCRIPTION: US - Urinary Bladder - 02/14/2023 1:51 pm CLINICAL HISTORY: hematuria-eval bladder COMPARISON: No comparisons FINDINGS: No gross abnormalities of the bladder identified. Pre-void bladder volume: 167 mL Post-void residual volume: 13 mL IMPRESSION: Grossly unremarkable appearance of the bladder. No urinary retention.
[2023-02-14 14:38] LABS: Absolute Lymphocytes (CBC) 1.1 K/uL (0.7-4.9); Hematocrit 33.3 % (39.6-49.0); Lymphocytes % 17.2 % (15.3-44.8); MCV 98.4 fL (80-100); RBC Red Blood Cell Count 3.38 M/uL (4.33-5.43)
[2023-02-14 14:42] LABS: Protime INR 2.66
[2023-02-14 14:53] LABS: Potassium 3.7 mEq/L (3.5-5.1)
[2023-02-14 15:06] LABS: Urine Bacteria None Seen /HPF (<20); Urine RBC >50 /HPF (None Seen)
[2023-02-14] MEDS ORDERED: ONDANSETRON 4 MG/2 ML VIAL ONE ×2 (15:19→16:12)
[2023-02-14] MEDS ORDERED: ACETAMINOPHEN 500 MG TAB ONE (15:19)
--- NOTE | 2023-02-14 15:27 | RAD REPORT ---
EXAM DESCRIPTION: CTAbdomen Pelvis W Contrast - 02/14/2023 3:13 pm CLINICAL HISTORY: ABD PAIN COMPARISON: Abdomen Pelvis W Contrast dated 06/14/2020 TECHNIQUE: CT of the abdomen and pelvis was performed. All CT scans are performed using dose optimization technique as appropriate and may include automated exposure control or mA/KV adjustment according to patient size. FINDINGS: Lower chest: Multi-vessel coronary artery disease. Aortic valve calcifications. Mild circu mferential thickened distal esophagus. Liver: No acute abnormality or suspicious lesions. Biliary: No biliary ductal dilatation. Stomach: No significant focal abnormality. Duodenum: No significant focal abnormality. Pancreas: No significant abnormality. Spleen: No significant abnormality. Adrenal: No suspicious lesions. Kidney/ureter: Mild right-sided hydroureteronephrosis. No obstructing stone is identified. Retroperitoneum: No retroperitoneal adenopathy. 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 Atherosclerosis. Bowel: Diverticulosis. No evidence of acute diverticulitis.. Peritoneum: No ascites or free air. Small fat containing inguinal hernias . Bladder: Wall thickening and enhancement of the bladder. Reproductive: No adnexal masses. Bones: T12 and L4 compression fractures noted which are new from prior. The T12 compression fracture has approximately 7% loss of height anteriorly. The L4 compression fracture has approximately 40% los s of height. No significant bony retropulsion. Other: n/a IMPRESSION: Mild right-sided hydroureteronephrosis without evidence of obstructing stone or mass. Th is could be secondary to either ascending urinary tract infection or recently passed stone. Note that the bladder wall is thickened and mildly hyperenhancing which may reflect acute on chronic inflammat ion. New T12 and L4 compression fractures since 2019. These are favored chronic.
[2023-02-14] MEDS ORDERED: NA CHLORIDE 0.9% 500 ML ONE (16:12)
--- NOTE | 2023-02-14 16:41 | EDPHYS ---
Physician Documentation [facility] Name: Memo Loredo Age: 87 yrs Sex: Male : 1935 Arrival Date: 02/14/2023 Time: 12:55 Bed 4 Private MD: ED Physician Fadi Pelayo HPI: 02/14 13:04 This 87 yrs old Male presents to ER via Ambulatory with complaints of Urinary bs3 Problem, Blood in urine. 13:04 87yo f hx of prostate ca sp proton therapy presents with painless hematuria, brb 30min bs3 prior to arrival. No difficulty urinating. Never had this before, no back pain, fever, chills, or anything else bothering him. No new meds. No fever, or chills, no back pain, or anything else bothering him. Historical: - Allergies: 13:19 Cefuroxime; vg1 13:19 Morphine; vg1 13:19 PENICILLINS; vg1 13:19 Sulfa (Sulfonamide Antibiotics); vg1 - PMHx: 13:19 Atrial Fib; Hypertension; vg1 - Immunization history:: Client reports receiving the 2nd dose of the Covid vaccine. - Social history:: Smoking status: Patient/guardian denies using tobacco. ROS: 13:47 Constitutional: Negative for fever, chills bs3 13:47 All other systems are negative. Exam: 13:47 Constitutional: This is a well developed, well nourished patient who is awake, alert, bs3 and in no acute distress. Head/Face: Normocephalic, atraumatic. Eyes: Pupils equal round and reactive to light, extra-ocular motions intact. Lids and lashes normal. ENT: mmm, no posterior phyarngeal erythema Chest/axilla: Normal chest wall appearance and motion. Nontender with no deformity. No lesions are appreciated. Cardiovascular: Regular rate and rhythm with a normal S1 and S2. symmetric pulses in upper extremities Respiratory: Lungs have equal breath sounds bilaterally, clear to auscultation, no respiratory distress Abdomen/GI: Soft, non-tender, no rebound or guarding Back: No spinal tenderness. No costovertebral tenderness. Full range of motion. Skin: Warm, dry with normal turgor. Normal color with no rashes, no lesions, and no evidence of cellulitis. MS/ Extremity: Pulses equal, no cyanosis. Neurovascular intact. Full, normal range of motion. Neuro: Awake and alert, GCS 15, oriented to person, place, time, and situation. Cranial nerves II-XII grossly intact. Motor strength 5/5 in all extremities. Sensory grossly intact. Vital Signs: 13:17 BP 141 / 72; Pulse 66; Resp 16; Temp 98.2(O); Pulse Ox 97% on R/A; Weight 97.52 kg; vg1 Height 5 ft. 9 in. ; Pain 0/10; 13:17 Body Mass Index 31.75 (97.52 kg, 175.26 cm) vg1 13:17 Pain Scale: Adult vg1 MDM: 12:57 Patient medically screened. bs3 13:47 Data reviewed: vital signs, nurses notes. ED course: Patient with sudden onset of gross bs3 hematuria will evaluate for bladder mass/polyp will evaluate for renal failure will evaluate for urinary tract infection patient able to urinate without difficulty no signs of obstruction currently no clots, advised urology f/u. 13:52 ED course: pt now endorsing being on coumadin, will check inr. bs3 15:51 ED course: After the ultrasound patient developed right lower quadrant pain his abdomen bs3 was soft he had no CVA tenderness but he did complain of mild pain therefore CT was done patient also had nausea and then vomited nonbloody nonbilious emesis his CT was nondiagnostic for acute pathology possible passed stone although patient did not feel a stone he has no UTI symptoms and no WBCs in his urine unlikely he did feel better although still had some pain his CT did show incidental fractures which were reportedly chronic no fall. 16:39 ED course: Patient feeling much better nausea improved, done soft nontender of note bs3 patient does report a history of spinal fractures in the past his pain is improved he still has some mild back pain possibly related to vomiting and his chronic fractures. 02/14 13:04 Order name: CBC with Diff; Complete Time: 14:54 bs3 02/14 13:04 Order name: BMP; Complete Time: 14:54 bs3 02/14 13:51 Order name: PT-INR; Complete Time: 14:54 bs3 02/14 15:06 Order name: Urine Microscopic Only; Complete Time: 15:41 EDMS 02/14 13:04 Order name: US Pelvis Complete bs3 02/14 13:07 Order name: Urinary Bladder; Complete Time: 14:34 EDMS 02/14 14:59 Order name: CT Abd/Pelvis - IV Contrast Only; Complete Time: 15:41 bs3 Administered Medications: 15:24 Drug: Ondansetron IVP 4 mg Route: IVP; Site: left antecubital; bp 15:24 Drug: Acetaminophen PO 500 mg Route: PO; bp 16:15 Drug: NS 0.9% IV 500 ml Route: IV; Rate: bolus; Site: left antecubital; bp 16:15 Drug: Ondansetron IVP 4 mg Route: IVP; Site: left antecubital; bp Disposition Summary: 02/14/23 16:41 Discharge Ordered Location: Home bs3 Problem: new bs3 Symptoms: have improved bs3 Condition: Stable bs3 Diagnosis - Gross hematuria bs3 Followup: bs3 - With: Jamie Hillman MD - When: 5 - 6 days - Reason: Further diagnostic work-up Discharge Instructions: - Discharge Summary Sheet bs3 - Hematuria, Adult bs3 Forms: - Medication Reconciliation Form bs3 - Thank You Letter bs3 - Antibiotic Education bs3 - Prescription Opioid Use bs3 Prescriptions: - ondansetron 8 mg Oral tablet,disintegrating - take 1 tablet by ORAL route every 8 hours; 12 tablet; Refills: 0, Product bs3 Selection Permitted Signatures: Dispatcher [employer] EDKvng Gil, RN RN Skyla Huddleston RN RN vg1 Fadi Pelayo MD MD bs3 Corrections: (The following items were deleted from the chart) 15: 14:57 Abdomen Pelvis Wo Con+CT.RAD.BRZ ordered. EDMS EDMS 15:07 12:58 Urinalysis+U.LAB.BRZ ordered. EDMS EDMS
--- NOTE | 2023-02-14 16:41 | ER ---
Nurse's Notes [facility] Name: Memo Loredo Age: 87 yrs Sex: Male : 1935 Arrival Date: 02/14/2023 Time: 12:55 Bed 4 Private MD: Diagnosis: Gross hematuria Presentation: 02/14 13:17 Chief complaint: Patient states: noticed blood in urine today, stated urine frequency, vg1 denies burning upon urination or ABD pain. Coronavirus screen: Vaccine status: Patient reports receiving the 2nd dose of the covid vaccine. Client denies travel out of the [place] in the last 14 days. Ebola Screen: Patient negative for fever greater than or equal to 101.5 degrees Fahrenheit, and additional compatible Ebola Virus Disease symptoms Patient denies exposure to infectious person. Patient denies travel to an Ebola-affected area in the 21 days before illness onset. Initial Sepsis Screen: Does the patient meet any 2 criteria? No. Patient's initial sepsis screen is negative. Does the patient have a suspected source of infection? No. Patient's initial sepsis screen is negative. Risk Assessment: Do you want to hurt yourself or someone else? Patient reports no desire to harm self or others. Onset of symptoms was February 14, 2023. 13:17 Method Of Arrival: Ambulatory vg1 13:17 Acuity: JOANNE 3 vg1 Triage Assessment: 13:19 General: Appears in no apparent distress. comfortable, Behavior is calm, cooperative. vg1 Pain: Denies pain. : Reports frequency and blood in the urine. Historical: - Allergies: 13:19 Cefuroxime; vg1 13:19 Morphine; vg1 13:19 PENICILLINS; vg1 13:19 Sulfa (Sulfonamide Antibiotics); vg1 - PMHx: 13:19 Atrial Fib; Hypertension; vg1 - Immunization history:: Client reports receiving the 2nd dose of the Covid vaccine. - Social history:: Smoking status: Patient/guardian denies using tobacco. Screenin:43 [facility] ED Fall Risk Assessment (Adult) Score/Fall Risk Level 0 - 2 = Low Risk hb Oriented to surroundings, Maintained a safe environment, Educated pt \T\ family on fall prevention, incl call for assistance when getting out of bed. Abuse screen: Denies threats or abuse. Denies injuries from another. Nutritional screening: No deficits noted. Tuberculosis screening: No symptoms or risk factors identified. Assessment: 14:43 General: Appears in no apparent distress. Behavior is calm, cooperative. Pain: Denies hb pain. Neuro: Level of Consciousness is awake, alert, obeys commands, Oriented to person, place, time, situation. Cardiovascular: Patient's skin is warm and dry. Respiratory: Respiratory effort is even, unlabored, Respiratory pattern is regular, symmetrical. GI: No signs and/or symptoms were reported involving the gastrointestinal system. : Reports blood in urine. EENT: No signs and/or symptoms were reported regarding the EENT system. Derm: Skin is pink, warm \T\ dry. Musculoskeletal: No signs and/or symptoms reported regarding the musculoskeletal system. Vital Signs: 13:17 BP 141 / 72; Pulse 66; Resp 16; Temp 98.2(O); Pulse Ox 97% on R/A; Weight 97.52 kg; vg1 Height 5 ft. 9 in. ; Pain 0/10; 13:17 Body Mass Index 31.75 (97.52 kg, 175.26 cm) vg1 13:17 Pain Scale: Adult vg1 ED Course: 12:56 Patient arrived in ED. ts1 12:57 Fadi Pelayo MD is Attending Physician. bs3 13:19 Triage completed. vg1 13:19 Arm band placed on. vg1 13:33 Kvng Wilkins, BILLY is Primary Nurse. bp 13:42 Urinary Bladder In Process Unspecified. EDMS 14:43 Patient has correct armband on for positive identification. hb 15:15 CT Abd/Pelvis - IV Contrast Only In Process Unspecified. EDMS 16:40 Jamie Hillman MD is Referral Physician. bs3 Administered Medications: 15:24 Drug: Ondansetron IVP 4 mg Route: IVP; Site: left antecubital; bp 15:24 Drug: Acetaminophen PO 500 mg Route: PO; bp 16:15 Drug: NS 0.9% IV 500 ml Route: IV; Rate: bolus; Site: left antecubital; bp 16:15 Drug: Ondansetron IVP 4 mg Route: IVP; Site: left antecubital; bp Medication: 14:43 VIS not applicable for this client. hb Outcome: 16:41 Discharge ordered by . bs3 17:20 Patient left the ED. hb Signatures: Dispatcher [employer] Sayra Angeles, BILLY RN hb Kvng Wilkins, RN RN bp Skyla Roper RN RN vg1 Fadi Pelayo MD MD bs3 Ivett Gomez PAS PAS ts1
[2023-02-14 18:01] VITALS: BP 141/72; TEMP 98.2; O2SAT 97
== END 2023-02-14 17:20 | disposition home or self-care (01) ==
LOC: ER 12:55
DX: R31.0 Gross hematuria (principal); R11.0 Nausea; I10 Essential (primary) hypertension; I48.91 Unspecified atrial fibrillation; Z79.01 Long term (current) use of anticoagulants; Z88.0 Allergy status to penicillin; Z88.2 Allergy status to sulfonamides; Z88.5 Allergy status to narcotic agent; Z88.8 Allergy status to other drugs, medicaments and biological substances
CPT/HCPCS: 85025; 80048; 36415; 85610; 81015; 74177; 76857; 96374; 99284; Q9967; J2405 ×2; J7040

== ENCOUNTER 2023-04-01 06:41 | Day surgery (SDC) | payer OTHER ==
--- NOTE | 2023-03-19 20:10 | RAD REPORT ---
EXAM DESCRIPTION: RAD - Chest Pa And Lat (2 Views) - 03/19/2023 3:43 pm CLINICAL HISTORY: pre op for surgery. Hypertension COMPARISON: Chest Single View dated 06/14/2020; Chest Pa And Lat (2 Views) dated 02/05/2016; Chest Sing le View dated 01/22/2016; CHEST SINGLE VIEW dated 03/15/2015 TECHNIQUE: PA and lateral views of the chest were obtained. FINDINGS: The lungs are clear. Left basilar atelectasis, stable. Heart size is normal and central va sculature is within normal limits. No pleural effusion or pneumothorax seen. No acute bony finding no valorie. IMPRESSION: No acute cardiopulmonary process.
[2023-04-01] MEDS ORDERED: Ringers Lactate 1,000 ML IV ONE (07:11)
[2023-04-01] MEDS ORDERED: CLINDAMYCIN 600MG/D5W 50 ML IV ONE (07:12)
[2023-04-01 07:24] LABS: Protime INR 1.25
[2023-04-01] MEDS: Gentamicin Inj 200 MG in NA CHLORIDE 0.9% 100 ML IV SCH ×2 (08:00→09:11)
[2023-04-01] MEDS ORDERED: FENTANYL CITR 100 MCG/2 ML ONE (08:49)
[2023-04-01] MEDS ORDERED: LIDOCAINE 1% MPF 5 ML VIAL ONE (08:49)
[2023-04-01] MEDS ORDERED: propofoL 200 MG/20 ML VIAL IV ONE (08:49)
[2023-04-01] MEDS ORDERED: KETOROLAC 30 MG/ML INJ ONE (08:50)
[2023-04-01] MEDS ORDERED: ONDANSETRON 4 MG/2 ML VIAL ONE (08:50)
[2023-04-01] MEDS ORDERED: dexAMETHasone 10 MG/ML VIAL ONE (08:50)
[2023-04-01] MEDS ORDERED: GLYCOPYRROLATE 0.2 MG/ML SYR ONE (09:23)
[2023-04-01] MEDS ORDERED: Mastisol Adhesive Liq ONE (09:49)
[2023-04-01 10:25] VITALS: TEMP 97.3; O2SAT 97
[2023-04-01] MEDS ORDERED: PHENAZOPYRIDINE 100MG TAB PO ONE ×2 (10:37→11:14)
[2023-04-01] MEDS ORDERED: CODEINE 30MG/APAP 300MG TAB PO PRN (10:37)
[2023-04-01] MEDS ORDERED: TRAMADOL 37.5mg/APAP 325mg PER TAB PO ONE (10:40)
[2023-04-01 11:00] VITALS: BP 119/62
[2023-04-01] MEDS ORDERED: TRAMADOL 37.5mg/APAP 325mg PER TAB ONE (11:14)
--- NOTE | 2023-04-01 11:52 | OP ---
Surgeon: KIM KOHLER Preoperative Diagnoses: 1. Right hydronephrosis. 2. Right distal ureteral lesion. Postoperative Diagnoses: 1. Right hydronephrosis. 2. Right distal ureteral lesion. 3. Right mild UPJ obstruction. 4. Right distal ureteral erythema. 5. Meatal stenosis. Principal Procedures: 1. Cystoscopy with right retrograde pyelography. 2. Right ureteroscopy with distal ureteral brush biopsy. 3. Right tethered ureteral stent placement. 4. Meatal dilation using sounds. Indication For Procedure: Mr. Loredo is an 87-year-old gentleman, who presented to the [facility] after an episode of gross hematuria. He does take Coumadin for atrial fibrillation, and he underwent evaluation including cystoscopy and upper tract CT urography which saw some distal ureteral calcification and some mild right-sided hydronephrosis. As a result, upper tract definitive evaluation was required. Procedure In Detail: The patient was consented in the preoperative holding area before being transferred to the operative suite where general anesthesia was induced. He was given clindamycin and gentamicin IV antimicrobial prophylaxis and pneumo boots were provided for DVT prophylaxis. He was placed in the lithotomy position, padded and secured to the table appropriately, and his genitalia was prepped with Hibiclens and draped in standard fashion. The case was begun attempting to place a 22-Salvadorean rigid cystoscope, but this was aborted due to the presence of meatal stenosis. As a result, I employed urethral sounds to dilate the meatus from 18-Salvadorean to 26-Salvadorean with relative ease. After dilating the meatus, I was able to pass a 22-Salvadorean cystoscope via the urethra and into his bladder with ease. I decompressed his bladder of fluid and urine, and then refilled it with sterile saline identifying the right ureteral orifice and cannulating it using the tip of the Sensor wire and a 5-Salvadorean ureteral access catheter. Right retrograde pyelography: Using fluoroscopic guidance, a 70:30 mixture of Omnipaque and saline was injected via the 5-Salvadorean ureteral access catheter and did propagate from the distal into the mid and proximal ureter before entering the renal pelvis and eventually delineating the calyces. The infundibulo-calyceal distribution was completely normal without any sign of caliectasis or filling defect, but there were signs of [id number] pelviectasis. There was some suggestion of possible slight inferior flap UPJ obstruction, but no distal ureteral filling defect was observed either. As a result, given the imaging findings of calcification in the distal ureter potentially causing obstruction; however, I utilized a dual-lumen catheter to dilate the ureteral orifice over the indwelling safety wire, which I placed after performing the retrograde pyelogram via the 5-Salvadorean ureteral access catheter with a coil of the wire observed in the upper pole of the kidney on the right. I then placed a second TellFi guidewire via the second lumen of the dual-lumen catheter and utilized this to guide entry of the semi-rigid ureteroscope into the ureteral orifice and distal ureter. I navigated the semi-rigid ureteroscope all the way into the proximal ureter just distal to the point of suspected UPJ obstruction, and indeed I noted what appeared to be an inferior intrusion of a flap, fold of mucosa from the medial-inferior, of the proximal ureter potentially causing a degree of ureteropelvic junction obstruction. Additional contrast injected via the ureteroscope confirmed the presence of some slight functional obstruction at that location. I then surveyed down from the proximal into the mid and distal ureter and saw no evidence of any papillary mucosal lesion, foreign body, or stone. Within the distal ureter, there was erythematous patch inferiorly at about the 7 o'clock position, which I could not be certain was due to instrumentation or potentially preexisting. As a result, I utilized a brush biopsy passed via the semi-rigid ureteroscope and extensively brushed the tissue in an effort to sample it. This was then removed along with the ureteroscope after I confirmed the absence of any further distal ureteral lesions or lesions at the ureteral orifice as I scoped the distal ureter on the way out. I then removed the semi-rigid ureteroscope and sent the brush for cytologic analysis. I then back-loaded the cystoscope over the indwelling safety wire and passed a 6-Salvadorean by 24 cm double-J ureteral stent with a coil observed fluoroscopically in the upper pole of the kidney and 1 cystoscopically formed in the bladder. The stent was left on its tether, which was eventually secured to the glans penis using Mastisol and Steri-Strips, after I decompressed the bladder of fluid and urine. The patient was then taken out of the lithotomy position, awakened from general anesthesia, transferred to a stretcher, and then transferred to the recovery room in good condition. Complications: None. Discharge Disposition: He should follow up in Urology Clinic on Friday to have the tethered right ureteral stent removed. Subsequent followup should be established within the next few weeks to review the results of the brush biopsy pathology and to consider MAG-3 Lasix renography to assess for any significant functional obstruction due to the right ureteropelvic junction seen. JUAN/LIZBET Voice ID: [id number] Report ID: [id number] PRESLEY
--- NOTE | 2023-04-01 12:28 | RAD REPORT ---
EXAM DESCRIPTION: RAD - Urethrocystogrphy Retrograde - 04/01/2023 12:11 pm CLINICAL HISTORY: RT STENT PLACEMENT W POSS BIOPSY COMPARISON: None available. FINDINGS: Single fluoro series was sent to PACS, documenting needle positions during an image guided right ureteral stent placed procedure. No radiologist was available for the procedure, nor will any image interpretation he provided. Please refer to the procedural report for additional details. Fluoroscopy time: 0.24 Minutes. IMPRESSION: Documentation of fluoroscopy utilization as above.
== END 2023-04-01 11:33 | disposition home or self-care (01) ==
LOC: OR 06:41
PROVIDERS: ATTEND Urology
PROC: 0T768DZ Dilation of Right Ureter with Intraluminal Device, Via Natural or Artificial Opening Endoscopic (ICD-10-PCS; 2023-04-01)
PROC: 0TB68ZX Excision of Right Ureter, Via Natural or Artificial Opening Endoscopic, Diagnostic (ICD-10-PCS; principal; 2023-04-01 08:00)
DX: N28.9 Disorder of kidney and ureter, unspecified (principal); N13.1 Hydronephrosis with ureteral stricture, not elsewhere classified; N35.911 Unspecified urethral stricture, male, meatal; R31.0 Gross hematuria; R93.41 Abnormal radiologic findings on diagnostic imaging of renal pelvis, ureter, or bladder; I10 Essential (primary) hypertension; I48.11 Longstanding persistent atrial fibrillation; I25.10 Atherosclerotic heart disease of native coronary artery without angina pectoris
CPT/HCPCS: 93005; 87088; 87086; 36415; 88108; 85610; 71046; 74450; 51610; 52354; 52332; J2704; J2001; J1580; J3010; J1100; J2405; J7120

== ENCOUNTER 2023-04-05 20:06 | Emergency (ER) | payer OTHER ==
--- OUTSIDE RECORDS SUMMARY | 2023-04-05 20:12 | XMS REPORT | Continuity of Care Document ---
:1935 Author Organization [facility] t Address [address] [facility] [address] [place] [address] Care Team Providers Name Role Phone [phone] Primary Care Physician Unavailable SYSTEM, PROVIDER NOT IN Attending Clinician Unavailable Gene Garsia Attending Clinician Unavailable Anuradha Hartley LVN Attending Clinician Unavailable Murray COVARRUBIAS, Jose E Jacobson Attending Clinician STEPHANE GALLO Attending Clinician Unavailable Lana Rodriguez MA Attending Clinician Unavailable LEVY TYLER Attending Clinician Unavailable Larry Holliday MD Attending Clinician [phone] Eleuterio Christensen DO Attending Clinician Sil Marsh Attending Clinician SIL GILBERT Attending Clinician Unavailable Doctor Unassigned, [place] Attending Clinician Unavailable Jacob Sebastian OD Attending Clinician Bob Kunz MD Attending Clinician Kaylah Cooley OD Attending Clinician TAZ GALLO Attending Clinician Unavailable Nakia Lara OD Attending Clinician KAYLEE BRAMBILA Attending Clinician Unavailable TAZ GALLO Admitting Clinician Unavailable Payers Payer Name Policy Type Policy Number Effective Date Expiration Date Palomo marquez AETNA MEDICARE PPO [id number] 2021 00:00:00 MEDICARE PLAN PPO [id number] AETNA MEDICARE PART B - [id number] MEDICARE Problems Condition Condition Condition Status Onset Resolution Last Treating Co mments Source Name Details Category Date Date Treatment Clinician Date Other Other Disease Active Methodi chest pain chest pain 11-21 00:00: Hospita 00 l History of History of Disease Active M ethodi GI bleed GI bleed 11-21 00:00: Hospita 00 l Rectal Rectal Disease Active [facility] bleeding bleeding 07-11 00:00: Hospita 00 l Proctitis Proctitis Disease Active Met hodi 07-11 00:00: Hospita 00 l Atheroscle Atheroscle Disease Active Overview : Methodi rosis of rosis of 10-[address] [place] 00:00: g of this Hospita coronary coronary 00 note l artery of artery of might be [place] different heart heart from the without without original. 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 loss loss 4-10 College 00:00: of 00 [...] DRUG Active Rash 2020-0 Univers IN INGREDI 9- ity of 00:00: [place] 00 [facility] [...] 00:00: n 00 Cefuroxi Propensi Active 2018-0 Method i me ty to 6-15 st adverse 00:00: Hospita reaction 00 l s to drug Cefuroxi Propensi Active 2018-[address] [facility] reaction [facility] Center s SULFA Drug Active High Sob 2016-0 [...] MD INGREDI 7-14 Anderso 00:00: n 00 Morphine Propensi Active 0 Redness Metho di ty to 04-[address] adverse 00:00: his Hospita reaction 00 arm.Redne l s to ss going drug up his arm.Redne ss going up his arm. Penicill Propensi Active Rash 0 Method i ins ty to 04-25 st adverse 00:00: Hospita reaction 00 l s to drug Sulfa Propensi Active Shortness Of 0 Me thodi (Sulfona ty to Breath 7-14 st mide adverse 00:00: Hospita Antibiot reaction 00 l ics) s to drug SULFA Drug Active High Sob 2016-0 MD [...] 00:00: n 00 Morphine Propensi Active Redness [facility] adverse 00:[facility]: his arm. Medical reaction 00 Center s Penicill Propensi Active Rash [facility] 04[facility] adverse 00:[facility]: Medical reaction 00 Center s Sulfa Propensi Active Shortness Of [address] (Sulfona ty to Breath -14 [facility] mide adverse 00:00: Medical Antibiot reaction 00 Center ics) s MORPHINE DRUG Active High 2015-0 MD INGREDI 7-14 Anderso 00:00: n 00 Opioid Propensi Active 2014-[address] [facility] Analgesi ty to 0-02 College cs adverse 00:00: of reaction 00 Medicin s to e drug Opioids Propensi Active 2014-10 Methodi - ty to 0-02 st Morphine adverse 00:00: Hospita Analogue reaction 00 l s s to drug Penicill Propensi Active [facility] in G ty to 4-10 College Potassiu adverse 00:00: of m reaction 00 Medicin s to e drug Sulfa Propensi Active [facility] Antibiot ty to 4-10 [place] ics adverse 00:00: of reaction 00 Medicin s to e drug Sulfasal Propensi Active Method i azine ty to 4-10 st adverse 00:00: Hospita reaction 00 l s to drug NO KNOWN Drug Active Univers ALLERGIE Class ity of S [facility] Family History Family Member Diagnosis Comments Start Date Stop Date Source Natural father Colon cancer [facility] Natural father [facility] Social History Social Habit Start Date Stop Date Quantity Comments Source Exposure to Not sure University of SARS-CoV-2 (event) [facility] Gender identity [facility] Sexual orientation [facility] History of Social 2023-03-23 2023-03-[address] function 00:00:00 00:00:00 Hospital Cigarettes smoked 2019-10-28 2019-10-[address] current (pack per 00:00:00 00:00:00 Hospita l day) - Reported Cigarette 2019-10-28 2019-10-28 [facility] 00:00[facility]00 00:00:00 Hospital Tobacco use and 2019-10-28 2019-10-28 Smokeless [facility] exposure 00:00:00 00:00:00 tobacco non-user Hospital Alcohol intake 2018-05-11 2018-05-11 Current HUNG Gordon es 00:00:00 00:00:00 non-drinker of Medical Ce nter alcohol (finding) History of tobacco 1973-10-13 Smoker [facility] 00:00:00 Medicine Sex Ass[birth year] At [birth year] H[facility] Dacosta kes 00:00:00 00:00:00 [facility] Center Smoking Status Start Date Stop Date Source Unknown if ever smoked [facility] Ex-smoker 2019-10-28 00:00:00 2019-10-28 00:00:00 [facility] Medications Ordered Filled Start Stop Current Ordering Indication Dosage Frequency Signature Comments Components Source Medication Medication Date Date Medication? Clinician (SIG) Name Name MULTIVITAMI Yes 1{tbl} Take 1 Me thodi N ORAL 6-[address] 08:25: mouth. Hospita 06 l calcium Yes 1200mg Take 1,200 Me thodi carb-vitami 6-[address] n D3-vit K2 08:25: mouth. Hosp josé 600 06 l mg-1,000 unit-90 mcg tablet warfarin 2023-0 Yes 7.5mg Take 1 Method i (COUMADIN) 6-[address] 7.5 MG 08:25: (7.5 mg Hospita tablet 06 total) by l mouth. Taking for 6 days vitamins 2023-0 Yes Q.5D Take by Method i A,C,E-zinc- 6-[address] copper 08:25: (two) Hospita (ICAPS 06 times a l AREDS) day. 14,[phone]- 200 unit-mg-uni t capsule LISINOPRIL- 2022-0 Yes 1{tbl} Q.5D Take 1 Me thodi HCTZ 6-[address] 20-12.5 MG 08:25: mouth 2 Hosp josé COMBO DOSE 06 (two) l times a day. lansoprazol 3-0 Yes 30mg QD Take 1 Meth breanna e 6-[address] (PREVACID) 08:25: (30 mg Hospi ta 30 MG 06 total) by l capsule mouth daily. psyllium 2022-0 Yes Take by Method i husk 6-[address] (METAMUCIL 08:25: tsp. daily H ospita ORAL) 06 l vit 3-[address] Methodi B2-niacin-B [address] [id number]-[id number] 08:25: tongue. Hos maurice nt (B 06 l COMPLEX) 1.7-20-2-1. 2 mg/mL liquid cholecalcif 3-0 Yes 2000U QD Take 1 Met hodi dickson, 6-[address] vitamin D3, 08:25: (2,000 Hosp josé (VITAMIN 06 Units l D3) 2,000 total) by unit tablet mouth daily. magnesium 2023-0 Yes 400mg Q.[id number] Take 1 Methodi oxide 4-[id number] (MAG-OX) 00:00: 3D (400 mg Hospit a 400 mg 00 total) by l (241.3 mg mouth 3 magnesium) (three) tablet times a day. warfarin 2022-0 Yes TAKE 1 & Metho di (COUMADIN) 2-03 1/[address] 5 MG tablet 00:00: DAYS A Hosp josé 00 WEEK AND 1 l TAB ONE DAY A WEEK warfarin 2022-0 Yes TAKE 1 & Metho di (COUMADIN) 2-03 1/[address] 5 MG tablet 00:00: DAYS A Hosp josé 00 WEEK AND 1 l TAB ONE DAY A WEEK isosorbide Yes TAKE 1 Metho di mononitrate 1-23 TABLET BY (IMDUR) 30 00:00: MOUTH Hospit a MG 24 hr 00 EVERY DAY l tablet IN THE MORNING isosorbide Yes TAKE 1 Metho di mononitrate 1-23 TABLET BY (IMDUR) 30 00:00: MOUTH Hospit a MG 24 hr 00 EVERY DAY l tablet IN THE MORNING atorvastati Yes TAKE 1 Meth breanna n (LIPITOR) 9-[address] 40 mg 00:00: MOUTH Hospita tablet 00 EVERY DAY l atorvastati Yes TAKE 1 Meth breanna n (LIPITOR) 9-[address] 40 mg 00:00: MOUTH Hospita tablet 00 EVERY DAY l enoxaparin Yes Patient to Stef rodarte (Lovenox) 05-[address] 100 mg/mL 00:00: 0.95mg/ml Hos maurice syringe 00 SQ in l abdomen twice a day or as directed by MD office enoxaparin 2022- No Patient to Kavonanette (Lovenox) 05-11 06-[address] 100 mg/mL 00:00: 00:00 0.95mg/ml Ho spita syringe 00 :00 SQ in l abdomen twice a day or as directed by MD office warfarin Yes TAKE ONE Metho di (COUMADIN) 04-[address] 5 MG tablet 00:00: HALF Hospit a 00 TABLET l DAILY OR DIRECTED BY MD OFFICE warfarin Yes TAKE ONE Metho di (COUMADIN) 7-[address] 5 MG tablet 00:00: HALF Hospit a 00 TABLET l DAILY OR DIRECTED BY MD OFFICE isosorbide 2020-10- No TAKE 1 Meth breanna mononitrate 2-02 11- TABLET BY (IMDUR) 30 00:00: 00:00 MOUTH Hospi ta MG 24 hr 00 :00 EVERY l tablet MORNING isosorbide 2020-10- No TAKE 1 Meth breanna mononitrate 2-02 11-[address] (IMDUR) 30 00:00: 00:00 MOUTH Hospi ta MG 24 hr 00 :00 EVERY l tablet MORNING mesalamine 2020-10 Yes 1 Methodi (CANASA) 0-[address] 1000 MG 00:00: y at Hospita suppository 00 bedtime l Rectal Once a day atorvastati 2021- No TAKE 1 Met hodi n (LIPITOR) 04-06- TABLET BY st 40 mg 00:00: 00:00 MOUTH Hospita tablet 00 :00 EVERY DAY l atorvastati 2021- No TAKE 1 Met hodi n (LIPITOR) 04-[address] 40 mg 00:00: 00:00 MOUTH Hospita tablet 00 :00 EVERY DAY l warfarin 2021- No Take one Meth breanna (COUMADIN) 03-05- and one st 5 MG tablet 00:00: 00:00 half Hospi ta 00 :00 tablet l daily or as directed by MD office warfarin 2021- No Take one Meth breanna (COUMADIN) 03-[address] 5 MG tablet 00:00: 00:00 half Hospi ta 00 :00 tablet l daily or as directed by MD office doxazosin Yes TAKE 1 Method i (CARDURA) 4 4-[address] MG tablet 00:00: MOUTH Hospita 00 EVERY DAY l doxazosin 2022- No TAKE 1 Metho di (CARDURA) 4 4-05 06-[address] MG tablet 00:00: 00:00 MOUTH Hospit a 00 :00 EVERY DAY l MULTIVITAMI Yes 1{tbl} Take [...] 02 (two) l times a day. lansoprazol Yes 30mg QD Take 30 mg Methodi e 2-[address] (PREVACID) 09:35: daily. Hospi ta 30 MG 02 l capsule psyllium Yes Take by Method i husk 2-[address] (METAMUCIL 09:35: tsp. daily H ospita ORAL) [address] Methodi B2-niacin-B 11-[address] [id number] 09:35: tongue. Hos maurice nth (B 02 l COMPLEX) 1.7-20-2-1. 2 mg/mL liquid cholecalcif Yes 2000U QD Take 2,000 Methodi dickson, 2-[address] vitamin D3, 09:35: mouth Hospi ta (VITAMIN 02 daily. l D3) 2,000 unit tablet amLODIPine 2019-10 Yes TAKE 1 Metho di (NORVASC) 5 2-[address] mg tablet 00:00: MOUTH Hospita 00 EVERY DAY l amLODIPine 2019-10- No TAKE 1 Meth beranna (NORVASC) 5 2-17 06-[address] mg tablet 00:00: 00:00 MOUTH Hospit a 00 :00 EVERY DAY l MULTIVITAMI Yes 1{tbl} Take 1 Un karlie N ORAL 9-11 tablet by ity of 15:58: mouth. [address] MULTIVITAMI 2019-0 Yes 1{tbl} Take 1 Un karlie N ORAL 9-11 tablet by ity of 15:58: mouth. [address] MULTIVITAMI Yes 1{tbl} Take 1 Un karlie N ORAL 9-11 tablet by ity of 15:58: mouth. [place] [facility] MULTIVITAMI 2020-0 Yes 1{tbl} Take 1 Un karlie N ORAL 9-11 tablet by ity of 15:58: mouth. [place] [facility] cyanocobala 2020-[address] Uni vers min, 9-11 5,000 mcg ity of vitamin 15:57: under the [place] B-12, 16 tongue. Medical (VITAMIN Branch B-12) 5,000 mcg Subl Cholecalcif 2020-0 Yes Take by Uni vers dickson, 9-11 mouth. ity of Vitamin D3, 15:57: [place] (VITAMIN 16 Medical D3) 50 mcg Branch (2,000 unit) tablet docusate 2020-0 Yes 250mg Take 250 Univ ers sodium 9-11 mg by ity of (STOOL 15:57: mouth [place] SOFTENER) 16 daily. Medical 250 mg Branch capsule cyanocobala 2020-[address] Uni vers min, 9-11 5,000 mcg ity of vitamin 15:57: under the [place] B-12, 16 tongue. Medical (VITAMIN Branch B-12) 5,000 mcg Subl Cholecalcif 2020-0 Yes Take by Uni vers dickson, 9-11 mouth. ity of Vitamin D3, 15:57: [place] (VITAMIN 16 Medical D3) 50 mcg Branch (2,000 unit) tablet docusate 2020-0 Yes 250mg Take 250 Univ ers sodium 9-11 mg by ity of (STOOL 15:57: mouth [place] SOFTENER) 16 daily. Medical 250 mg Branch capsule cyanocobala 2020-[address] Uni vers min, 9-11 5,000 mcg ity of vitamin 15:57: under the [place] B-12, 16 tongue. Medical (VITAMIN Branch B-12) 5,000 mcg Subl Cholecalcif 2020-0 Yes Take by Uni vers dickson, 9-11 mouth. ity of Vitamin D3, 15:57: [place] (VITAMIN 16 Medical D3) 50 mcg Branch (2,000 unit) tablet docusate 2020-0 Yes 250mg Take 250 Univ ers sodium 9-11 mg by ity of (STOOL 15:57: mouth [place] SOFTENER) 16 daily. Medical 250 mg Branch capsule cyanocobala 2020-[address] Uni vers min, 9-11 5,000 mcg ity of vitamin 15:57: under the [place] B-12, 16 tongue. Medical (VITAMIN Branch B-12) 5,000 mcg Subl Cholecalcif 2020-0 Yes Take by Uni vers dickson, 9-11 mouth. ity of Vitamin D3, 15:57: [place] (VITAMIN 16 Medical D3) 50 mcg Branch (2,000 unit) tablet docusate 2020-0 Yes 250mg Take 250 Univ ers sodium 9-11 mg by ity of (STOOL 15:57: mouth [place] SOFTENER) 16 daily. Medical 250 mg Branch capsule lisinopriL 2020-0 Yes 20mg Take 20 mg U nivers 20 mg 9-11 by mouth. ity of tablet 15:44: [address] aspirin 81 2020-0 Yes 81mg Take 81 mg U nivers mg EC 9-11 by mouth. ity of tablet 15:44: [address] doxazosin 4 2020-0 Yes 4mg Take 4 mg U nivers mg tablet 9-11 by mouth. ity o f 15:44: [address] fluticasone 2020-0 Yes 1{spray Use 1 Un karlie propionate 9-11 } [place] in ity o f 50 15:44: each [place] mcg/actuati 24 nostril. Medi germania on nasal Branch spray lisinopriL 2020-0 Yes 20mg Take 20 mg U nivers 20 mg 9-11 by mouth. ity of tablet 15:44: [address] aspirin 81 2020-0 Yes 81mg Take 81 mg U nivers mg EC 9-11 by mouth. ity of tablet 15:44: [address] doxazosin 4 2020-0 Yes 4mg Take 4 mg U nivers mg tablet 9-11 by mouth. ity o f 15:44: [address] fluticasone 2020-0 Yes 1{spray Use 1 Un karlie propionate 9-11 } [place] in ity o f 50 15:44: each [place] mcg/actuati 24 nostril. Medi germania on nasal Branch spray lisinopriL 2020-0 Yes 20mg Take 20 mg U nivers 20 mg 9-11 by mouth. ity of tablet 15:44: [address] aspirin 81 2020-0 Yes 81mg Take 81 mg U nivers mg EC 9-11 by mouth. ity of tablet 15:44: [address] doxazosin 4 2020-0 Yes 4mg Take 4 mg U nivers mg tablet 9-11 by mouth. ity o f 15:44: [address] Branch fluticasone 2020-0 Yes 1{spray Use 1 Un karlie propionate 9-11 } [place] in ity o f 50 15:44: each [place] mcg/actuati 24 nostril. Medi germania on nasal Branch spray lisinopriL 2020-0 Yes 20mg Take 20 mg U nivers 20 mg 9-11 by mouth. ity of tablet 15:44: [address] aspirin 81 2020-0 Yes 81mg Take 81 mg U nivers mg EC 9-11 by mouth. ity of tablet 15:44: [address] doxazosin 4 2020-0 Yes 4mg Take 4 mg U nivers mg tablet 9-11 by mouth. ity o f 15:44: [address] fluticasone 2020-0 Yes 1{spray Use 1 Un karlie propionate 9-11 } [place] in ity o f 50 15:44: each [place] mcg/actuati 24 nostril. Medi germania on nasal Branch spray warfarin 2020-0 Yes 7.5mg Take 7.5 Univ ers 7.5 mg 9-11 mg by ity of tablet 15:42: mouth. [address] warfarin 2020-0 Yes 7.5mg Take 7.5 Univ ers 7.5 mg 9-11 mg by ity of tablet 15:42: mouth. [address] warfarin 2020-0 Yes 7.5mg Take 7.5 Univ ers 7.5 mg 9-11 mg by ity of tablet 15:42: mouth. [address] warfarin 2020-0 Yes 7.5mg Take 7.5 Univ ers 7.5 mg 9-11 mg by ity of tablet 15:42: mouth. [address] metoprolol 2020-0 Yes 12.5mg Take 12.5 Univers succinate 8-25 mg by ity of XL 25 mg 24 00:00: mouth [place] hr tablet [address] [facility] metoprolol 2020-0 Yes 12.5mg Take 12.5 Univers succinate 8-25 mg by ity of XL 25 mg 24 00:00: mouth [place] hr tablet [address] [facility] metoprolol 2020-0 Yes 12.5mg Take 12.5 Univers succinate 8-25 mg by ity of XL 25 mg 24 00:00: mouth [place] hr tablet 00 daily. Medical Branch metoprolol 2020-0 Yes 12.5mg Take 12.5 Univers succinate 8-25 mg by ity of XL 25 mg 24 00:00: mouth [place] hr tablet 00 daily. Medical Branch tamsulosin 2020-0 Yes .4mg QD Take 0.4 Met hodi (FLOMAX) 8-[address] 0.4 mg 00:00: mouth Hospita capsule 00 daily. l tamsulosin 2020-0 Yes .4mg QD Take 1 Metho di (FLOMAX) 8-[address] 0.4 mg 00:00: (0.4 mg Hospita capsule 00 total) by l mouth daily. tamsulosin 2020-0 Yes .4mg Take 0.4 Uni vers 0.4 mg 24 8-07 mg by ity of hr capsule 00:00: mouth. Medical Branch tamsulosin 2020-0 Yes .4mg Take 0.4 Uni vers 0.4 mg 24 8-07 mg by ity of hr capsule 00:00: mouth. Medical Branch tamsulosin 2020-0 Yes .4mg Take 0.4 Uni vers 0.4 mg 24 8-07 mg by ity of hr capsule 00:00: mouth. [place] [facility] tamsulosin 2020-0 Yes .4mg Take 0.4 Uni vers 0.4 mg 24 8-07 mg by ity of hr capsule 00:00: mouth. [place] [facility] olopatadine 2020-[address] [facility] HCl 05-09 [place] ([facility]) 21:34: of 0.2 % 51 Medicin ophthalmic e solution atorvastati 2020-0 Yes 20mg Take [address] [facility] n (LIPITOR) 05-09 by mouth Beto ege 20 MG 21:34: daily. of tablet 51 Medicin e Calcium-Mag 2020-0 Yes 1200mg Take 1,[address] [facility] nesium-Leanna 7- mg by [place] min D 21:34: mouth. of (CALCIUM 51 Medicin 1200+D3 OR) e Cholecalcif 2020-0 Yes Take by [facility] dickson 05-09 mouth. [place] (VITAMIN 21:34: of D3) 2000 51 Medicin UNITS CAPS e Cyanocobala 2020-0 Yes Take by [place] kamilla min 05-09 mouth. [place] (VITAMIN 21:34: of B-12 OR) 51 Medicin [...] Tab B aylor Vitamin 7-28 by mouth. [place] (MULTI-LEANNA 21:34: of MINS) TABS 51 Medicin e Calcium-Vit 2020-0 Yes 1200mg Take 1,[address] [facility] garsia 7-28 mg by [place] D-Vitamin K 21:34: mouth. of (CALCIUM+ME 51 Medicin NAQ7) e 600-1000-90 MG-UNT-MCG TABS olopatadine 2020-0 Yes [place] HCl 7-28 [place] ([facility]) 21:34: of 0.2 % 51 Medicin ophthalmic e solution atorvastati 2020-0 Yes 20mg Take [address] [facility] n (LIPITOR) 7-28 by mouth Beto ege 20 MG 21:34: daily. of tablet 51 Medicin e Calcium-Mag 2020-0 Yes 1200mg Take 1,[address] [facility] nesium-Leanna 7-28 mg by [place] min D 21:34: mouth. of (CALCIUM 51 Medicin 1200+D3 OR) e Cholecalcif 2020-0 Yes Take by [place] kamilla dickson 7-28 mouth. [place] (VITAMIN 21:34: of D3) 2000 51 Medicin UNITS CAPS e Cyanocobala 2020-0 Yes Take by [place] kamilla min 7-28 mouth. [place] (VITAMIN 21:34: of B-12 OR) 51 Medicin [...] Tab B aylor Vitamin 7-28 by mouth. [place] (MULTI-LEANNA 21:34: of MINS) TABS 51 Medicin e Calcium-Vit 2019-0 Yes 1200mg Take 1,200 [place] garsia 7-28 mg by [place] D-Vitamin K 21:34: mouth. of (CALCIUM+ME 51 Medicin NAQ7) e 600-1000-90 MG-UNT-MCG TABS Calcium-Vit 2019-0 Yes 1200mg Take 1,[address] [facility] garsia 7-16 mg by [place] D-Vitamin K 13:29: mouth. of (CALCIUM+ME 01 Medicin NAQ7) e 600-1000-90 MG-UNT-MCG TABS lansoprazol 0 2020- No 30mg Take 30 mg [place] e 04-27 by mouth [place] (PREVACID) 13:29: 00:00 daily. of 30 MG 01 :00 Medicin capsule e metoprolol 0 2020- No 50mg Take 50 mg [place] (TOPROL-XL) 04-27 by mouth Col lege 50 MG XL 13:29: 00:00 daily. of tablet 01 :00 Medicin e warfarin 0 2020- No 5mg Take 5 mg [place] kamilla (COUMADIN) 04-27 by mouth Beto ege 5 MG tablet 13:29: 00:00 daily. of 01 :00 Friday Medicin and Friday e Loratadine 2019-0 2020- No Take by [place] kamilla 10 MG CAPS 04-27 mouth. Colleg e 13:29: 00:00 of 01 :00 Medicin e cycloSPORIN 0 2020- No 1[drp] 1 Drop two [place] E 04-27 times [place] (RESTASIS) 13:29: 00:00 daily. of 0.05 % 01 :00 Medicin ophthalmic e emulsion Ascorbic 2020- No Take by [facility] Acid 04-27 mouth. [place] (VITAMIN C 13:29: 00:00 of OR) 01 :00 Medicin e FERROCITE 2019-0 Yes 1{tbl} Take 1 Univ ers 324 mg (106 7-08 tablet by ity of mg iron) 00:00: mouth [place] Tab 00 daily. Medical Branch FERROCITE 2019-0 Yes 1{tbl} Take 1 Univ ers 324 [...] Medical Branch FERROCITE 2020-0 Yes TAKE [address] [facility] 324 MG TABS 7-08 TABLET BY Col lege 00:00: MOUTH of 00 EVERY DAY Medicin e FERROCITE 2020-0 Yes TAKE [address] [facility] 324 MG TABS 7-08 TABLET BY Col lege 00:00: MOUTH of 00 EVERY DAY Medicin e FERROCITE 2020-0 Yes TAKE [address] [facility] 324 MG TABS 7-08 TABLET BY Col lege 00:00: MOUTH of 00 EVERY DAY Medicin e Ferrocite 2020-0 Yes 1{tbl} QD Take 1 Meth breanna 324 mg (106 7-[address] mg iron) 00:00: mouth Hospita tablet 00 daily. l Ferrocite 2020-0 Yes 1{tbl} QD Take 1 Meth breanna 324 mg (106 7-[address] mg iron) 00:00: mouth Hospita tablet 00 daily. l amLODIPine 2020-0 Yes 5mg Take 5 mg Un karlie 5 mg tablet 6-14 by mouth ity of 00:00: daily. [place] [facility] amLODIPine 2020-0 Yes 5mg Take 5 mg Un karlie 5 mg tablet 6-14 by mouth ity of 00:00: daily. [place] [facility] amLODIPine 2020-0 Yes 5mg Take 5 mg Un karlie 5 mg tablet 6-14 by mouth ity of 00:00: daily. [place] [facility] amLODIPine 2020-0 Yes 5mg Take 5 mg Un karlie 5 mg tablet 6-14 by mouth ity of 00:00: daily. [place] [facility] atorvastati 2020-0 Yes 40mg 40 mg. Univ ers n 40 mg 4-08 ity of tablet 00:00: [place] [facility] atorvastati 2020-0 Yes 40mg 40 mg. Univ ers n 40 mg 4-08 ity of tablet 00:00: [facility] Branch atorvastati 0 Yes 40mg 40 mg. Univ ers n 40 mg 4-08 ity of tablet 00:00: [facility] Branch atorvastati Yes 40mg 40 mg. Univ ers n 40 mg 4-08 ity of tablet 00:00: [place] [facility] Branch [place]-3 2019- No Take by [facility] Fatty Acids 06-09 mouth four C wilbur (OMEGA-3 15:33: 00:00 times of FISH OIL) 00 :00 daily. Medicin 1200 MG e CAPS clopidogrel 2019- No 75mg Take [address] [facility] (PLAVIX) 75 06-09 by mouth Col lege MG tablet 15:33: 00:00 daily. of 00 :00 Medicin e Calcium 2018- Yes 1{tbl} Take 1 Tab Ba ylor Carb-Cholec 8-28 by mouth. Col lege alciferol 15:32: of (CALCIUM- 58 Medicin TAMIN D) e 500-200 MG-UNIT per tablet Multiple 0 Yes 1{tbl} Take 1 Tab B aylor Vitamin 8-28 by mouth. [place] (MULTI-LEANNA 15:32: of MINS) TABS 58 Medicin e Calcium 2018-0 Yes 1{tbl} Take 1 Tab Ba ylor Carb-Cholec 8-28 by mouth. Col lege alciferol 15:32: of (CALCIUM- 58 Medicin TAMIN D) e 500-200 MG-UNIT per tablet Multiple 2018-0 Yes 1{tbl} Take 1 Tab B aylor Vitamin 8-28 by mouth. [place] (MULTI-LEANNA 15:32: of MINS) TABS 58 Medicin [...] DAY e 20-12.5 MG per tablet lisinopril- 2019-0 Yes TAKE 1 [facility] or hydrochloro 8-02 [...] 00 by mouth l coated daily. tablet aspirin 2022- No 81mg QD Take 1 Methodi (ECOTRIN) 7- 06-06 tablet (81 st 81 MG 00:00: 00:00 mg total) Hospit a enteric 00 :00 by mouth l coated daily. tablet metoprolol 2017-10 Yes 12.5mg QD Take 12.5 [facility] succinate 0-[address] XL 00:00: mouth Hospita (TOPROL-XL) 00 daily. l 25 mg 24 hr tablet metoprolol 2017-10 Yes 12.5mg QD Take 0.5 M ethodi succinate 0-[address] XL 00:00: (12.5 mg Hospita (TOPROL-XL) 00 total) by l 25 mg 24 hr mouth tablet daily. metoprolol Yes 25mg Take 25 mg B aylor (TOPROL-XL) 907 by mouth. Col lege 25 MG XL 00:00: of tablet 00 Medicin e metoprolol Yes 25mg Take 25 mg B aylor (TOPROL-XL) 07 by mouth. Col lege 25 MG XL 00:00: of tablet 00 Medicin e metoprolol Yes 25mg Take 25 mg B aylor (TOPROL-XL) 907 by mouth. Col lege 25 MG XL 00:00: of tablet 00 Medicin e ascorbic Yes 1000mg QD Take 1,[address] acid, 7-30 mg by [facility] vitamin C, 13:32: mouth Medica l (VITAMIN C) 30 daily. Center 1000 MG tablet VIT A/VIT Yes [facility] by [facility]-30 [facility]. [facility] E/ZINC/KENNETH 13:32: Medica l ER (ICAPS 30 Center AREDS ORAL) atorvastati 0 Yes 20mg QD Take [address] [facility] n (LIPITOR) 7-30 by mouth Luke s 20 MG 13:32: daily. Medical tablet 30 Center clopidogrel Yes 75mg QD Take [address] [facility] (PLAVIX) 75 7-30 by mouth Luke s mg tablet 13:32: daily. Medica l 30 Center doxazosin 0 Yes 4mg QD Take [address] [facility] (CARDURA) 4 7-30 by mouth Luke s MG tablet 13:32: nightly. Medi germania 30 Center fluticasone 0 Yes 1{spray QD [address] [facility] (FLONASE) 7-30 } Nasal [facility] 50 13:32: route Medical mcg/actuati 30 daily. Center on nasal spray lisinopril Yes 20mg QD Take [address] (PRINIVIL,Z 7-30 by mouth Luke s ESTRIL) 20 13:32: daily. Medic al MG tablet 30 Center olopatadine Yes Apply to [facility] (PATADAY) 7-30 eye(s). [facility] 0.2 % Drop 13:32: Medical 30 Center lansoprazol 0 Yes 30mg QD Take [address] [facility] e 7-30 by mouth [facility] (PREVACID) 13:32: daily. Medic al 30 MG 30 [place] capsule warfarin Yes 10mg QD Take [address] (COUMADIN) 7-30 by mouth [facility] 10 MG 13:32: daily. Medical tablet 30 Center warfarin 0 Yes 7.5mg QD Take 7.[address] [address] (COUMADIN) 7-30 mg by [facility] 7.5 MG 13:32: mouth Medical tablet 30 daily. [place] diflupredna Yes Apply to [facility] te 7-30 eye(s). [facility] (DUREZOL) 13:32: Medical 0.05 % Drop 30 Center bromfenac 0 Yes Apply to [facility] (PROLENSA) 7-30 eye(s). [facility] 0.07 % Drop 13:32: Medica l 30 Center polymyxin B Yes 1[drp] [address] sulf-trimet 7-30 [facility] hoprim 13:32: Medical (POLYTRIM) 30 Center 10,000 unit- 1 mg/mL Drop omega 2017-0 Yes Take by [facility] 3-dha-epa-f 7-30 mouth. [facility] suhas oil 13:32: Medical (FISH OIL) 30 Center 1,000 mg (120 mg-180 mg) [facility] loratadine 20180 Yes 10mg QD Take [address] (CLARITIN) 7-30 by mouth [facility] 10 mg 13:32: daily. Medical tablet 30 [place] multivitami 20180 Yes 1{tbl} QD Take [address] n per 7-30 tablet by [facility] tablet 13:32: mouth Medical 30 daily. [place] cholecalcif Yes Take by [facility] dickson, 7-30 mouth. LuRenéSim vitamin D3, 13:32: Medica l 2,000 unit 30 Center [facility] cyanocobala 0 Yes 1000ug QD Take 1,[address] min 7-30 mcg by LuRenéSim (VITAMIN 13:32: mouth Medical B-12) 1000 30 daily. [place] MCG tablet calcium 2017-0 Yes 1{tbl} Take [address] carbonate-v 7-30 tablet by Brynn es itamin D3 13:32: mouth 2 Medic al (CALCIUM- 30 (two) Center TAMIN D) times 500 daily with mg(1,250mg) breakfast -200 unit and per tablet dinner. ascorbic 2018-0 Yes 1000mg QD Take 1,[address] acid, 7-30 mg by LuRenéSim vitamin C, 13:32: mouth Medica l (VITAMIN C) 30 daily. [place] 1000 MG tablet VIT A/VIT Yes Take by [facility] S t C/VIT 7-30 mouth. [facility] E/ZINC/KENNETH 13:32: Medica l ER (ICAPS 30 Center AREDS ORAL) atorvastati 2017-0 Yes 20mg QD Take [address] [facility] n (LIPITOR) 7-30 by mouth Luke s 20 MG 13:32: daily. Medical tablet 30 Center clopidogrel 20180 Yes 75mg QD Take [address] [facility] (PLAVIX) 75 7-30 by mouth Luke s mg tablet 13:32: daily. Medica l 30 [place] doxazosin 0 Yes 4mg QD Take [address] [facility] (CARDURA) 4 7-30 by mouth Luke s MG tablet 13:32: nightly. [facility] germania 30 Center fluticasone 2018-0 Yes 1{spray QD [address] [facility] (FLONASE) 7-30 } Nasal [facility] 50 13:32: route Medical mcg/actuati 30 daily. Center on nasal spray atorvastati 0 Yes 20mg QD Take [address] [facility] n (LIPITOR) 7-30 by mouth Luke s 20 MG 13:32: daily. Medical tablet 30 Center clopidogrel 0 Yes 75mg QD Take [address] [facility] (PLAVIX) 75 7-30 by mouth Luke s mg tablet 13:32: daily. Medica l 30 Center doxazosin 0 Yes 4mg QD Take [address] [facility] (CARDURA) 4 7-30 by mouth Luke s MG tablet 13:32: nightly. [facility] germania 30 [place] fluticasone 0 Yes 1{spray QD [address] [facility] (FLONASE) 7-30 } Nasal [facility] 50 13:32: route Medical mcg/actuati 30 daily. Center on nasal spray lisinopril 0 Yes 20mg QD Take [address] (PRINIVIL,Z 7-30 by mouth Luke s ESTRIL) 20 13:32: daily. Medic al MG tablet 30 Center olopatadine 0 Yes Apply to [facility] (PATADAY) 7-30 eye(s). [facility] 0.2 % Drop 13:32: Medical 30 Center lansoprazol 0 Yes 30mg QD Take [address] [facility] e 7-30 by mouth [facility] (PREVACID) 13:32: daily. Medic al 30 MG 30 Center capsule warfarin 0 Yes 10mg QD Take [address] (COUMADIN) 7-30 by mouth [facility] 10 MG 13:32: daily. Medical tablet 30 Center warfarin 20180 Yes 7.5mg QD Take 7.[address] (COUMADIN) 7-30 mg by [facility] 7.5 MG 13:32: mouth Medical tablet 30 daily. [place] diflupredna Yes Apply to [facility] te 7-30 eye(s). [facility] (DUREZOL) 13:32: Medical 0.05 % Drop 30 Center bromfenac 0 Yes Apply to [facility] (PROLENSA) 7-30 eye(s). [facility] 0.07 % Drop 13:32: Medica l 30 Center polymyxin B Yes 1[drp] [address] sulf-trimet 7-30 [facility] hoprim 13:32: Medical (POLYTRIM) 30 Center 10,000 unit- 1 mg/mL Drop omega 0 Yes Take by [facility] 3-dha-epa-f 730 mouth. Greg suhas oil 13:32: Medical (FISH OIL) 30 Center 1,000 mg (120 mg-180 mg) Cap loratadine Yes 10mg QD Take [address] (CLARITIN) 7 by mouth [facility] 10 mg 13:32: daily. Medical tablet 30 Center multivitami Yes 1{tbl} QD Take [address] n per 730 tablet by [facility] tablet 13:32: mouth Medical 30 daily. [place] cholecalcif Yes Take by [facility] dicksno, 7 mouth. TammyRenéSim vitamin D3, 13:32: Medica l 2,000 unit 30 Center [facility] cyanocobala Yes 1000ug QD Take 1,[address] min 7-30 mcg by Greg (VITAMIN 13:32: mouth Medical B-12) 1000 30 daily. [place] MCG tablet calcium Yes 1{tbl} Take [address] carbonate-v 7-30 tablet by Brynn es itamin D3 13:32: mouth 2 Medic al (CALCIUM- 30 (two) Center TAMIN D) times 500 daily with mg(1,250mg) breakfast -200 unit and per tablet dinner. ascorbic 20180 Yes 1000mg QD Take 1,[address] acid, 7-30 mg by [employer] vitamin C, 13:32: mouth Medica l (VITAMIN C) 30 daily. [place] 1000 MG tablet VIT A/VIT Yes Take by [facility] S t C/VIT 7-30 mouth. Greg E/ZINC/KENNETH 13:32: Medica l ER (ICAPS 30 Center AREDS ORAL) lisinopril 0 Yes 20mg QD Take [address] (PRINIVIL,Z 7-30 by mouth Luke s ESTRIL) 20 13:32: daily. Medic al MG tablet 30 Center olopatadine Yes Apply to [facility] (PATADAY) 7-30 eye(s). [facility] 0.2 % Drop 13:32: Medical 30 Center lansoprazol 0 Yes 30mg QD Take [address] [facility] e 7-30 by mouth [facility] (PREVACID) 13:32: daily. Medic al 30 MG 30 Center capsule warfarin Yes 10mg QD Take [address] (COUMADIN) 7-30 by mouth [facility] 10 MG 13:32: daily. Medical tablet 30 Center warfarin 0 Yes 7.5mg QD Take 7.[address] (COUMADIN) 7-30 mg by [facility] 7.5 MG 13:32: mouth Medical tablet 30 daily. [place] diflupredna Yes Apply to [facility] te 7-30 eye(s). [facility] (DUREZOL) 13:32: Medical 0.05 % Drop 30 Center bromfenac Yes Apply to [facility] (PROLENSA) 7-30 eye(s). [facility] 0.07 % Drop 13:32: Medica l 30 Center polymyxin B Yes 1[drp] [address] sulf-trimet 7-30 [facility] hoprim 13:32: Medical (POLYTRIM) 30 [place] 10,000 unit- 1 mg/mL Drop omega Yes Take by [facility] 3-dha-epa-f 7-30 mouth. [facility] shuas oil 13:32: Medical (FISH OIL) 30 Center 1,000 mg (120 mg-180 mg) Cap loratadine Yes 10mg QD Take [address] (CLARITIN) 7-30 by mouth [facility] 10 mg 13:32: daily. Medical tablet 30 [place] multivitami 0 Yes 1{tbl} QD Take [address] n per 7-30 tablet by [facility] tablet 13:32: mouth Medical 30 daily. [place] cholecalcif 0 Yes Take by [facility] dickson, 7-30 mouth. [facility] vitamin D3, 13:32: Medica l 2,000 unit 30 Center Cap cyanocobala 0 Yes 1000ug QD Take 1,[address] min 7-30 mcg by [facility] (VITAMIN 13:32: mouth Medical B-12) 1000 30 daily. [place] MCG tablet calcium 2018-0 Yes 1{tbl} Take [address] carbonate-v 7-30 tablet by Brynn antunez itamin D3 13:32: mouth 2 Medic al (CALCIUM- 30 (two) Center TAMIN D) times 500 daily with mg(1,250mg) breakfast -200 unit and per tablet dinner. diflupredna 2019- No 1[drp] Place [address] [facility] te 05-05- Drop into College (DUREZOL) 00:00: 00:00 the right of 0.05 % 00 :00 eye 3 Medicin ophthalmic times e emulsion daily. diflupredna 2019- No 1[drp] Place [address] [facility] te 03-17 Drop into [place] (DUREZOL) 00:00: 00:00 the left of 0.05 % 00 :00 eye 3 Medicin ophthalmic times e emulsion daily. trimethopri 2019- No 1[drp] Place [address] [facility] m-polymyxin 03-17 Drop into Ut llege b 00:00: 00:00 the left of (POLYTRIM) 00 :00 eye 3 Medicin ophthalmic times e solution daily. PROLENSA 2019- No 1[drp] Apply 1 [place] [facility] 0.07 % 03-17 Drop to [place] ophthalmic 00:00: 00:00 eye daily. of solution 00 :00 Medicin e Nepafenac Yes 1[drp] Place 1 [place] [facility] (ILEVRO) 4-11 Drop into Colleg e 0.3 % SUSP 00:00: the left of 00 eye daily. Medicin e Nepafenac 2017- Yes 1[drp] Place 1 [place] [facility] (ILEVRO) 4-11 Drop into Colleg e 0.3 % SUSP 00:00: the left of 00 eye daily. Medicin e Nepafenac 2017- Yes 1[drp] Place 1 [place] [facility] (ILEVRO) 4-11 Drop into Colleg e 0.3 % SUSP 00:00: the left of 00 eye daily. Medicin e Nepafenac 2017- Yes 1[drp] Place 1 [place] [facility] (ILEVRO) 4-11 Drop into Colleg e 0.3 % SUSP 00:00: the left of 00 eye daily. Medicin e besifloxaci 2019- No 1[drp] Place [address] [facility] n 4-06-09 Drop into [place] (BESIVANCE) 00:00: 00:00 the left o f 0.6 % 00 :00 eye 3 Medicin ophthalmic times e suspension daily. Shake well before instillati on diflupredna 2019- No 1[drp] Place [address] [facility] te 4-06-09 Drop into [place] (DUREZOL) 00:00: 00:00 the left of 0.05 [...] daily. Medicin e Multiple Yes Take by [facility] Vitamins-Mi 9-06 mouth. Colleg e nerals 18:49: of (VITEYES 04 Medicin COMPLETE e OR) doxazosin Yes 4mg Take 4 mg [place] [facility] (CARDURA) 4 -06 by mouth Beto ege MG tablet 18:49: daily. of 04 Medicin e warfarin Yes 7.5mg Take 7.5 [facility] (COUMADIN) 9-06 mg by College 7.5 MG 18:49: mouth of tablet 04 daily. Medicin Mondays, e Friday, Fri, and Friday aspirin 81 Yes 81mg Take 81 mg [facility] MG tablet 06 by mouth Colleg e 18:49: daily. of 04 Medicin e lisinopril Yes 10mg Take 10 mg [facility] (PRINIVIL, 06 by mouth Colle ge ZESTRIL) 10 18:49: two times o f MG tablet 04 daily. Medicin e Multiple Yes Take by [facility] Vitamins-Mi 9-06 mouth. Colleg e nerals 18:49: of (VITEYES 04 Medicin COMPLETE e OR) lansoprazol Yes 30mg Take [address] [facility] e 06-18 by mouth College (PREVACID) 18:49: daily. of 30 MG 04 Medicin capsule e doxazosin Yes 4mg Take 4 mg [place] [facility] (CARDURA) 4 06-18 by mouth Beto ege MG tablet 18:49: daily. of Medicin e warfarin Yes 7.5mg Take 7.5 [facility] (COUMADIN) 06-18 mg by [place] 7.5 MG 18:49: mouth of tablet 04 [...] 18:49: two times o f MG tablet daily. Medicin e Multiple Yes Take by [facility] Vitamins-Mi 06-18 mouth. Colleg e nerals 18:49: of (VITEYES 04 Medicin COMPLETE e OR) Loratadine Yes Take by [place] [facility] 10 MG CAPS 06-18 mouth. [place] 18:49: of 04 Medicin e atorvastati Yes 20mg Take 20 mg [place] n (LIPITOR) 06-18 by mouth Beto ege 20 MG 18:49: daily. of tablet Medicin e Calcium-Mag Yes 1200mg Take 1,[address] [facility] nesium-Leanna 06-18 mg by [place] min D 18:49: mouth. of (CALCIUM 04 Medicin 1200+D3 OR) e Cholecalcif Yes Take by [place] [facility] dickson 06-18 mouth. [place] (VITAMIN 18:49: of D3) 2000 Medicin UNITS CAPS e Cyanocobala Yes Take by [place] [facility] min 06-18 mouth. [place] (VITAMIN 18:49: of B-12 OR) 04 Medicin e Ascorbic Yes Take by [facility] Acid 06-18 mouth. [place] (VITAMIN C 18:49: of OR) 04 Medicin e doxazosin Yes 4mg Take 4 mg [place] [facility] (CARDURA) 4 06-18 by mouth Beto ege MG tablet 18:49: daily. of 04 Medicin e warfarin Yes 7.5mg Take 7.5 [facility] (COUMADIN) 9-06 mg by [place] 7.5 MG 18:49: mouth of tablet 04 [...] daily. Medicin e Multiple Yes Take by [facility] Vitamins-Mi 06-18 mouth. Colleg e nerals 18:49: of (VITEYES 04 Medicin COMPLETE e OR) atorvastati Yes 20mg Take [address] [facility] n (LIPITOR) 06-18 by mouth Beto ege 20 MG 18:49: daily. of tablet 04 Medicin e Calcium-Mag Yes 1200mg Take 1,200 [place] nesium-Leanna - mg by [place] min D 18:49: mouth. of (CALCIUM 04 Medicin 1200+D3 OR) e Cholecalcif Yes Take by [place] [facility] dickson 06-18 mouth. [place] (VITAMIN 18:49: of D3) 2000 01 Medicin UNITS CAPS e Cyanocobala Yes Take by [place] [facility] min - mouth. [place] (VITAMIN 18:49: of B-12 OR) 04 Medicin e doxazosin Yes 4mg Take 4 mg [place] [facility] (CARDURA) 4 06-18 by mouth Beto ege MG tablet 18:49: daily. of 04 Medicin e warfarin Yes 7.5mg Take 7.5 [facility] (COUMADIN) -06 mg by [place] 7.5 MG 18:49: mouth of tablet 04 daily. Medicin Mondays, e Friday, Fri, and Friday aspirin 81 Yes 81mg Take 81 mg [facility] MG tablet 06-18 by mouth Colleg e 18:49: daily. of 04 Medicin e cycloSPORIN Yes 1[drp] [address] [facility] E 06-18 times [place] ([facility]) 18:43: daily. of 0.05 % 25 Medicin ophthalmic e emulsion olopatadine Yes [place] HCl 06-18 [place] ([facility]) 18:43: of 0.2 % 25 Medicin ophthalmic e solution olopatadine Yes [facility] HCl 06-18 [place] ([facility]) 18:43: of 0.2 % 25 Medicin ophthalmic e solution fluticasone Yes INSTILL 2 [facility] (FLONASE) 8-10 SPRAYS IN Colle ge 50 MCG/ACT 00:00: EACH of nasal spray 00 NOSTRIL Medic in EVERY DAY e fluticasone 2020- No INSTILL 2 [facility] (FLONASE) 8-10 07-16 SPRAYS IN [facility] ege 50 MCG/ACT 00:00: 00:00 EACH of nasal spray 00 :00 NOSTRIL Medic in EVERY DAY e fluticasone 2017-0 Yes daily as [facility] (FLONASE) 2-13 needed. College 50 MCG/ACT 00:00: of nasal spray 00 Medicin e fluticasone 20170 Yes daily as [facility] (FLONASE) 2-13 needed. College 50 MCG/ACT 00:00: of nasal spray 00 Medicin e fluticasone 2017-0 Yes daily as [facility] (FLONASE) 2-13 needed. College 50 MCG/ACT 00:00: of nasal spray 00 Medicin e fluticasone Yes 2{spray 2 sprays [facility] (FLONASE) 2-13 } by Each [facility] 50 00:00: Nare route [facility] mcg/actuati 00 as needed. l on nasal spray fluticasone Yes 100ug 2 sprays M ethodi (FLONASE) 2-13 ([address] 50 00:00: total) by Hospita mcg/actuati 00 Each Nare l on nasal route as spray needed. metoprolol 2014-10 Yes 50mg Take 50 mg [facility] (TOPROL-XL) 0-02 by mouth Beto ege 50 MG XL 18:09: daily. of tablet 48 Medicin e Immunizations Ordered Immunization Filled Immunization Date Status Commen ts Source Name Name CAROLYN TUBBSMya 2020-12-07 Completed Methodis t MRNA VACCINATION 00:00:00 [facility] 2020-12-07 Completed [facility]is t [facility] 2020-10-31 Completed [facility] Methodis t MRNA VACCINATION 00:00:00 Hospital Vital Signs Vital Name Observation Time Observation Value Comments Source Systolic blood 2020-06-23 15:13:00 104 mm[Hg] [facility] Diastolic blood 2020-06-23 15:13:00 62 mm[Hg] [facility] Heart rate 2020-06-23 15:13:00 72 /min [facility] Body weight 2020-06-23 15:13:00 97.523 kg [facility] Systolic blood 2020-06-23 15:13:00 104 mm[Hg] [facility] Diastolic blood 2020-06-23 15:13:00 62 mm[Hg] [facility] Heart rate 2020-06-23 15:13:00 72 /min [facility] Body weight 2020-06-23 15:13:00 97.523 kg [facility] Systolic blood 2023-03-18 13:21:00 126 mm[Hg] Method ist [facility] pressure Diastolic blood 2023-03-18 13:21:00 75 mm[Hg] Metho dist [facility] pressure Heart rate 2023-03-18 13:21:00 69 /min [facility] Body height 2023-03-18 13:21:00 175.3 cm [facility] Body weight 2023-03-18 13:21:00 92.08 kg [facility] BMI 2023-03-18 13:21:00 29.98 kg/m2 [facility] Oxygen saturation 2023-03-18 13:21:00 97 /min Met [facility] in Arterial blood by Pulse oximetry Procedures Procedure Date / Time Performing Clinician Source Performed PROTHROMBIN TIME WITH 2023-04-01 00:00:00 Provider, Not In [facility] PROTHROMBIN TIME WITH 2023-03-25 00:00:00 Provider, Not In [facility] ECG 12-LEAD 2023-03-18 13:32:32 MatildaJose E whitman [facility] PROTHROMBIN TIME WITH 2023-03-11 00:00:00 Provider, Not In [facility] OCT, RETINA - OU - BOTH 2023-02-26 10:42:43 [facility] PROTHROMBIN TIME WITH 2023-02-25 00:00:00 Provider, Not In [facility] PROTHROMBIN TIME WITH 2023-02-11 00:00:00 Provider, Not In [facility] PROTHROMBIN TIME WITH 2023-01-28 00:00:00 Provider, Not In [facility] PROTHROMBIN TIME WITH 2023-01-14 00:00:00 Provider, Not In [facility] PROTHROMBIN TIME WITH 2022-12-31 00:00:00 Provider, Not In [facility] PROTHROMBIN TIME WITH 2022-12-17 00:00:00 Provider, Not In [facility] PROTHROMBIN TIME WITH 2022-12-03 00:00:00 Provider, Not In [facility] PROTHROMBIN TIME WITH 2022-11-19 00:00:00 Provider, Not In [facility] PROTHROMBIN TIME WITH 2022-11-05 00:00:00 Provider, Not In [facility] PROTHROMBIN TIME WITH 2022-10-22 00:00:00 Provider, Not In [facility] PROTHROMBIN TIME WITH 2022-10-09 00:00:00 Provider, Not In [facility] PROTHROMBIN TIME WITH 2022-09-24 00:00:00 Provider, Not In [facility] PROTHROMBIN TIME WITH 2022-09-10 00:00:00 Provider, Not In [facility] PROTHROMBIN TIME WITH 2022-08-27 00:00:00 Provider, Not In [facility] PROTHROMBIN TIME WITH 2022-08-13 00:00:00 Provider, Not In [facility] PROTHROMBIN TIME WITH 2022-07-30 00:00:00 Provider, Not In [facility] PROTHROMBIN TIME WITH 2022-07-16 00:00:00 Provider, Not In [facility] PROTHROMBIN TIME WITH 2022-07-02 00:00:00 Provider, Not In [facility] PROTHROMBIN TIME WITH 2022-06-18 00:00:00 Provider, Not In [facility] PROTHROMBIN TIME WITH 2022-06-04 00:00:00 Provider, Not In [facility] PROTHROMBIN TIME WITH 2022-05-21 00:00:00 Provider, Not In [facility] PROTHROMBIN TIME WITH 2022-05-06 00:00:00 Provider, Not In [facility] PROTHROMBIN TIME WITH 2022-04-22 00:00:00 Provider, Not In [facility] MRI SPINE EXTERNAL 2022-04-08 20:04:00 Larry Holliday [facility] STUDY [place] XR SPINE EXTERNAL STUDY 2022-04-02 20:04:00 Larry Holliday [facility] PROTHROMBIN TIME WITH 2022-04-01 00:00:00 Provider, Not In [facility] PROTHROMBIN TIME WITH 2022-03-18 00:00:00 Provider, Not In [facility] PROTHROMBIN TIME WITH 2022-03-06 00:00:00 Provider, Not In [facility] PROTHROMBIN TIME WITH 2022-02-18 00:00:00 Provider, Not In [facility] XR HIPS 2 VW RIGHT 2020-06-23 15:24:53 Sil Gilbert [facility] ASSIGNMENT OF BENEFITS 2020-06-23 14:45:46 Doctor Unassigned, No [facility] YAG CAPSULOTOMY - OS - 2020-05-09 22:44:17 Bob Kunz [facility] EYE [facility] Plan of Care Planned Activity Planned Date Details Comments Source Future Scheduled 2023-04-03 65+ PNEUMOCOCCAL [facility] Test 10:12:56 VACCINE (1 - PCV) [code = 65+ PNEUMOCOCCAL VACCINE (1 - PCV)] Future Scheduled 2023-04-03 SHINGLES VACCINES (1 Met [facility] Test 10:12:56 of 2) [code = SHINGLES VACCINES (1 of 2)] Future Scheduled 2023-04-03 COVID-19 VACCINE (4 - Me [facility] Test 10:12:56 Moderna series) [code = COVID-19 VACCINE (4 - Moderna series)] Future Scheduled 2023-04-03 INFLUENZA VACCINE [facility] Test 10:12:56 [code = INFLUENZA VACCINE] Future Scheduled 2023-02-11 65+ [facility]OCOCCAL [facility] Test 13:36:59 VACCINE (1 - PCV) [code = 65+ PNEUMOCOCCAL VACCINE (1 - PCV)] Future Scheduled 2023-02-11 SHINGLES VACCINES (1 Met [facility] Test 13:36:59 of 2) [code = SHINGLES VACCINES (1 of 2)] Future Scheduled 2023-02-11 COVID-19 VACCINE (4 - Me [facility] Test 13:36:59 Booster for Moderna series) [code = COVID-19 VACCINE (4 - Booster for Moderna series)] Future Scheduled 2023-02-11 INFLUENZA VACCINE Method [facility] Test 13:36:59 [code = INFLUENZA VACCINE] Future Scheduled TETANUS SHOT (ADULT) [facility] of Test [code = TETANUS SHOT Medicin e (ADULT)] Future Scheduled FALL SCREEN [code = [facility] of Test FALL SCREEN] Medicine Future Scheduled PNEUMOVAX >=65 [facility] l[facility] of Test (PPSV23) [code = Medicine PNEUMOVAX >=65 (PPSV23)] Future Scheduled MEDICARE AWV (Initial) B [facility] of Test [code = MEDICARE AWV Medicin e (Initial)] Future Scheduled FLU VACCINE > 6 MONTHS B [facility] of Test [code = FLU VACCINE > Medici ne 6 MONTHS] Future Scheduled TETANUS SHOT (ADULT) [facility] of Test [code = TETANUS SHOT Medicin e (ADULT)] Future Scheduled ZOSTER VACCINE (1 of [facility] of Test 2) [code = ZOSTER Medicine VACCINE (1 of 2)] Future Scheduled FALL SCREEN [code = [facility] or [place] of Test FALL SCREEN] Medicine Future Scheduled PNEUMOVAX >=[address] [facility] llege of Test (PPSV23) [code = Medicine PNEUMOVAX >=65 (PPSV23)] Future Scheduled MEDICARE AWV (Initial) B [facility] of Test [code = MEDICARE AWV Medicin e (Initial)] Future Scheduled FLU VACCINE > 6 MONTHS B [facility] of Test [code = FLU VACCINE > Medici ne 6 MONTHS] Future Scheduled MEDICARE AWV [code = [facility] of Test MEDICARE AWV] Medicine Future Scheduled TETANUS SHOT (ADULT) [facility] of Test [code = TETANUS SHOT Medicin e (ADULT)] Future Scheduled FALL SCREEN [code = [facility] of Test FALL SCREEN] Medicine Future Scheduled PNEUMOVAX >=[address] [facility] of Test (PPSV23) [code = Medicine PNEUMOVAX >=65 (PPSV23)] Future Scheduled PREVNAR >= 65 (PCV13) [facility] of Test [code = PREVNAR >= 65 Medici ne (PCV13)] Future Scheduled FLU VACCINE > 6 MONTHS B [facility] of Test [code = FLU VACCINE > Medici ne 6 MONTHS] Future Scheduled TETANUS SHOT (ADULT) [facility] of Test [code = TETANUS SHOT Medicin e (ADULT)] Future Scheduled FALL SCREEN [code = [facility] or [facility] of Test FALL SCREEN] Medicine Future Scheduled PNEUMOVAX >=[address] [facility] of Test (PPSV23) [code = Medicine PNEUMOVAX >=65 (PPSV23)] Future Scheduled MEDICARE AWV (Initial) B [facility] of Test [code = MEDICARE AWV Medicin e (Initial)] Future Scheduled FLU VACCINE > 6 MONTHS B [facility] of Test [code = FLU VACCINE > Medici ne 6 MONTHS] Encounters Start End Encounter Admission Attending Care Care Encounter Source Date/Time Date/Time Type Type Clinicians Facility Department ID 2023-02-28 Outpatient SYSTEM, [facility] [id number] 11:32:57 PROVIDER Tuan o n 2023-02-19 Outpatient Sun [facility] [id number] Common 15:20:01 Gene [id number] [facility] 2023-02-18 Outpatient Sun [facility] [id number] Common 13:02:04 Gene [id number] [facility] 2022-08-24 Outpatient SYSTEM, [facility] [id number] 10:05:00 PROVIDER Tuan o n 2021-09-18 Outpatient SYSTEM, [facility] [id number] 10:12:49 PROVIDER Tuan o n 2023-04-03 2023-04-03 Telephone Naeem, 1.2.840.1 [id number] 2100 [id number] Methodi 00:00:00 00:00:[address] 3.430.2.7 Hospit a .3.037013 l .8 2023-03-25 2023-03-25 Telephone Naeem, 1.2.840.1 [id number] 2099 850890 Methodi 00:00:00 00:00:[address] 3.430.2.7 Hospit a .3.589148 l .8 2023-03-18 2023-03-18 Office Murray, 1.2.840.1 [id number] 773479 5855 Methodi 08:30:00 08:57:21 Visit Jose E Jacobson 49772.1.1 317 s t 3.430.2.7 Hospit a .3.227186 l .8 2023-03-18 2023-03-18 Outpatient [facility] [id number] [address] [place] [address] 00:00:00 00:00:00 JOSE E [address] 2023-03-18 2023-03-18 Travel 1.2.840.1 1.2.806.937 9029 830715 Methodi 00:00:00 00:00:[address] 3.430.2.7 0.2.7.3.698 spita .3.096256 084.8 l .8 2023-03-11 2023-03-11 Telephone Naeem, 1.2.840.1 [id number] 2100 331713 Methodi 00:00:00 00:00:[address] 3.430.2.7 Hospit a .3.173910 l .8 2023-03-06 2023-03-06 Outpatient WNEDY GALLO MDA MDA [id number] 08:43:07 09:55:12 STEPHANE geronimo 2023-03-03 2023-03-03 Telephone Michael 1.2.840.1 [id number] 2099 [id number] Methodi 00:00:00 00:00:00 Lana A 18436.1.[address] 3.430.2.7 Hospit a .3.555200 l .8 2023-02-26 2023-02-26 [facility] [id number] [facility] 09:17:19 11:09:06 Talia 2023-02-25 2023-02-25 Telephone Michael, 1.2.840.1 [id number] 2099 [id number] Methodi 00:00:00 00:00:00 Lana A [address]11.1.[address] 3.430.2.7 Hospit a .3.332704 l .8 2023-02-11 2023-02-11 Telephone Naeem, 1.2.840.1 [id number] 2099 [id number] Methodi 00:00:00 00:00:[address] 3.430.2.7 Hospit a .3.609336 l .8 2023-02-11 2023-02-11 Telephone Naeem, 1.2.840.1 [id number] 2099 158110 Methodi 00:00:00 00:00:[address] 3.430.2.7 Hospit a .3.264212 l .8 2023-01-29 2023-01-29 Telephone Hartley, 1.2.840.1 [id number] 2099 186114 Methodi 00:00:00 00:00:[address] 3.430.2.7 Hospit a .3.668927 l .8 2023-01-29 2023-01-29 Telephone Hartley, 1.2.840.1 [id number] 2099 878341 Methodi 00:00:00 00:00:[address] 3.430.2.7 Hospit a .3.146207 l .8 2023-01-14 2023-01-14 Telephone Hartley, 1.2.840.1 [id number] 2099 471115 Methodi 00:00:00 00:00:[address] 3.430.2.7 Hospit a .3.614704 l .8 2023-01-14 2023-01-14 Telephone Naeem, 1.2.840.1 [id number] 2099 838935 Methodi 00:00:00 00:00:[address] 3.430.2.7 Hospit a .3.513843 l .8 2022-12-31 2022-12-31 Telephone Michael, 1.2.840.1 [id number] 2099 899174 Methodi 00:00:00 00:00:00 Lana [address]1.[address] 3.430.2.7 Hospit a .3.609778 l .8 2022-12-31 2022-12-31 Telephone Michael, 1.2.840.1 [id number] 2099 432971 Methodi 00:00:00 00:00:00 Lana A [address]1.[address] 3.430.2.7 Hospit a .3.542017 l .8 2022-12-17 2022-12-17 Telephone Naeem, 1.2.840.1 [id number] 2099 116806 Methodi 00:00:00 00:00:[address] 3.430.2.7 Hospit a .3.644505 l .8 2022-12-17 2022-12-17 Telephone Naeem, 1.2.840.1 [id number] 2099 795537 Methodi 00:00:00 00:00:[address] 3.430.2.7 Hospit a .3.554236 l .8 2022-12-03 2022-12-03 Telephone Naeem, 1.2.840.1 [id number] 2099 739535 Methodi 00:00:00 00:00:[address] 3.430.2.7 Hospit a .3.695989 l .8 2022-12-03 2022-12-03 Telephone Naeem, 1.2.840.1 [id number] 2099 624667 Methodi 00:00:00 00:00:[address] 3.430.2.7 Hospit a .3.784163 l .8 2022-11-29 2022-11-29 Outpatient WENDY TYLER MDA [facility] [id number] 10:08:30 10:56:53 LEVY geronimo 2022-11-19 2022-11-19 Telephone Michael, 1.2.840.1 [id number] 2099 702826 Methodi 00:00:00 00:00:00 Lana A [address]76.1.[address] 3.430.2.7 Hospit a .3.688384 l .8 2022-11-19 2022-11-19 Telephone Michael, 1.2.840.1 [id number] 2099 281652 Methodi 00:00:00 00:00:00 Lana A [address].1.[address] 3.430.2.7 Hospit a .3.485441 l .8 2022-11-05 2022-11-05 Telephone Michael, 1.2.840.1 [id number] 2099 290075 Methodi 00:00:00 00:00:00 Lana [address] 3.430.2.7 Hospit a .3.540005 l .8 2022-11-05 2022-11-05 Telephone Michael, 1.2.840.1 [id number] 2099 830552 Methodi 00:00:00 00:00:00 Lana A [address]1.[address] 3.430.2.7 Hospit a .3.572789 l .8 2022-10-29 2022-10-29 Refill Zoghbi, 1.2.840.1 [id number] 279374 4391 Methodi 00:00:00 00:00:00 Jose E FerminMichelle 53948.1.1 739 s t 3.430.2.7 Hospit a .3.713527 l .8 2022-10-29 2022-10-29 Refill Zoghbi, 1.2.840.1 [id number] 537292 7216 Methodi 00:00:00 00:00:00 Jose E Fermin. 34209.1.1 739 s t 3.430.2.7 Hospit a .3.488436 l .8 2022-10-22 2022-10-22 [facility], 1.2.840.1 [id number] 751339 9243 Methodi 00:00:00 00:00:00 Jose E Fermin. 01685.1.1 848 s t 3.430.2.7 Hospit a .3.108581 l .8 2022-10-22 2022-10-22 Telephone Hartley, 1.2.840.1 [id number] 2099 746460 Methodi 00:00:00 00:00:[address] 3.430.2.7 Hospit a .3.041871 l .8 2022-10-22 2022-10-22 [facility], 1.2.840.1 [id number] 708824 8311 Methodi 00:00:00 00:00:00 Jose E Fermin. 31718.1.1 848 s t 3.430.2.7 Hospit a .3.994740 l .8 2022-10-22 2022-10-22 Telephone Hartley, 1.2.840.1 [id number] 2099 818565 Methodi 00:00:00 00:00:[address] 3.430.2.7 Hospit a .3.042385 l .8 2022-10-10 2022-10-10 Telephone Hartley, 1.2.840.1 [id number] 2099 901699 Methodi 00:00:00 00:00:[address] 3.430.2.7 Hospit a .3.387995 l .8 2022-10-10 2022-10-10 Telephone Hartley, 1.2.840.1 [id number] 2099 223187 Methodi 00:00:00 00:00:[address] 3.430.2.7 Hospit a .3.401023 l .8 2022-10-09 2022-10-09 Telephone Hartley, 1.2.840.1 [id number] 2099 129605 Methodi 00:00:00 00:00:[address] 3.430.2.7 Hospit a .3.133043 l .8 2022-10-09 2022-10-09 Telephone Hartley, 1.2.840.1 [id number] 2099 813464 Methodi 00:00:00 00:00:[address] 3.430.2.7 Hospit a .3.345566 l .8 2022-09-24 2022-09-24 Telephone Hartley, 1.2.840.1 [id number] 2099 798296 Methodi 00:00:00 00:00:[address] 3.430.2.7 Hospit a .3.289491 l .8 2022-09-24 2022-09-24 Telephone Hartley, 1.2.840.1 [id number] 2099 320641 Methodi 00:00:00 00:00:[address] 3.430.2.7 Hospit a .3.132695 l .8 2022-09-10 2022-09-10 Telephone Hartley, 1.2.840.1 [id number] 2099 [address]60936 Methodi 00:00:00 00:00:[address] 3.430.2.7 Hospit a .3.041976 l .8 2022-09-10 2022-09-10 Telephone Hartley, 1.2.840.1 [id number] 2099 209278 Methodi 00:00:00 00:00:[address] 3.430.2.7 Hospit a .3.669103 l .8 2022-08-29 2022-08-29 Outpatient WENDY GALLO MDA [facility] [id number] 544 09:02:26 09:54:56 STEPHANE geronimo 2022-08-27 2022-08-27 Telephone Hartley, 1.2.840.1 [id number] 2099 749612 Methodi 00:00:00 00:00:[address] 3.430.2.7 Hospit a .3.859656 l .8 2022-08-27 2022-08-27 Telephone Hartley, 1.2.840.1 [id number] 2099 052667 Methodi 00:00:00 00:00:[address] 3.430.2.7 Hospit a .3.131646 l .8 2022-08-13 2022-08-13 Telephone Michael, 1.2.840.1 [id number] 2099 695665 Methodi 00:00:00 00:00:00 Lana A [address]22.1.[address] 3.430.2.7 Hospit a .3.308241 l .8 2022-08-13 2022-08-13 Telephone Michael, 1.2.840.1 [id number] 2099 489331 Methodi 00:00:00 00:00:00 Lana A [address].1.[address] 3.430.2.7 Hospit a .3.674255 l .8 2022-07-30 2022-07-30 Telephone Naeem, 1.2.840.1 [id number] 2099 752951 Methodi 00:00:00 00:00:[address] 3.430.2.7 Hospit a .3.138444 l .8 2022-07-30 2022-07-30 Telephone Naeem, 1.2.840.1 [id number] 2099 780340 Methodi 00:00:00 00:00:[address] 3.430.2.7 Hospit a .3.175403 l .8 2022-07-16 2022-07-16 Telephone Naeem, 1.2.840.1 [id number] 2099 235540 Methodi 00:00:00 00:00:[address] 3.430.2.7 Hospit a .3.462298 l .8 2022-07-16 2022-07-16 Telephone Naeem, 1.2.840.1 [id number] 2099 297117 Methodi 00:00:00 00:00:[address] 3.430.2.7 Hospit a .3.898194 l .8 2022-07-15 2022-07-15 Telephone Michael, 1.2.840.1 [id number] 2099722 Methodi 00:00:00 00:00:00 Lana A [address].1.[address] 3.430.2.7 Hospit a .3.857427 l .8 2022-07-15 2022-07-15 Telephone Michael, 1.2.840.1 [id number] 2099 361006 Methodi 00:00:00 00:00:00 Lana A [address]1.[address] 3.430.2.7 Hospit a .3.088121 l .8 2022-07-02 2022-07-02 Telephone Hartley, 1.2.840.1 [id number] 2099 823290 Methodi 00:00:00 00:00:[address] 3.430.2.7 Hospit a .3.791655 l .8 2022-07-02 2022-07-02 Telephone Hartley, 1.2.840.1 [id number] 2099 559394 Methodi 00:00:00 00:00:[address] 3.430.2.7 Hospit a .3.980784 l .8 2022-06-26 2022-06-26 Refill Zoj carlos, 1.2.840.1 [id number] 533132 1047 Methodi 00:00:00 00:00:00 Jose E Jacobson 39627.1.1 070 s t 3.430.2.7 Hospit a .3.404476 l .8 2022-06-26 2022-06-26 Refill Zoghbi, 1.2.840.1 [id number] 151494 0430 Methodi 00:00:00 00:00:00 Jose E Jacobson 72726.1.1 070 s t 3.430.2.7 Hospit a .3.403666 l .8 2022-06-18 2022-06-18 Telephone Naeem, 1.2.840.1 [id number] 2099 000169 Methodi 00:00:00 00:00:[address] 3.430.2.7 Hospit a .3.162954 l .8 2022-06-18 2022-06-18 Telephone Hartley, 1.2.840.1 [id number] 2099 747590 Methodi 00:00:00 00:00:[address] 3.430.2.7 Hospit a .3.899431 l .8 2022-06-04 2022-06-04 Documentat Michael, 1.2.840.1 [id number] 479 4855222 Methodi 00:00:00 00:00:00 jen[address] Fermin 16716.1.[address] 3.430.2.7 Hospit a .3.546784 l .8 2022-06-04 2022-06-04 Documentat Michael, 1.2.840.1 [id number] 514 2706338 Methodi 00:00:00 00:00:00 jenise Schwartz A [address]162.1.[address] 3.430.2.7 Hospit a .3.698000 l .8 2022-05-29 2022-05-29 [facility] [id number] [address] [place] [address] 09:40:33 10:34:12 Rufino ortiz of Medicin e 2022-05-21 2022-05-21 Telephone Naeem, 1.2.840.1 [id number] 2099 341054 Methodi 00:00:00 00:00:[address] 3.430.2.7 Hospit a .3.063062 l .8 2022-05-21 2022-05-21 Telephone Naeem, 1.2.840.1 [id number] 2099 209525 Methodi 00:00:00 00:00:[address] 3.430.2.7 Hospit a .3.196462 l .8 2022-05-14 2022-05-14 Telephone Hartley, 1.2.840.1 [id number] 2099 433882 Methodi 00:00:00 00:00:[address] 3.430.2.7 Hospit a .3.115470 l .8 2022-05-14 2022-05-14 Telephone Naeem, 1.2.840.1 [id number] 2099 125262 Methodi 00:00:00 00:00:[address] 3.430.2.7 Hospit a .3.744365 l .8 2022-05-10 2022-05-10 Pre-Admiss [facility], 1.2.840.1 [id number] 475 8241815 Methodi 13:00:00 14:00:00 ion Larry 03145.1.[address] Testing [place] 3.430.2.7 Hospi ta .3.247027 l .8 2022-05-10 2022-05-10 [facility].840.1 [id number] 349 8665778 Methodi 13:00:00 14:00:00 ion Larry 99774.1.[address] Testing [place] 3.430.2.7 Hospi ta .3.528746 l .8 2022-05-07 2022-05-07 Telephone Naeem, 1.2.840.1 [id number] 2099 931688 Methodi 00:00:00 00:00:[address] 3.430.2.7 Hospit a .3.271656 l .8 2022-05-07 2022-05-07 Telephone Naeem, 1.2.840.1 [id number] 2099 129265 Methodi 00:00:00 00:00:[address] 3.430.2.7 Hospit a .3.662274 l .8 2022-04-24 2022-04-24 [facility], 1.2.840.1 [id number] 33520 53640 Methodi 11:42:58 23:59:00 Encounter Larry 66520.1.1 068 s t [place] 3.430.2.7 Hospi ta .3.416565 l .8 2022-04-24 2022-04-24 [facility], 1.2.840.1 [id number] 41585 Methodi 11:42:58 23:59:00 Encounter Larry 07238.1.1 068 s t [place] 3.430.2.7 Hospi ta .3.492702 l .8 2022-04-24 2022-04-24 [facility], 1.2.840.1 [id number] 70272 Methodi 11:40:22 11:41:00 Encounter Larry 81698.1.1 663 s t [place] 3.430.2.7 Hospi ta .3.580677 l .8 2022-04-24 2022-04-24 [facility], 1.2.840.1 [id number] Methodi 11:40:22 11:41:00 Encounter Larry 44497.1.1 663 s t [place] 3.430.2.7 Hospi ta .3.707309 l .8 2022-04-24 2022-04-24 [facility], 1.2.840.1 [id number] 19 Methodi 11:38:38 11:39:00 Encounter Larry 03423.1.1 441 s t [place] 3.430.2.7 Hospi ta .3.424991 l .8 2022-04-24 2022-04-24 [facility], 1.2.840.1 [id number] 25142 Methodi 11:38:38 11:39:00 Encounter Larry 65249.1.1 441 s t [place] 3.430.2.7 Hospi ta .3.576971 l .8 2022-04-24 2022-04-24 [facility] Naeem, 1.2.840.1 [id number] 226386 0704 Methodi 00:00:00 00:00:00 Only Anuradha 85174.1.[address] 3.430.2.7 Hospit a .3.748428 l .8 2022-04-24 2022-04-24 Telephone Hartley, 1.2.840.1 [id number] 2099 242988 Methodi 00:00:00 00:00:[address] 3.430.2.7 Hospit a .3.142146 l .8 2022-04-24 2022-04-24 Orders Hartley, 1.2.840.1 [id number] 971308 9274 Methodi 00:00:00 00:00:00 Only Anuradha 96768.1.[address] 3.430.2.7 Hospit a .3.384779 l .8 2022-04-24 2022-04-24 Telephone Hartley, 1.2.840.1 [id number] 2099 798408 Methodi 00:00:00 00:00:[address] 3.430.2.7 Hospit a .3.878918 l .8 2022-04-22 2022-04-22 Telephone Michael, 1.2.840.1 [id number] 2099 052074 Methodi 00:00:00 00:00:00 Lana A [address]41.1.[address] 3.430.2.7 Hospit a .3.242203 l .8 2022-04-22 2022-04-22 Telephone Michael, 1.2.840.1 [id number] 2099 069142 Methodi 00:00:00 00:00:00 Lana A [address].1.[address] 3.430.2.7 Hospit a .3.812460 l .8 2022-04-16 2022-04-16 Refill Zosarathbi, 1.2.840.1 [id number] 765015 1802 Methodi 00:00:00 00:00:00 Jose E JenyMichelle 00958.1.1 794 s t 3.430.2.7 Hospit a .3.098379 l .8 2022-04-16 2022-04-16 Refill Zoghbi, 1.2.840.1 [id number] 349989 4772 Methodi 00:00:00 00:00:00 Jose E Jacobson 44554.1.1 794 s t 3.430.2.7 Hospit a .3.946860 l .8 2022-04-09 2022-04-09 Telephone Hartley, 1.2.840.1 [id number] 2099 480443 Methodi 00:00:00 00:00:[address] 3.430.2.7 Hospit a .3.465303 l .8 2022-04-09 2022-04-09 Telephone Hartley, 1.2.840.1 [id number] 2099 561157 Methodi 00:00:00 00:00:[address] 3.430.2.7 Hospit a .3.282860 l .8 2022-04-01 2022-04-01 Telephone Naeem, 1.2.840.1 [id number] 2099 782653 Methodi 00:00:00 00:00:[address] 3.430.2.7 Hospit a .3.809892 l .8 2022-03-18 2022-03-18 Documentat Michael, 1.2.840.1 [id number] 774 5204924 Methodi 00:00:00 00:00:00 [address]en[address] Fermin [address].1.[address] 3.430.2.7 Hospit a .3.503495 l .8 2022-03-06 2022-03-06 Telephone Hartley, 1.2.840.1 [id number] 2099 540923 Methodi 00:00:00 00:00:[address] 3.430.2.7 Hospit a .3.816366 l .8 2022-02-19 2022-02-19 Telephone Hartley, 1.2.840.1 [id number] 2099 224369 Methodi 00:00:00 00:00:[address] 3.430.2.7 Hospit a .3.973167 l .8 2021-11-29 2021-11-29 Outpatient WENDY TYLER MDA MDA [id number] 09:01:11 10:15:20 LEVY geronimo 2021-10-24 2021-10-24 Outpatient [place] BC [id number] [facility] 08:58:30 11:08:26 Agustín Medicin e 2021-08-30 2021-08-30 Outpatient WENDY GALLO MDA MDA [id number] 08:53:21 09:38:16 STEPHANE geronimo 2021-08-28 2021-08-28 Outpatient WENDY GALLO MDA MDA [id number] 09:21:06 10:00:39 STEPHANE geronimo 2020-12-07 2020-12-07 Outpatient [facility] [id number] [address] [place] 00:00:00 00:00:00 552 Method i 2020-12-06 2020-12-06 Outpatient [facility] [id number] [address] [place] 00:00:00 00:00:00 JOSE E 589 Method i 2020-12-06 2020-12-06 Outpatient [facility] [id number] [address] [place] 00:00:00 00:00:00 JOSE E 629 Method i 2020-11-21 2020-11-21 Outpatient [facility] [id number] [address] [place] 00:00:00 00:00:00 JOSE E 257 Method i 2020-11-21 2020-11-21 Outpatient [facility] [id number] [address] [place] 00:00:00 00:00:00 JOSE E 950 Method i 2020-11-05 2020-11-05 Patient Fermin [facility] 1.2.840.114 [id number] 62 [facility] 00:00:00 00:00:00 Outreach Eleuterio ORNELAS 350.1.13.10 i [facility] 4.2.7.2.686 Kb BUTLER 105.0432736 Tn dical [address] 2020-10-31 2020-10-31 Outpatient [facility] [id number] [address] [place] 00:00:00 00:00:[address] 2020-07-11 2020-07-11 Outpatient [facility] [id number] [address] [place] 00:00:00 00:00:00 JOSE E Lewis [facility] 2020-06-23 2020-06-23 Hospital [facility] 1.2.840.114 [id number] [employer] 10:24:53 23:59:00 Encounter Sil Culver [facility] 350.1.13.10 ity of Surgical 4.2.7.2.686 Nicholas as Specialti [id number] Tn dical es 809 [facility] 2020-06-23 2020-06-23 Office [facility] 1.2.840.114 [id number] [employer] 09:49:06 10:55:00 Visit Sil [facility] 350.1.13.10 it y of Surgical 4.2.7.2.686 Nicholas as Specialti 443.4716448 Tn dical es 198 [facility] 2020-06-23 2020-06-23 Office [facility] 1.2.840.114 [id number] 09:49:06 10:55:00 Visit Bob [facility] 350.1.13.10 Surgical 4.2.7.2.686 Specialti [id number] es 198 [place] 2020-06-23 2020-06-23 Outpatient R [facility] [id number] [employer] 10:00:00 10:00:00 SIL ity of [facility] 2020-06-23 2020-06-23 Orders Doctor ROGELIO 1.2.840.114 [id number] Univers 00:00:00 00:00:00 Only Unassigned, HOLGER 350.1.13.10 ity of [facility] 4.2.7.2.686 Nicholas as [id number] [facility] [address] 2020-05-24 2020-05-24 Office JACQUES Sebastian 1.2.840.[id number] [facility] 09:07:01 11:32:48 Visit Jacob Cano AMBULATOR 350.1.13.21 College Y 0.2.7.2.686 of [id number] [facility] 300 e 2020-05-24 2020-05-24 Office JACQUES Sebastian 1.2.840.114 [id number] 09:07:01 11:32:48 Visit Jacob Cano AMBULATOR 350.1.13.21 Y 0.2.7.2.686 [id number] 300 2020-05-09 2020-05-09 Office JACQUES Kunz 1.2.840.[id number] [facility] 15:33:07 16:55:39 Visit Bob Penaloza AMBULATOR 350.1.13.21 College Y 0.2.7.2.686 of [id number] Medi eron 300 e 2020-04-27 2020-04-27 Office ramiroJACQUES 1.2.840.[id number] [facility] 07:59:49 09:37:41 Visit Kaylah AMBULATOR 350.1.13.21 [employer] Trace Y 0.2.7.2.686 of [id number] Medi eron 300 e 2019-10-28 2019-10-28 Outpatient [facility] [id number] [place] 00:00:00 00:00:00 TAZ [address] 2019 2019 Office RENATO LaraStef 1.2.840.[id number] [facility] 10:24:38 11:34:18 Visit Nakia AMBULATOR 350.1.13.21 College Y 0.2.7.2.686 of [id number] Medi eron 300 e 2017-12-30 2017-12-31 Outpatient WENDY BRAMBILA MDA MDA [id number] 07:54:16 07:37:34 KAYLEE geronimo Results Test Description Test Time Test Comments Results Result Comments Source Prothrombin time with INR 2023-04-01 00:00:00 Test Item Value Reference Range Interpretation Comme nts INR (test code = 98939-4) [id number] 14:21:53 Test Item Value Reference Range Interpretation Comments Ventricular rate 75 (test code = 253) QRSD interval (test 90 code = 260) QT interval (test 424 code = 264) QTC interval (test 473 code = 265) QRS axis 1 (test code -55 = 268) T wave axis (test -7 code = 270) EKG impression (test Poor data quality-Atrial code = 273) fibrillation-Left anterior fascicular block-Nonspecific ST abnormality-Abnormal ECG-In automated comparison with ECG of 09-FEB-2021 09:40,-QT has lengthened-Electronicall y Signed By Compa Pepper MD ([id number]) on 03/18/2023 9:21:47 AM-[facility] [id number] 00:00:00 Test Item Value Reference Range Interpretation Comments INR (test code = 02917-6) 2.50 [facility] VW [id number] 15:51:53He has degenerative changes in his right hip but they are ?[facility] CAPSULOTOMY - OS - LEFT [id number] 22:44:17 AND REVIEW OF INFORMED CONSENT: Av [...] eye and activity. ASSESSMENT:Posterior capsular op[facility]ification[facility]
[2023-04-05] MEDS ORDERED: ACETAMINOPHEN 500 MG TAB ONE (23:00)
[2023-04-05 23:04] LABS: Renal Epithelial <5 /HPF (None Seen); Specific Gravity 1.011 (1.005-1.030); Urine Bacteria None Seen /HPF (<20); Urine Bilirubin NEGATIVE (Negative); Urine Blood 3+ (Negative); Urine Clarity Clear (Clear); Urine Color Yellow (Yellow); Urine Glucose NEGATIVE (Negative); Urine Protein NEGATIVE (Negative); Urine RBC 21-50 /HPF (None Seen); Urine Urobilinogen Normal (Normal); Urine pH 6.5 (5.0-7.0)
--- NOTE | 2023-04-05 23:37 | EDPHYS ---
Physician Documentation [facility] Name: Memo Loredo Age: 87 yrs Sex: Male : 1935 Arrival Date: 04/05/2023 Time: 20:06 Bed External Waiting Private MD: ED Physician Jean-Claude Hill HPI: 04/05 23:01 This 87 yrs old Male presents to ER via Wheelchair with complaints of Urinary ms3 Retention, PT HAD STINT PROCEDURE 04/01/23 AND REMOVED 04/04/23. 23:01 87-year-old male presents for difficulty with urination after having a ureteral stent ms3 removed yesterday at Dr. Hillman office. Patient states that the last time he fully voided was yesterday. Patient states he has the urge to pee. Patient denies alleviating or inciting factors. Historical: - Immunization history:: Adult Immunizations up to date. - Social history:: Smoking status: Patient/guardian denies using tobacco, the patient reports quitting approximately 1970 years ago. ROS: 23:01 Constitutional: Negative for fever, and chills. Neck: Negative for injury, pain, and ms3 swelling, Cardiovascular: Negative for chest pain, and palpitations. Respiratory: Negative for shortness of breath, cough, wheezing, and pleuritic chest pain, Abdomen/GI: Negative for abdominal pain, nausea, vomiting, diarrhea, and constipation. 23:01 MS/Extremity: Negative for injury and deformity, Skin: Negative for injury, rash, and discoloration. 23:01 : Positive for urinary frequency, difficulty urinating. 23:01 All other systems are negative. Exam: 23:01 Constitutional: This is a well developed, well nourished patient who is awake, alert, ms3 and in no acute distress. Head/Face: Normocephalic, atraumatic. Neck: Trachea midline, no cervical lymphadenopathy. Supple, full range of motion without nuchal rigidity, or vertebral point tenderness. No Meningismus. Chest/axilla: Normal chest wall appearance and motion. Nontender with no deformity. Cardiovascular: Regular rate and rhythm with a normal S1 and S2. No gallops, murmurs, or rubs. Normal PMI, no JVD. No pulse deficits. Respiratory: Lungs have equal breath sounds bilaterally, clear to auscultation and percussion. No rales, rhonchi or wheezes noted. No increased work of breathing, no retractions or nasal flaring. Abdomen/GI: Soft, non-tender, with normal bowel sounds. No distension or tympany. No guarding or rebound. No evidence of tenderness throughout. Skin: Warm, dry with normal turgor. Normal color with no rashes, no lesions, and no evidence of cellulitis. MS/ Extremity: Pulses equal, no cyanosis. Neurovascular intact. Full, normal range of motion. Vital Signs: 20:20 BP 118 / 54; Pulse 65; Resp 18; Temp 98.1; Pulse Ox 96% ; Weight 96.16 kg; os MDM: 20:34 Patient medically screened. ms3 23:01 ED course: Bladder scan revealed 70 cc urine. Patient with Urinal with 100 mL of urine..ms3 23:36 Data reviewed: vital signs, nurses notes, lab test result(s), urinalysis, and as a ms3 result, I will discharge patient. I considered the following discharge prescriptions or medication management in the emergency department Medications were administered in the Emergency Department. See MAR. Historians other than the Patient: Daughter/Son: Son. Counseling: I had a detailed discussion with the patient and/or guardian regarding: the historical points, exam findings, and any diagnostic results supporting the discharge/admit diagnosis, lab results, the need for outpatient follow up, to return to the emergency department if symptoms worsen or persist or if there are any questions or concerns that arise at home. Special discussion: I discussed with the patient/guardian in detail that at this point there is no indication for admission to the hospital. It is understood, however, that if the symptoms persist or worsen the patient needs to return immediately for re-evaluation. 04/05 21:51 Order name: Urinalysis w/ reflexes; Complete Time: 23:08 ms3 04/05 20:35 Order name: Bladder Scanner; Complete Time: 20:51 ms3 Administered Medications: 22:53 Drug: Acetaminophen PO 1000 mg Route: PO; kl Disposition Summary: 04/05/23 23:36 Discharge Ordered Location: Home ms3 Condition: Stable ms3 Diagnosis - Urinary frequency ms3 - Difficulty urinating ms3 Followup: ms3 - With: Jamie Hillman MD - When: 2 - 3 days - Reason: Recheck today's complaints Discharge Instructions: - Discharge Summary Sheet ms3 - Urinary Frequency, Adult ms3 Forms: - Medication Reconciliation Form ms3 - Thank You Letter ms3 - Antibiotic Education ms3 - Prescription Opioid Use ms3 Signatures: Dispatcher [employer] Cony Vazquez, RN RN Jean-Claude Minor, DO ms3 Roya Love RN RN os Corrections: (The following items were deleted from the chart) 20:23 20:23 PMHx: Hypertension; os os 20:23 20:23 PMHx: Atrial Fib; os os
--- NOTE | 2023-04-05 23:37 | ER ---
Nurse's Notes [facility] Name: Memo Loredo Age: 87 yrs Sex: Male : 1935 Arrival Date: 04/05/2023 Time: 20:06 Bed External Waiting Private MD: Diagnosis: Urinary frequency;Difficulty urinating Presentation: 04/05 20:20 Chief complaint: Patient states: I haven't been able to urinate for the past 24 hrs. I os had a kidney stent put in last Friday, and they Pulled it out this past friday. Coronavirus screen: Vaccine status: Patient reports receiving the 2nd dose of the covid vaccine. Cant remember the date. Ebola Screen: Patient negative for fever greater than or equal to 101.5 degrees Fahrenheit, and additional compatible Ebola Virus Disease symptoms. Initial Sepsis Screen: Does the patient meet any 2 criteria? No. Patient's initial sepsis screen is negative. Does the patient have a suspected source of infection? No. Patient's initial sepsis screen is negative. Risk Assessment: Do you want to hurt yourself or someone else? Patient reports no desire to harm self or others. Onset of symptoms was April 04, 2023. 20:20 Method Of Arrival: Wheelchair os 20:20 Acuity: JOANNE 3 os Historical: - Immunization history:: Adult Immunizations up to date. - Social history:: Smoking status: Patient/guardian denies using tobacco, the patient reports quitting approximately 1970 years ago. Screenin:32 [facility] ED Fall Risk Assessment (Adult) History of falling in the last 3 months, kl including since admission No falls in past 3 months (0 pts) Confusion or Disorientation No (0 pts) Intoxicated or Sedated Impaired Gait No (0 pts) Mobility Assist Device Used No (0 pt) Altered Elimination No (0 pt) Score/Fall Risk Level 0 - 2 = Low Risk Oriented to surroundings, Maintained a safe environment. Abuse screen: Denies threats or abuse. Nutritional screening: No deficits noted. Tuberculosis screening: No symptoms or risk factors identified. Assessment: 20:31 General: Appears uncomfortable, well developed, well nourished, Behavior is calm, kl cooperative. Pain: Complains of pain in suprapubic area. Neuro: No deficits noted. Cardiovascular: No deficits noted. Respiratory: No deficits noted. GI: No deficits noted. No signs and/or symptoms were reported involving the gastrointestinal system. : Reports inability to void, since yesterday pain. 20:51 Reassessment: bladder scan completed 72ml noted MD updated pt tolerated well. Vital Signs: 20:20 BP 118 / 54; Pulse 65; Resp 18; Temp 98.1; Pulse Ox 96% ; Weight 96.16 kg; os ED Course: 20:07 Patient arrived in ED. [email or web address] 20:08 Jean-Claude Hill DO is Attending Physician. ms3 20:23 Triage completed. os 20:32 Patient has correct armband on for positive identification. Placed in gown. Bed in low kl position. Call light in reach. Side rails up X2. Adult w/ patient. Door closed. Warm blanket given. 20:52 No provider procedures requiring assistance completed. kl 22:53 Urinalysis w/ reflexes Sent. kl 23:35 Jamie Hillman MD is Referral Physician. ms3 23:55 Patient did not have IV access during this emergency room visit. kl Administered Medications: 22:53 Drug: Acetaminophen PO 1000 mg Route: PO; Medication: 20:51 VIS not applicable for this client. Outcome: 23:36 Discharge ordered by . ms3 23:55 Discharged to home ambulatory, with family. kl 23:55 Condition: stable 23:55 Discharge instructions given to patient, Instructed on discharge instructions, follow up and referral plans. Demonstrated understanding of instructions, follow-up care. 04/06 01:44 Patient left the ED. Signatures: Cony Santos RN RN Jean-Claude Hill DO DO ms3 Josephine Jacqueline [email or web address] Roya Love, BILLY RN os Corrections: (The following items were deleted from the chart) 04/05 20:23 20:23 PMHx: Hypertension; os os 20:23 20:23 PMHx: Atrial Fib; os os
[2023-04-06 01:49] VITALS: BP 118/54; TEMP 98.1; O2SAT 96
== END 2023-04-06 01:44 | disposition home or self-care (01) ==
LOC: ER 20:06
DX: R35.0 Frequency of micturition (principal); R39.198 Other difficulties with micturition
CPT/HCPCS: 81001; 99283